=== PATIENT | male | born 1955 | race Caucasian/White ===

== ENCOUNTER 2017-05-20 18:04 | Inpatient (IN) | payer OTHER ==
[~2017-05-20] VITALS: Ht 167.6 cm; Wt 59.0 kg
[2017-05-20 18:15] VITALS: BP 144/89
[2017-05-20] MEDS ORDERED: VITAMIN D1000 UNI1 ORAL (18:20)
[2017-05-20] MEDS ORDERED: VENTOLIN HFA18 GM INH (18:20)
[2017-05-20] MEDS ORDERED: SYMBICORT 1601 PUFFS INH (18:20)
[2017-05-20] MEDS ORDERED: PLAVIX75 MG ORAL (18:20)
[2017-05-20] MEDS ORDERED: CARVEDILOL3.125 MG ORAL (18:20)
[2017-05-20] MEDS ORDERED: TAMSULOSIN HCL0.4 MG ORAL (18:20)
[2017-05-20] MEDS ORDERED: LISINOPRIL20 MG ORAL (18:20)
[2017-05-20] MEDS ORDERED: SPIRIVA18 MCG INH (18:20)
[2017-05-20] MEDS ORDERED: Albuterol ud Inhalation HHN ONE (18:30)
[2017-05-20] MEDS ORDERED: Ketorolac 30mg Inj IV ONE (18:30)
[2017-05-20] MEDS ORDERED: Morphine Sulfate 2mg/ml Inj IVP ONE (18:30)
[2017-05-20] MEDS ORDERED: Ipratropium 0.02% Inh Soln 2.5ml UD HHN ONE (18:30)
[2017-05-20 19:14] LABS: BASOPHILS % (AUTO) 1.5 % (0.0-2.0); EOSINOPHILS % (AUTO) 0.9 % (0.0-3.0); LYMPHOCYTES % (AUTO) 16.7 % (20.0-45.0); MEAN CORPUSCULAR HEMOGLOBIN 22.4 PG (27.0-31.0); MEAN CORPUSCULAR HGB CONC 28.5 G/DL (32.0-36.0); MEAN CORPUSCULAR VOLUME 79 FL (80-99); MEAN PLATELET VOLUME 6.9 FL (6.5-10.1); MONOCYTES % (AUTO) 5.4 % (1.0-10.0); NEUTROPHILS % (AUTO) 75.6 % (45.0-75.0); PLATELET COUNT 258 K/UL (150-450); RED BLOOD COUNT 3.91 M/UL (4.70-6.10); RED CELL DISTRIBUTION WIDTH 19.4 % (11.6-14.8)
[2017-05-20 19:16] LABS: APPEARANCE,URINE CLEAR; KETONES,URINE NEGATIVE (NEGATIVE); LEUKOCYTE ESTERASE ,URINE 1+ (NEGATIVE); NITRITE,URINE NEGATIVE (NEGATIVE); PH,URINE 6.5 (4.5-8.0); PROTEIN,URINE 2+ (NEGATIVE); UROBILINOGEN,URINE NORMAL MG/DL (0.0-1.0)
[2017-05-20 19:22] LABS: ANION GAP 7 mmol/L (5-15); CALCIUM 9.6 MG/DL (8.5-10.1); CARBON DIOXIDE 31 MMOL/L (21-32); CHLORIDE 107 MMOL/L (98-107); CREATININE 0.8 MG/DL (0.55-1.30); GLOMERULAR FILTRATION RATE > 60 mL/min (>60); POTASSIUM 3.7 MMOL/L (3.5-5.1); SODIUM 144 MMOL/L (136-145)
[2017-05-20 19:26] LABS: ALANINE AMINOTRANSFERASE 14 U/L (12-78); ALBUMIN/GLOBULIN RATIO 0.7 (1.0-2.7); ASPARTATE AMINO TRANSFERASE 13 U/L (15-37); LIPASE 211 U/L (73-393); TOTAL PROTEIN 6.9 G/DL (6.4-8.2)
[2017-05-20 19:29] LABS: BACTERIA,URINE OCCASIONAL /HPF; RBC,URINE TNTC /HPF (0 - 0); SQUAMOUS EPITHELIAL CELL,UR OCCASIONAL /LPF (NONE/OCC)
[2017-05-20 19:35] LABS: PROTHROMBIN TIME 10.9 SEC (9.30-11.50)
[2017-05-20 19:41] VITALS: BP 134/88
[2017-05-20] MEDS ORDERED: Tamsulosin 0.4mg cap ORAL ONE (21:28)
[2017-05-20] MEDS ORDERED: Morphine Sulfate 4mg/ml Inj IVP ONE (21:30)
[2017-05-20] MEDS ORDERED: Tamsulosin 0.4mg cap ORAL STA (21:31)
--- NOTE | 2017-05-20 22:15 | Emergency Room Report ---
History of Present Illness General Chief Complaint: Abdominal Pain Source: Patient, EMS Present Illness HPI Patient presents with 3 days of right flank pain which is severe 8/10, pressure and aching. He also has pain in his right shoulder. He's had kidney stones in the past. The pain is constant and worsening. He has no pain medicines at home at this time. The pain in his arm is from a prior fracture. This pain is aching and radiates towards his body from the shoulder. He denies numbness. No recent trauma. Unable to see pain management MD for shoulder pain. Dyspnea and use of inhalers with wheezing. Non-productive cough. No dysuria, hematuria, change in bowels, rashes. No fevers. He is depressed because of the lack of pain control, though not suicidal. Allergies: Coded Allergies: No Known Allergies (Unverified , 05/20/17) Patient History Past Medical History: see triage record Social History: Reports: smoking Social History Narrative lives by himself Reviewed Nursing Documentation: PMH: Agreed, PSxH: Agreed Nursing Documentation-PMH Past Medical History: No History, Except For Hx Hypertension: Yes Hx COPD: Yes Review of Systems All Other Systems: negative except mentioned in HPI Physical Exam Vital Signs Date Time Temp Pulse Resp B/P (MAP) Pulse Ox O2 Delivery O2 Flow Rate FiO2 05/20/17 18:03 98.2 80 14 162/57 93 Room Air 05/20/17 19:10 21 Sp02 EP Interpretation: reviewed, normal General Appearance: no apparent distress, GCS 15, Chronically Ill Head: normocephalic, atraumatic Eyes: bilateral eye normal inspection, bilateral eye PERRL ENT: moist mucus membranes Neck: supple Respiratory: chest non-tender, wheezing, expiration, other - barrel chest Cardiovascular #1: regular rate, rhythm Cardiovascular #2: 2+ radial (R) Gastrointestinal: normal inspection, normal bowel sounds, non tender, no mass, non-distended Genitourinary: CVA tenderness (R) Musculoskeletal: back normal, gait/station normal, normal range of motion, tender - R upper arm/shoulder without crepetance Neurologic: alert, oriented x3, grossly normal Psychiatric: depressed affect Skin: normal inspection, warm/dry Medical Decision Making Diagnostic Impression: Primary Impression: Renal stone Additional Impressions: Hydronephrosis Qualified Codes: N13.2 - Hydronephrosis with renal and ureteral calculous obstruction Shoulder pain Qualified Codes: M25.511 - Pain in right shoulder; G89.29 - Other chronic pain COPD (chronic obstructive pulmonary disease) Qualified Codes: J43.1 - Panlobular emphysema ER Course Patient presents with R flank pain and shoulder pain with h/o renal stones. Ddx ; nephrolithiasis, renal colic, pyelonephritis, UTI, muscle strain amongst others. The shoulder pain sounds chronic although concern about hepatic referral. Evaluation with EKG, CXR, R shoulder film, renal ultrasound, labs. Treatment with analgesia, hydration, breathing treatments. Improved with breathing treatments. Labs unremarkable. U/S with hydronephrosis. CXR COPD. R shoulder with prior fx appears well healed. Flomax given. Repeat analgesia. Pain still severe. Based on obstructing stone and pain, admit med Dr. Mcgovern. Laboratory Tests Test 05/20/17 17:06 05/20/17 18:56 White Blood Count 8.0 K/UL (4.8-10.8) Red Blood Count 3.91 M/UL (4.70-6.10) L Hemoglobin 8.8 G/DL (14.2-18.0) L Hematocrit 30.8 % (42.0-52.0) L Mean Corpuscular Volume 79 FL (80-99) L Mean Corpuscular Hemoglobin 22.4 PG (27.0-31.0) L Mean Corpuscular Hemoglobin Concent 28.5 G/DL (32.0-36.0) L Red Cell Distribution Width 19.4 % (11.6-14.8) H Platelet Count 258 K/UL (150-450) Mean Platelet Volume 6.9 FL (6.5-10.1) Neutrophils (%) (Auto) 75.6 % (45.0-75.0) H Lymphocytes (%) (Auto) 16.7 % (20.0-45.0) L Monocytes (%) (Auto) 5.4 % (1.0-10.0) Eosinophils (%) (Auto) 0.9 % (0.0-3.0) Basophils (%) (Auto) 1.5 % (0.0-2.0) Prothrombin Time 10.9 SEC (9.30-11.50) Prothrombin Time INR 1.0 (0.9-1.1) PTT 25 SEC (23-33) Sodium Level 144 MMOL/L (136-145) Potassium Level 3.7 MMOL/L (3.5-5.1) Chloride Level 107 MMOL/L (98-107) Carbon Dioxide Level 31 MMOL/L (21-32) Anion Gap 7 mmol/L (5-15) Blood Urea Nitrogen 19 mg/dL (7-18) H Creatinine 0.8 MG/DL (0.55-1.30) Estimate Glomerular Filtration Rate > 60 mL/min (>60) Glucose Level 93 MG/DL (74-106) Calcium Level 9.6 MG/DL (8.5-10.1) Total Bilirubin 0.2 MG/DL (0.2-1.0) Aspartate Amino Transferase (AST) 13 U/L (15-37) L Alanine Aminotransferase (ALT) 14 U/L (12-78) Alkaline Phosphatase 88 U/L (46-116) Total Creatine Kinase 81 U/L (26-308) Troponin I 0.004 ng/mL (0.000-0.056) Total Protein 6.9 G/DL (6.4-8.2) Albumin 2.9 G/DL (3.4-5.0) L Globulin 4.0 g/dL Albumin/Globulin Ratio 0.7 (1.0-2.7) L Lipase 211 U/L (73-393) Urine Color Pale yellow Urine Appearance Clear Urine pH 6.5 (4.5-8.0) Urine Specific [place] 1.015 (1.005-1.035) Urine Protein 2+ (NEGATIVE) H Urine Glucose (UA) Negative (NEGATIVE) Urine Ketones Negative (NEGATIVE) Urine Occult Blood 4+ (NEGATIVE) H Urine Nitrite Negative (NEGATIVE) Urine Bilirubin Negative (NEGATIVE) Urine Urobilinogen Normal MG/DL (0.0-1.0) Urine Leukocyte Esterase 1+ (NEGATIVE) H Urine RBC Tntc /HPF (0 - 0) H Urine WBC 2-4 /HPF (0 - 0) Urine Squamous Epithelial Cells Occasional /LPF Urine Bacteria Occasional /HPF (NONE) EKG Diagnostic Results Rate: normal Rhythm: NSR ST Segments: no acute changes Rhythm Strip Diag. Results EP Interpretation: yes Rhythm: NSR, no PVC's, no ectopy Chest X-Ray Diagnostic Results Chest X-Ray Diagnostic Results : Chest X-Ray Ordered: Yes # of Views/Limited/Complete: 1 View Indication: Other EP Interpretation: Yes Interpretation: no effusion, no pneumothorax, other - COPD Impression: Other Electronically Signed by: Electronically signed by Girma Dobbins MD Other X-Ray Diagnostic Results Other X-Ray Diagnostic Results : X-Ray ordered: r shoulder # of Views/Limited Vs Complete: 3 View EP Interpretation: Yes Interpretation: no dislocation, no soft tissue swelling, other - Old fracture Impression: Other Electronically Signed by: Electronically signed by Girma Dobbins MD CT/MRI/US Diagnostic Results CT/MRI/US Diagnostic Results : Imaging Test Ordered: renal us Impression Mild to moderate right hydronephrosis. Echogenic and shadowing foci in the right kidney suggestive stones. Also appears to be dislodged in the elbow ureteral junctional. The suspected cause of the hydronephrosis. He does not be visualized. Bilateral renal cysts. Debris noted in the daughter suggested cystitis. Last Vital Signs Date Time Temp Pulse Resp B/P (MAP) Pulse Ox O2 Delivery O2 Flow Rate FiO2 05/20/17 23:23 98.7 68 23 102/67 99 Room Air 21 Status: improved Disposition: ADMITTED INPATIENT Condition: Serious Referrals: [employer] [facility],KEN[facility] (PCP) Girma Dobbins M.D. May 20, 2017 22:15
[2017-05-20 23:13] VITALS: BP 102/67
[2017-05-21 04:25] VITALS: BP 116/75
[2017-05-21] MEDS ORDERED: Morphine Sulfate 2mg/ml Inj IVP PRN ×2 (06:00→06:15)
[2017-05-21] MEDS ORDERED: Nitroglycerin Subl 0.4mg tab SL PRN (06:00)
[2017-05-21] MEDS ORDERED: Mylanta II UD 30ml ORAL PRN (06:00)
[2017-05-21] MEDS ORDERED: Miralax 17gm pkt ORAL PRN (06:00)
[2017-05-21] MEDS: D5 1/2NS 1,000 ML IV SCH ×2 (06:17→20:12)
[2017-05-21] MEDS: cefTRIAXone 1 GM in D5W 55 ML IVPB SCH (06:18)
[2017-05-21] MEDS: Morphine Sulfate 4mg/ml Inj IV PRN ×5 (06:20→20:52)
[2017-05-21 07:12] LABS: APPEARANCE,URINE CLEAR; KETONES,URINE NEGATIVE (NEGATIVE); LEUKOCYTE ESTERASE ,URINE 1+ (NEGATIVE); NITRITE,URINE NEGATIVE (NEGATIVE); PH,URINE 6 (4.5-8.0); PROTEIN,URINE 2+ (NEGATIVE); UROBILINOGEN,URINE NORMAL MG/DL (0.0-1.0)
[2017-05-21 07:42] LABS: BACTERIA,URINE FEW /HPF; RBC,URINE 20-30 /HPF (0 - 0); SQUAMOUS EPITHELIAL CELL,UR FEW /LPF (NONE/OCC)
[2017-05-21 08:00] VITALS: BP 121/77
[2017-05-21] MEDS: Heparin 5000 units/ml inj SUBQ SCH ×2 (08:46→20:56)
[2017-05-21] MEDS: Lisinopril 20mg tab ORAL SCH (08:47)
[2017-05-21] MEDS: Tamsulosin 0.4mg cap ORAL SCH ×2 (08:47→17:24)
--- NOTE | 2017-05-21 09:14 | Diagnostic Imaging Report ---
Indication: Chest pain Technique: One view of the chest Comparison: 04/09/2005 Findings: There is again demonstrated elevation of left hemidiaphragm. Interim development of a 13 mm spiculated nodule in the right midlung. There is some atelectasis at the left lung base. Lungs and pleural spaces are otherwise clear. Mild hyperinflation suggests COPD. Heart size is normal. There is thoracic scoliotic deformity again demonstrated Impression: Right midlung spiculated nodule, new since 2004, worrisome for neoplasm. Recommend chest CT for further evaluation. This was discussed with Dr. Mcgovern at the time of interpretation Stable elevation left hemidiaphragm No acute abnormality Other findings as noted, including scoliosis This agrees with the preliminary interpretation provided by the emergency room physician
--- NOTE | 2017-05-21 09:15 | Diagnostic Imaging Report ---
Indication: PAIN Technique: 3 views of the right shoulder Comparison: none Findings: There is an old healed fracture deformity of the right shoulder. No acute fractures. No dislocations. Joint spaces are preserved Impression:Positive for old healed right shoulder fracture. No acute bony trauma
--- NOTE | 2017-05-21 09:20 | Diagnostic Imaging Report ---
Indication: Right flank pain x3 days, history renal stones, occasional hematuria Technique: Grayscale and duplex images of the kidneys, retroperitoneum, and bladder were obtained. Comparison:None Findings: Right kidney measures 13.7 cm in length. Left kidney measures 13.1 cm in length. Both kidneys demonstrate slightly increased echogenicity.. There is moderate right hydronephrosis. Intrarenal calculi are demonstrated within the collecting system, largest in the lower pole measuring 12 mm diameter. There is what appears to be a calculus at the right ureteropelvic junction measuring at least 11 mm diameter. No left hydronephrosis. Multiple cysts are seen in both kidneys.. Normal inferior vena cava. Bladder contains urine with debris in it. Ureteral jets were not demonstrated. Impression: Moderate right hydronephrosis, possibly due to a large calculus at the right ureteropelvic junction. Multiple right intrarenal calculi Debris within the urinary bladder, possibly blood given history of hematuria Equivocal mildly increased echogenicity of the kidneys, could indicate medical renal disease. Bilateral renal cysts.
[2017-05-21 11:36] VITALS: BP 114/76
[2017-05-21 12:00] VITALS: BP 114/72
[2017-05-21] MEDS ORDERED: Ketorolac 30mg Inj IV PRN (14:00)
--- NOTE | 2017-05-21 14:58 | History and Physical ---
History of Present Illness General Date patient seen: May 21, 2017 Reason for Hospitalization: Abdominal Pain Present Illness HPI 61 year old male with hx of COPD presented with CC of left flank pain. He was diagnosed to have left kidney stone at Ureteropelvic junction. He is admitted for intractable pain. Allergies: Coded Allergies: No Known Allergies (Unverified , 05/20/17) Medication History Scheduled Albuterol Sulfate (Ventolin Hfa), 2 PUFFS INH EVERY 4 HOURS, (Reported) Budesonide/Formoterol Fumarate (Symbicort 160-4.5 Mcg Inhaler), Unknown Dose INH TWICE A DAY, (Reported) Carvedilol* (Carvedilol*), Unknown Dose ORAL DAILY, (Reported) Cholecalciferol (Vitamin D3)* (Vitamin D*), Unknown Dose ORAL DAILY, (Reported) Clopidogrel Bisulfate* (Plavix*), 75 MG ORAL DAILY, (Reported) Lisinopril (Lisinopril*), Unknown Dose ORAL DAILY, (Reported) Tamsulosin Hcl (Tamsulosin Hcl*), 0.4 MG ORAL BID, (Reported) Tiotropium [place]* (Spiriva*), 1 PUFF INH DAILY, (Reported) Patient History Healthcare decision maker Resuscitation status Full Code Advanced Directive on File Past Medical/Surgical History Past Medical/Surgical History: (1) COPD (chronic obstructive pulmonary disease) Review of Systems Genitourinary: Reports: other - flank pain All Other Systems: negative except mentioned in HPI Physical Exam General Appearance: WD/WN Lines, tubes and drains: peripheral HEENT: normocephalic, atraumatic Neck: non-tender, normal alignment, supple Respiratory/Chest: chest wall non-tender, lungs clear Cardiovascular/Chest: normal peripheral pulses, normal rate Abdomen: normal bowel sounds, non tender Extremities: normal range of motion, normal inspection Skin Exam: normal pigmentation Neurologic: operator prefinish II-XII grossly normal Lymphatic: anterior cervical Last 24 Hour Vital Signs Date Time Temp Pulse Resp B/P (MAP) Pulse Ox O2 Delivery O2 Flow Rate FiO2 05/21/17 12:00 96.6 86 19 114/72 97 05/21/17 12:00 96.6 05/21/17 11:36 97.2 57 114/76 95 Room Air 05/21/17 08:48 60 05/21/17 08:47 121/72 05/21/17 08:00 97.6 56 56 121/77 95 05/21/17 06:42 97 Room Air 05/21/17 04:25 97.5 60 18 116/75 97 05/21/17 04:00 Room Air 05/20/17 23:23 98.7 68 23 102/67 99 Room Air 21 05/20/17 23:13 98.7 68 23 102/67 99 Room Air 21 05/20/17 19:41 98.7 87 20 134/88 96 Room Air 21 05/20/17 19:20 72 20 96 Room Air 21 05/20/17 19:10 64 16 93 Room Air 21 05/20/17 19:10 64 16 Room Air 21 05/20/17 18:15 98.7 75 23 144/89 96 Room Air 05/20/17 18:03 98.2 80 14 162/57 93 Room Air Intake and Output 05/21/17 05/22/17 19:00 07:00 Intake Total 525 ml Balance 525 ml IV Total 525 ml Laboratory Tests Test 05/20/17 17:06 05/20/17 18:56 05/21/17 06:45 White Blood Count 8.0 K/UL (4.8-10.8) Red Blood Count 3.91 M/UL (4.70-6.10) L Hemoglobin 8.8 G/DL (14.2-18.0) L Hematocrit 30.8 % (42.0-52.0) L Mean Corpuscular Volume 79 FL (80-99) L Mean Corpuscular Hemoglobin 22.4 PG (27.0-31.0) L Mean Corpuscular Hemoglobin Concent 28.5 G/DL (32.0-36.0) L Red Cell Distribution Width 19.4 % (11.6-14.8) H Platelet Count 258 K/UL (150-450) Mean Platelet Volume 6.9 FL (6.5-10.1) Neutrophils (%) (Auto) 75.6 % (45.0-75.0) H Lymphocytes (%) (Auto) 16.7 % (20.0-45.0) L Monocytes (%) (Auto) 5.4 % (1.0-10.0) Eosinophils (%) (Auto) 0.9 % (0.0-3.0) Basophils (%) (Auto) 1.5 % (0.0-2.0) Prothrombin Time 10.9 SEC (9.30-11.50) Prothromb Time International Ratio 1.0 (0.9-1.1) Activated Partial Thromboplast Time 25 SEC (23-33) Sodium Level 144 MMOL/L (136-145) Potassium Level 3.7 MMOL/L (3.5-5.1) Chloride Level 107 MMOL/L (98-107) Carbon Dioxide Level 31 MMOL/L (21-32) Anion Gap 7 mmol/L (5-15) Blood Urea Nitrogen 19 mg/dL (7-18) H Creatinine 0.8 MG/DL (0.55-1.30) Estimat Glomerular Filtration Rate > 60 mL/min (>60) Glucose Level 93 MG/DL (74-106) Calcium Level 9.6 MG/DL (8.5-10.1) Total Bilirubin 0.2 MG/DL (0.2-1.0) Aspartate Amino Transf (AST/SGOT) 13 U/L (15-37) L Alanine Aminotransferase (ALT/SGPT) 14 U/L (12-78) Alkaline Phosphatase 88 U/L (46-116) Total Creatine Kinase 81 U/L (26-308) Troponin I 0.004 ng/mL (0.000-0.056) Total Protein 6.9 G/DL (6.4-8.2) Albumin 2.9 G/DL (3.4-5.0) L Globulin 4.0 g/dL Albumin/Globulin Ratio 0.7 (1.0-2.7) L Lipase 211 U/L (73-393) Urine Color Pale yellow Pale yellow Urine Appearance Clear Clear Urine pH 6.5 (4.5-8.0) 6 (4.5-8.0) Urine Specific [place] 1.015 (1.005-1.035) 1.015 (1.005-1.035) Urine Protein 2+ (NEGATIVE) H 2+ (NEGATIVE) H Urine Glucose (UA) Negative (NEGATIVE) Negative (NEGATIVE) Urine Ketones Negative (NEGATIVE) Negative (NEGATIVE) Urine Occult Blood 4+ (NEGATIVE) H 4+ (NEGATIVE) H Urine Nitrite Negative (NEGATIVE) Negative (NEGATIVE) Urine Bilirubin Negative (NEGATIVE) Negative (NEGATIVE) Urine Urobilinogen Normal MG/DL (0.0-1.0) Normal MG/DL (0.0-1.0) Urine Leukocyte Esterase 1+ (NEGATIVE) H 1+ (NEGATIVE) H Urine RBC Tntc /HPF (0 - 0) H 20-30 /HPF (0 - 0) H Urine WBC 2-4 /HPF (0 - 0) 5-10 /HPF (0 - 0) H Urine Squamous Epithelial Cells Occasional /LPF Few /LPF (NONE/OCC) Urine Bacteria Occasional /HPF (NONE) Few /HPF (NONE) Height (Feet): 5 Height (Inches): 9.00 Weight (Pounds): 130 Medications Current Medications Medications (Trade) Dose Ordered Sig/Katya Route PRN Reason Start Time Stop Time Status Last Admin Dose Admin Acetaminophen (Tylenol) 650 mg Q4H PRN ORAL fever 05/21/17 06:00 06/20/17 05:59 Al Hydroxide/Mg Hydroxide (Mylanta II) 30 ml Q6H PRN ORAL dyspepsia 05/21/17 06:00 06/20/17 05:59 Carvedilol (Coreg) 3.125 mg DAILY ORAL 05/21/17 09:00 06/20/17 08:59 05/21/17 08:48 Ceftriaxone Sodium 1 gm/ Dextrose 55 ml @ 110 mls/hr Q24H IVPB 05/21/17 06:00 05/28/17 05:59 05/21/17 06:18 Dextrose (Dextrose 50%) STAT PRN IV Hypoglycemia 05/21/17 06:00 06/20/17 05:59 Dextrose/Sodium Chloride 1,000 ml @ 75 mls/hr [id number] IV 05/21/17 05:46 06/20/17 05:45 05/21/17 06:17 Diphenhydramine HCl (Benadryl) 25 mg Q6H PRN ORAL Itching/Pruritis 05/21/17 06:00 06/20/17 05:59 Heparin Sodium (Porcine) (Heparin 5000 units/ml) 5,000 units EVERY 12 HOURS SUBQ 05/21/17 09:00 06/20/17 08:59 05/21/17 08:46 Ketorolac Tromethamine (Toradol 30mg) 15 mg Q6H PRN IV breakthrough pain 7-10 05/21/17 14:00 05/26/17 13:59 Lisinopril (Prinivil) 20 mg DAILY ORAL 05/21/17 09:00 06/20/17 08:59 05/21/17 08:47 Morphine Sulfate (Morphine Sulfate) 4 mg Q2H PRN IV For Pain (7-10) 05/21/17 06:00 05/28/17 05:59 05/21/17 11:31 Nitroglycerin (Ntg) 0.4 mg Q5M X 3 DOSES PRN SL Prn Chest Pain 05/21/17 06:00 06/20/17 05:59 Ondansetron HCl (Zofran) 4 mg Q6H PRN IVP Nausea & Vomiting 05/21/17 06:00 06/20/17 05:59 Polyethylene Glycol (Miralax) 17 gm HSPRN PRN ORAL Constipation 05/21/17 06:00 06/20/17 05:59 Tamsulosin HCl (Flomax) 0.4 mg BID ORAL 05/21/17 09:00 06/20/17 08:59 05/21/17 08:47 Temazepam (Restoril) 15 mg HSPRN PRN ORAL Insomnia 05/21/17 06:00 05/28/17 05:59 Assessment/Plan Problem List: (1) Renal stone ICD Codes: N20.0 - Calculus of kidney SNOMED: 73014026 (2) COPD (chronic obstructive pulmonary disease) ICD Codes: J44.9 - Chronic obstructive pulmonary disease, unspecified SNOMED: 20221680 Qualifiers: Qualified Codes: J43.1 - Panlobular emphysema (3) Hydronephrosis ICD Codes: N13.30 - Unspecified hydronephrosis SNOMED: 32741813 Qualifiers: Qualified Codes: N13.2 - Hydronephrosis with renal and ureteral calculous obstruction Assessment/Plan npo IV fluids pain management Urology evaluation. MAXIMILIANO COOLEY May 21, 2017 14:58
[2017-05-21 16:00] VITALS: BP 129/72
[2017-05-21] MEDS ORDERED: Tubing IV Secondary IV ONE (16:12)
[2017-05-21] MEDS ORDERED: D5 1/2NS 1000ml IV ONE (16:12)
[2017-05-21 20:00] VITALS: BP 128/78
[2017-05-21] MEDS: Ketorolac 30mg Inj IV SCH (20:52)
[2017-05-21] MEDS ORDERED: Tamsulosin 0.4mg cap ORAL SCH (21:00)
[2017-05-22] VITALS (13 sets, daily range): BP systolic 101–148; BP diastolic 70–88
[2017-05-22] MEDS: Morphine Sulfate 4mg/ml Inj IV PRN ×7 (00:18→20:47)
--- NOTE | 2017-05-22 00:30 | Consultation ---
DATE OF CONSULTATION: 05/21/2017 UROLOGY CONSULTATION ATTENDING/CONSULTING PHYSICIAN: Raheem Mcgovern M.D. CHIEF COMPLAINT/HISTORY OF PRESENT ILLNESS: I was asked by Dr. Mcgovern to evaluate this 62-year-old [place] Citizen gentleman regarding history of a right UPJ stone with hydronephrosis secondary to same. Briefly, the patient has a previous history of nephrolithiasis. He was seen at [facility] approximately a year ago regarding the same. He eventually followed up with Dr. Gutierrez to plan for surgery, but in the interim lost his insurance. He had since regained insurance, but has not been back to see the urologist yet. He presented to the hospital with right-sided flank and abdominal pain in addition to COPD exacerbation. Given the above, I was asked to evaluate the patient. PAST MEDICAL HISTORY: 1. Chronic obstructive pulmonary disease. 2. Nephrolithiasis. MEDICATIONS: Please see the chart for current medications and administration details. Briefly, the patient's medications include Toradol for pain. ALLERGIES: No known drug allergies. SOCIAL HISTORY: Unremarkable for tobacco, alcohol, or drug use. FAMILY HISTORY: Noncontributory. REVIEW OF SYSTEMS: A 12-system review of systems is essentially unremarkable outside of what is described above. PHYSICAL EXAMINATION: GENERAL: The patient is an older [place] Citizen gentleman, awake, alert, and oriented x4, very pleasant, no obvious distress. HEENT: NC/AT. EOMI. NECK: Supple. Full range of motion. Oropharynx clear. CHEST: Within normal limits. ABDOMEN: Soft, nontender, and nondistended. Somewhat cachectic. EXTREMITIES: Warm and well perfused. No cyanosis, clubbing, or edema. BACK: No true CVA tenderness to percussion. GENITOURINARY: Reveals normal male external genitalia. LABORATORY DATA: White blood cell count 8, hematocrit 30.8, and platelets 258,000. Sodium 144, potassium 3.7, chloride 107, bicarbonate 31, BUN 19, creatinine 0.8, glucose 93, and calcium 9.6. LFTs within normal limits. Troponin negative. Urinalysis, specific gravity 1.015 and pH 6. Dip test notable for 2+ protein, 4+ occult blood, 1+ leukocyte esterase, and few bacteria seen. DIAGNOSTIC IMAGING: Renal ultrasound with moderate right hydronephrosis, possibly secondary to large calculus at the right ureteropelvic junction measuring 11 mm in size. There is no left hydronephrosis, multiple cysts are seen in both kidneys. There are multiple right intrarenal calculi. There is debris in the bladder, possibly blood given history of hematuria. ASSESSMENT AND PLAN: In summary, the patient is a 62-year-old gentleman with a longstanding history of kidney stones. He was previously seen at an outside facility regarding the same. He had planned intervention, but lost his insurance, which he has now regained. He presents to the hospital with right-sided abdominal flank pain. Workup with an ultrasound revealed a possible 11 mm right UPJ stone with hydronephrosis secondary to same. Physical exam is unremarkable for any significant right CVA tenderness at this time. Laboratory data reveals evidence of microhematuria. Diagnostic imaging revealed the findings described above. Today at the bedside, I discussed these findings with the patient. We will keep him on Toradol and fluids and antibiotics if he appears to be starting to feel better. If he continues to improve, we will discharge him home and he can follow up as an outpatient with a planned contracted urologist to treat his stones. If he fails to improve, I will take him to the operating room for cystoscopy and placement of a right double-J stent to temporarily relieve his discomfort. The patient understands that even if the stent is placed, he will eventually need outpatient followup with a planned contracted urologist to treat his stones and remove the stent. Thank you for allowing me to participate in the care of this nice gentleman. Please do not hesitate to contact me with any questions that you may further have regarding his care. I will see him with you as needed. Daniel Fischer M.D. DR: PAPO JOB#: [id number] CC:
[2017-05-22] MEDS: Ketorolac 30mg Inj IV SCH ×4 (01:53→17:55)
[2017-05-22] MEDS: cefTRIAXone 1 GM in D5W 55 ML IVPB SCH (06:30)
[2017-05-22 07:27] LABS: BASOPHILS % (AUTO) 2.1 % (0.0-2.0); LYMPHOCYTES % (AUTO) 20.6 % (20.0-45.0); MEAN CORPUSCULAR HEMOGLOBIN 22.6 PG (27.0-31.0); MEAN CORPUSCULAR HGB CONC 28.7 G/DL (32.0-36.0); MEAN CORPUSCULAR VOLUME 79 FL (80-99); MEAN PLATELET VOLUME 7.1 FL (6.5-10.1); MONOCYTES % (AUTO) 7.2 % (1.0-10.0); NEUTROPHILS % (AUTO) 69.1 % (45.0-75.0); PLATELET COUNT 222 K/UL (150-450); RED BLOOD COUNT 3.74 M/UL (4.70-6.10); RED CELL DISTRIBUTION WIDTH 19.6 % (11.6-14.8); WHITE BLOOD COUNT 5.1 K/UL (4.8-10.8)
[2017-05-22 07:32] LABS: INR 1.1 (0.9-1.1); PROTHROMBIN TIME 11.5 SEC (9.30-11.50)
[2017-05-22 07:50] LABS: LACTATE DEHYDROGENASE 133 U/L (81-234)
[2017-05-22 07:57] LABS: ALANINE AMINOTRANSFERASE 21 U/L (12-78); ALBUMIN/GLOBULIN RATIO 0.7 (1.0-2.7); AMYLASE 51 U/L (25-115); ANION GAP 4 mmol/L (5-15); ASPARTATE AMINO TRANSFERASE 17 U/L (15-37); CALCIUM 9.5 MG/DL (8.5-10.1); CARBON DIOXIDE 29 MMOL/L (21-32); CHLORIDE 107 MMOL/L (98-107); CREATININE 0.5 MG/DL (0.55-1.30); GLOMERULAR FILTRATION RATE > 60 mL/min (>60); LIPASE 81 U/L (73-393); POTASSIUM 3.2 MMOL/L (3.5-5.1); SODIUM 140 MMOL/L (136-145); TOTAL PROTEIN 5.8 G/DL (6.4-8.2)
[2017-05-22 08:07] LABS: IRON 27 ug/dL (50-175); TOTAL IRON BINDING CAPACITY 273 ug/dL (250-450)
[2017-05-22] MEDS: D5 1/2NS 1,000 ML IV SCH ×2 (08:26→22:06)
[2017-05-22] MEDS: Heparin 5000 units/ml inj SUBQ SCH ×2 (08:33→22:04)
[2017-05-22] MEDS ORDERED: Potassium Chloride 10 MEQ in NS 110 ML IVPB SCH (09:00)
[2017-05-22 09:01] LABS: ERYTHROCYTE SEDIMENTATION RATE 4 MM/HR (0-20); PATH BLOOD SMEAR/OMC SENT TO PATHOLOGIST; RETICULOCYTE COUNT 2.7 % (0.0-2.0)
--- NOTE | 2017-05-22 10:34 | Diagnostic Imaging Report ---
Indication: Mass Technique: CT CHEST WITH CONTRAST. CT of the chest was obtained utilizing automated exposure control after the contrast. Axial, coronal and sagittal reformats were created. CT dose: Total DLP 746 mGycm; CTDI vol 0.2, 8.1, 129.8, 15 mGy Comparison: Correlation made to concurrent chest radiograph. Comparison made to CT of the chest 04/09/2005. Findings: Emphysematous changes are noted bilaterally, most severe in the apices. These have progressed compared to the prior CT. Within the superior segment of the right lower lobe there are rounded nodules with somewhat spiculated appearance. The larger more inferior nodule measures up to 1.2 cm in diameter and the more posterior and superior in nodule measures up to 1.1 cm in diameter. These nodes appear to be connected by a thin bridge of tissue. They are just underneath the right major fissure (series 9 image 58; series 8 image #32; series 7 image #35). No additional nodule is identified. There is unchanged elevation of the left hemidiaphragm with likely chronic scarring/atelectasis in the left lower lobe. There is trace right pleural effusion and dependent atelectasis in the right lower lobe. There is no abnormal pleural enhancement. A focus of calcification is noted within the posterior pleural on the right (series 5 image #26). Thoracic aorta is normal in caliber and slightly tortuous. Atherosclerotic vascular calcifications are noted, mild in the thoracic aorta and moderate to severe in the abdominal aorta. There is no evidence of aortic dissection. No large main or central pulmonary embolism identified. The pulmonary arteries are enlarged. There is no hilar or mediastinal adenopathy. Thyroid unremarkable in appearance. No suspicious bony lesion is identified. There is scoliosis with multilevel degenerative change of the thoracic spine. There is a simple renal cyst in the left kidney. There is mild to moderate hydronephrosis on the right related to a 1.5 cm stone in the right proximal ureter. Impression: Two adjacent spiculated nodules in the superior segment of the right lower lobe as above concerning for primary lung malignancy. Progressive emphysema. Enlargement of the pulmonary arteries suggesting pulmonary arterial hypertension. 1.5 cm stone in the proximal right ureter with right-sided hydroureter nephrosis. Additional findings as above. The CT scanner at [facility] is accredited by the [employer] and the scans are performed using protocols designed to limit radiation exposure to as low as reasonably achievable to attain images of sufficient resolution adequate for diagnostic evaluation.
[2017-05-22 10:38] LABS: ANISOCYTOSIS 2+; BAND NEUTROPHILS % (MANUAL) 0 % (0-8); BASOPHILS % (MANUAL) 1 % (0-2); EOSINOPHILS % (MANUAL) 1 % (0-3); HYPOCHROMASIA 2+; LYMPHOCYTES % (MANUAL) 19 % (20-45); MICROCYTES 1+; NEUTROPHILS % (MANUAL) 71 % (45-75); PLATELET ESTIMATE ADEQUATE; PLATELET MORPHOLOGY NORMAL; TOTAL CELLS COUNTED 100
--- NOTE | 2017-05-22 11:31 | Cardiology Report ---
APPROVED REPORT EKG Measurement Heart [id number] Normal sinus rhythm Normal ECG
[2017-05-22] MEDS: Tamsulosin 0.4mg cap ORAL SCH ×2 (11:42→17:55)
[2017-05-22] MEDS: Lisinopril 20mg tab ORAL SCH (11:43)
--- NOTE | 2017-05-22 12:40 | Anethesia Preoperative Eval ---
Anesthesia Pre-op PMH/ROS General Date of Evaluation: May 22, 2017 Anesthesiologist: Jeet ASA Score: ASA 2 Mallampati Score Class I : Soft palate, uvula, fauces, pillars visible Class II: Soft palate, uvula, fauces visible Class III: Soft palate, base of uvula visible Class IV: Only hard plate visible Mallampati Classification: Class II Surgeon: Lynda Diagnosis: Right ureter stone Surgical Procedure: Cystoscopy, right j-stent placement, retrograde pyelogram Anesthesia History: none Family History: no anesthesia problems Allergies: Coded Allergies: No Known Allergies (Unverified , 05/20/17) Past Medical History Cardiovascular: Reports: HTN, CAD - s/p 2 stents 2 year ago; stable as per patient, Denies: NH, valve dz, arrhythmia, other Pulmonary: Reports: COPD, Denies: asthma, PUSHPA, other Gastrointestinal/Genitourinary: Denies: GERD, CRI, ESRD, other Neurologic/Psychiatric: Denies: dementia, CVA, depression/anxiety, TIA, other Endocrine: Denies: DM, hypothyroidism, steroids, other HEENT: Denies: cataract (L), cataract (R), glaucoma, [place] (L), [place] (R), other Hematology/Immune: Denies: anemia, DVT, bleeding disorder, other Musculoskeletal/Integumentary: Denies: OA, RA, DJD, DDD, edema, other PSxH Narrative: Left THR Anesthesia Pre-op Phys. Exam Physician Exam Last Vital Signs Date Time Temp Pulse Resp B/P (MAP) Pulse Ox O2 Delivery O2 Flow Rate FiO2 05/22/17 11:43 131/84 05/22/17 11:07 97.4 05/22/17 08:27 68 05/22/17 08:00 18 93 Room Air 05/20/17 23:23 21 Constitutional: NAD Cardiovascular: RRR Respiratory: CTA Airway Exam Mallampati Score: Class II MO: full ROM: full Anesthesia Pre-op A/P Labs Hematology Test 05/22/17 04:35 White Blood Count 5.1 K/UL (4.8-10.8) Red Blood Count 3.74 M/UL (4.70-6.10) L Hemoglobin 8.4 G/DL (14.2-18.0) L Hematocrit 29.4 % (42.0-52.0) L Mean Corpuscular Volume 79 FL (80-99) L Mean Corpuscular Hemoglobin 22.6 PG (27.0-31.0) L Mean Corpuscular Hemoglobin Concent 28.7 G/DL (32.0-36.0) L Red Cell Distribution Width 19.6 % (11.6-14.8) H Platelet Count 222 K/UL (150-450) Mean Platelet Volume 7.1 FL (6.5-10.1) Neutrophils (%) (Auto) 69.1 % (45.0-75.0) Lymphocytes (%) (Auto) 20.6 % (20.0-45.0) Monocytes (%) (Auto) 7.2 % (1.0-10.0) Eosinophils (%) (Auto) 1.0 % (0.0-3.0) Basophils (%) (Auto) 2.1 % (0.0-2.0) H Differential Total Cells Counted 100 Neutrophils % (Manual) 71 % (45-75) Lymphocytes % (Manual) 19 % (20-45) L Monocytes % (Manual) 8 % (1-10) Eosinophils % (Manual) 1 % (0-3) Basophils % (Manual) 1 % (0-2) Band Neutrophils 0 % (0-8) Platelet Estimate Adequate Platelet Morphology Normal Hypochromasia 2+ Anisocytosis 2+ Microcytosis 1+ Erythrocyte Sedimentation Rate 4 MM/HR (0-20) Reticulocyte Count 2.7 % (0.0-2.0) H Coagulation Test 05/22/17 04:35 Prothrombin Time 11.5 SEC (9.30-11.50) Prothromb Time International Ratio 1.1 (0.9-1.1) Activated Partial Thromboplast Time 30 SEC (23-33) Chemistry Test 05/22/17 04:35 Sodium Level 140 MMOL/L (136-145) Potassium Level 3.2 MMOL/L (3.5-5.1) L Chloride Level 107 MMOL/L (98-107) Carbon Dioxide Level 29 MMOL/L (21-32) Anion Gap 4 mmol/L (5-15) L Blood Urea Nitrogen 13 mg/dL (7-18) Creatinine 0.5 MG/DL (0.55-1.30) L Estimat Glomerular Filtration Rate > 60 mL/min (>60) Glucose Level 79 MG/DL (74-106) Calcium Level 9.5 MG/DL (8.5-10.1) Iron Level 27 ug/dL (50-175) L Total Iron Binding Capacity 273 ug/dL (250-450) Percent Iron Saturation 10 % (15-50) L Unsaturated Iron Binding 246 ug/dL (112-346) Total Bilirubin 0.4 MG/DL (0.2-1.0) Aspartate Amino Transf (AST/SGOT) 17 U/L (15-37) Alanine Aminotransferase (ALT/SGPT) 21 U/L (12-78) Alkaline Phosphatase 80 U/L (46-116) Lactate Dehydrogenase 133 U/L (81-234) Total Protein 5.8 G/DL (6.4-8.2) L Albumin 2.3 G/DL (3.4-5.0) L Globulin 3.5 g/dL Albumin/Globulin Ratio 0.7 (1.0-2.7) L Amylase Level 51 U/L (25-115) Lipase 81 U/L (73-393) Vitamin B12 Level 290 PG/ML (193-986) Folate 19.0 NG/ML (8.6-58.9) Studies Pre-op Studies: EKG - sr Risk Assessment & Plan Assessment: ASA II Plan: GA Status Change Before Surgery: No Pre-Antibiotics Drug: Ancef 1g Given Within 1 Hr of Incision: Yes Time Given: 15:30 ONEYDA SMITH M.D. May 22, 2017 12:40
[2017-05-22] MEDS ORDERED: D5 1/2NS 1000ml IV ONE (15:44)
--- NOTE | 2017-05-22 16:14 | Pre-Procedure Note/Attestation ---
Pre-Procedure Note/Attestation Complete Prior to Procedure Planned Procedure: right Procedure Narrative: cystoscopy, JJ stent placement and fluoroscopy Indications for Procedure Pre-Operative Diagnosis: R ureteral stone/ hydro/ colic Attestation I attest that I discussed the nature of the procedure; its benefits; risks and complications; and alternatives (and the risks and benefits of such alternatives ), prior to the procedure, with the patient (or the patient's legal sales representative advertising). I attest that, if there was a reasonable possibility of needing a blood transfusion, the patient (or the patient's legal sales representative advertising) was given the [facility] standardized written summary, pursuant to the William Derek Blood Safety Act ([place] Health and Safety Code # 1645, as amended). I attest that I re-evaluated the patient just prior to the surgery and that there has been no change in the patient's H&P, except as documented below: Daniel Fischer M.D. May 22, 2017 16:14
--- NOTE | 2017-05-22 16:24 | Pulmonology Progress Note ---
Assessment/Plan Problems: (1) Renal stone (2) COPD (chronic obstructive pulmonary disease) (3) Hydronephrosis Assessment/Plan for stent today pain management symptomatic treatment Subjective ROS Limited/Unobtainable: No Constitutional: Reports: no symptoms HEENT: Repors: no symptoms Allergies: Coded Allergies: No Known Allergies (Unverified , 05/20/17) Objective Last 24 Hour Vital Signs Date Time Temp Pulse Resp B/P (MAP) Pulse Ox O2 Delivery O2 Flow Rate FiO2 05/22/17 15:12 97.4 05/22/17 12:59 97.4 05/22/17 12:00 97.7 60 18 148/88 95 Room Air 05/22/17 11:43 131/84 05/22/17 08:27 68 131/84 05/22/17 08:00 97.4 68 18 131/84 93 Room Air 05/22/17 04:00 98.0 58 18 144/80 93 Room Air 05/22/17 00:00 97.8 54 18 147/81 95 Room Air 05/21/17 20:00 97.3 51 18 128/78 95 Room Air Intake and Output 05/22/17 05/23/17 18:59 06:59 Intake Total 840 ml Output Total 800 ml Balance 40 ml Intake Oral 240 ml IV Total 600 ml Output Urine Total 800 ml General Appearance: WD/WN HEENT: normocephalic Respiratory/Chest: chest wall non-tender, lungs clear Cardiovascular: normal peripheral pulses, normal rate Abdomen: normal bowel sounds, soft, non tender Genitourinary: normal external genitalia Extremities: no cyanosis Skin: no rash, no lesions Microbiology Date/Time Source Procedure Growth Status 05/21/17 06:45 Straight Cath Urine Culture - Preliminary NO GROWTH AFTER 24 HOURS Resulted Laboratory Tests 05/22/17 04:35: White Blood Count 5.1, Red Blood Count 3.74L, Hemoglobin 8.4L, Hematocrit 29.4L , Mean Corpuscular Volume 79L, Mean Corpuscular Hemoglobin 22.6L, Mean Corpuscular Hemoglobin Concent 28.7L, Red Cell Distribution Width 19.6H, Platelet Count 222, Mean Platelet Volume 7.1, Neutrophils (%) (Auto) 69.1, Lymphocytes (%) (Auto) 20.6, Monocytes (%) (Auto) 7.2, Eosinophils (%) (Auto) 1.0, Basophils (%) (Auto) 2.1H, Differential Total Cells Counted 100, Neutrophils % (Manual) 71, Lymphocytes % (Manual) 19L, Monocytes % (Manual) 8, Eosinophils % (Manual) 1, Basophils % (Manual) 1, Band Neutrophils 0, Platelet Estimate Adequate, Platelet Morphology Normal, Hypochromasia 2+, Anisocytosis 2+ , Microcytosis 1+, Erythrocyte Sedimentation Rate 4, Reticulocyte Count 2.7H, Prothrombin Time 11.5, Prothromb Time International Ratio 1.1, Activated Partial Thromboplast Time 30, Sodium Level 140, Potassium Level 3.2L, Chloride Level 107, Carbon Dioxide Level 29, Anion Gap 4L, Blood Urea Nitrogen 13, Creatinine 0.5L, Estimat Glomerular Filtration Rate > 60, Glucose Level 79, Calcium Level 9.5, Iron Level 27L, Total Iron Binding Capacity 273, Percent Iron Saturation 10L, Unsaturated Iron Binding 246, Total Bilirubin 0.4, Aspartate Amino Transf (AST/SGOT) 17, Alanine Aminotransferase (ALT/SGPT) 21, Alkaline Phosphatase 80, Lactate Dehydrogenase 133, Total Protein 5.8L, Albumin 2.3L, Globulin 3.5, Albumin/Globulin Ratio 0.7L, Amylase Level 51, Lipase 81, Vitamin B12 Level 290, Folate 19.0 Current Medications Medications (Trade) Dose Ordered Sig/Katya Route PRN Reason Start Time Stop Time Status Last Admin Dose Admin Acetaminophen (Tylenol) 650 mg Q4H PRN ORAL fever 05/21/17 06:00 06/20/17 05:59 Al Hydroxide/Mg Hydroxide (Mylanta II) 30 ml Q6H PRN ORAL dyspepsia 05/21/17 06:00 06/20/17 05:59 Carvedilol (Coreg) 3.125 mg DAILY ORAL 05/21/17 09:00 06/20/17 08:59 05/22/17 08:27 Ceftriaxone Sodium 1 gm/ Dextrose 55 ml @ 110 mls/hr Q24H IVPB 05/21/17 06:00 05/28/17 05:59 05/22/17 06:30 Dextrose (Dextrose 50%) STAT PRN IV Hypoglycemia 05/21/17 06:00 06/20/17 05:59 Dextrose/Sodium Chloride 1,000 ml @ 75 mls/hr [id number] IV 12/7/17 05:46 06/20/17 05:45 05/21/17 20:12 Diphenhydramine HCl (Benadryl) 25 mg Q6H PRN ORAL Itching/Pruritis 05/21/17 06:00 06/20/17 05:59 Heparin Sodium (Porcine) (Heparin 5000 units/ml) 5,000 units EVERY 12 HOURS SUBQ 05/21/17 09:00 06/20/17 08:59 05/21/17 20:56 Ketorolac Tromethamine (Toradol 30mg) 15 mg Q6HR IV 05/21/17 20:30 05/26/17 20:29 05/22/17 12:29 Lisinopril (Prinivil) 20 mg DAILY ORAL 05/21/17 09:00 06/20/17 08:59 05/22/17 11:43 Morphine Sulfate (Morphine Sulfate) 4 mg Q2H PRN IV For Pain (7-10) 05/21/17 06:00 05/28/17 05:59 05/22/17 14:42 Nitroglycerin (Ntg) 0.4 mg Q5M X 3 DOSES PRN SL Prn Chest Pain 05/21/17 06:00 06/20/17 05:59 Ondansetron HCl (Zofran) 4 mg Q6H PRN IVP Nausea & Vomiting 05/21/17 06:00 06/20/17 05:59 Polyethylene Glycol (Miralax) 17 gm HSPRN PRN ORAL Constipation 05/21/17 06:00 06/20/17 05:59 Tamsulosin HCl (Flomax) 0.4 mg BID ORAL 05/21/17 09:00 06/20/17 08:59 05/22/17 11:42 Temazepam (Restoril) 15 mg HSPRN PRN ORAL Insomnia 05/21/17 06:00 05/28/17 05:59 MAXIMILIANO COOLEY May 22, 2017 16:24
[2017-05-22] MEDS ORDERED: Propofol 200mg/20ml IV ONE (16:34)
[2017-05-22] MEDS ORDERED: Iothalamate Meglumine 60% 30ML INJ ONE (16:35)
[2017-05-22] MEDS ORDERED: fentaNYL 100 mcg/2 mL IV ONE (17:00)
[2017-05-22] MEDS ORDERED: Sterile Water Irrig 1000ml IRRIG ONE (17:00)
[2017-05-22] MEDS ORDERED: LR 1000ml ONE (17:00)
[2017-05-22] MEDS ORDERED: NS Irrig 1000ml ONE (17:00)
[2017-05-22] MEDS ORDERED: Lidocaine 1% MPF 10mg/ml 5ml ONE (17:00)
[2017-05-22] MEDS ORDERED: Midazolam 2mg/2ml Inj ONE (17:00)
[2017-05-22] MEDS ORDERED: NS Irrig 4000ml IRRIG ONE (17:27)
--- NOTE | 2017-05-22 17:54 | Immediate Post-Op Evaluation ---
Immediate Post-Op Evalulation Immediate Post-Op Evalulation Procedure: Cystoscopy, right j-stent placement, retrograde pyelogram Date of Evaluation: May 22, 2017 Time of Evaluation: 17:57 IV Fluids: 500 Blood Products: 0 Estimated Blood Loss: min Urinary Output: 0 Blood Pressure Systolic: 101 Blood Pressure Diastolic: 71 Pulse Rate: 51 Respiratory Rate: 16 O2 Sat by Pulse Oximetry: 100 Temperature (Fahrenheit): 99.2 Pain Score (1-10): 0 Nausea: No Vomiting: No Complications 0 Patient Status: awake, reacts, patent, none Hydration Status: adequate Drug: Ancef 1g Given Within 1 Hr of Incision: Yes Time Given: 17:15 ONEYDA SMITH M.D. May 22, 2017 17:54
[2017-05-22] MEDS ORDERED: DiphenhydrAMINE 50mg/ml Inj IVP PRN (18:00)
[2017-05-22] MEDS ORDERED: fentaNYL 100 mcg/2 mL IV PRN (18:00)
[2017-05-22] MEDS ORDERED: Hydromorphone 0.5mg/0.5ml inj IVP PRN (18:00)
[2017-05-22] MEDS ORDERED: LR 1000ml 1,000 ML IVLG SCH (18:15)
[2017-05-23] VITALS (7 sets, daily range): BP systolic 110–150; BP diastolic 60–89
[2017-05-23] MEDS: Ketorolac 30mg Inj IV SCH ×4 (00:30→18:05)
[2017-05-23] MEDS: Morphine Sulfate 4mg/ml Inj IV PRN ×5 (00:30→17:02)
--- NOTE | 2017-05-23 02:00 | Operative Note - Dictated ---
DATE OF OPERATION: 05/22/2017 PREOPERATIVE DIAGNOSIS: Right ureteral stone with hydronephrosis secondary to the same. POSTOPERATIVE DIAGNOSIS: Right ureteral stone with hydronephrosis secondary to the same. PROCEDURE PERFORMED: Cystoscopy with right double-J stent placement and fluoroscopy. SURGEON: Daniel Fischer M.D. ANESTHESIA: General/LMA. ANESTHESIOLOGIST: Dr. Marcano, attending. ESTIMATED BLOOD LOSS: None. IV FLUIDS: IV crystalloid only. DRAINS: Tubes and catheters 6-[place]ayan x 26 cm double-J stent left indwelling. SPECIMENS: None. COMPLICATIONS: None. OPERATIVE INDICATION: The patient is a 62-year-old gentleman with a history of long-standing kidney stones. He presented to the hospital with right renal colic. Workup with ultrasound and CT scan revealed a right UPJ stone with hydronephrosis and colic secondary to the same. The stone was 1.5 cm in size. The patient was counseled. He elected to undergo the procedure described above. It was made very clear to the patient that the stent is a temporary measure to relieve his pain and that he would eventually need outpatient follow up with a planned contracted urologist to both treat his stones and remove the stent. He understood and verbalized acceptance of this plan and agreed to follow up as an outpatient with a planned contracted urologist for removal of the stent within six months and treatment of his stone. He was scheduled for the procedure at [facility] on 05/22/2017. OPERATIVE NOTE IN DETAIL: The patient was brought to the operating room and placed on table in supine position. General anesthesia was induced. Once the patient had his LMA placed, he was repositioned in dorsal lithotomy and draped and prepped in the usual sterile fashion. Using the 23-Uruguayan cystoscope, the patient's urethral meatus was calibrated. The scope was passed along the length of the urethra. The urethra and prostate were within normal limits. The bladder was then entered and inspected. There was no evidence of masses, tumors, or stones and both ureteral orifices were identified. Attention was turned to the right ureteral orifice into which a 0.035 Glidewire was cannulated. The wire curled nicely in the kidney and was used to pass a 6-[place] x 26 cm double-J stent into the right renal collecting system with a good curl noted fluoroscopically within the kidney and cystoscopically within the bladder. Once the stent was in place, the bladder was evacuated through the scope and the scope was removed. The patient was taken out of the dorsal lithotomy and placed back in supine position. He was cleaned, dried, and dressed. He was awakened and extubated in the operating room without difficulty and transported to recovery in stable condition. I was present and scrubbed for the entire duration of this case. All needle, sponge, and instrument counts were reported correct. Daniel Fischer M.D. DR: [place] JOB#: [id number] CC:
[2017-05-23] MEDS: cefTRIAXone 1 GM in D5W 55 ML IVPB SCH (06:22)
[2017-05-23] MEDS: Lisinopril 20mg tab ORAL SCH (09:00)
[2017-05-23] MEDS: Tamsulosin 0.4mg cap ORAL SCH ×2 (09:14→18:05)
[2017-05-23] MEDS: Heparin 5000 units/ml inj SUBQ SCH ×2 (09:24→22:01)
[2017-05-23] MEDS: D5 1/2NS 1,000 ML IV SCH ×2 (11:06→18:06)
[2017-05-23] MEDS ORDERED: Tubing IV Secondary IV ONE (14:52)
--- NOTE | 2017-05-23 16:58 | Pulmonology Progress Note ---
Assessment/Plan Problems: (1) Renal stone (2) COPD (chronic obstructive pulmonary disease) (3) Hydronephrosis (4) Lung mass Assessment/Plan doing better ct guided lung biopsy pain management symptomatic treatment Subjective ROS Limited/Unobtainable: No - tolera Interval Events: tolerated surgery very well Allergies: Coded Allergies: No Known Allergies (Unverified , 05/20/17) Objective Last 24 Hour Vital Signs Date Time Temp Pulse Resp B/P (MAP) Pulse Ox O2 Delivery O2 Flow Rate FiO2 05/23/17 12:00 97.6 54 18 114/70 96 Nasal Cannula 2.0 05/23/17 09:06 97.7 58 18 111/60 98 Nasal Cannula 2.0 05/23/17 09:00 111/60 05/23/17 09:00 58 111/60 05/23/17 08:46 Nasal Cannula 2.0 28 05/23/17 08:46 95 Nasal Cannula 2.0 28 05/23/17 08:00 97.7 61 18 110/60 98 Nasal Cannula 2.0 05/23/17 06:52 97.6 05/23/17 06:52 97.6 05/23/17 04:00 97.6 65 18 150/89 94 Nasal Cannula 2.0 05/23/17 00:00 97.7 67 20 127/82 95 Room Air 05/22/17 20:09 Nasal Cannula 2.0 28 05/22/17 20:09 94 Nasal Cannula 2.0 28 05/22/17 20:00 98.0 56 20 124/79 95 Nasal Cannula 2.0 05/22/17 18:58 97.2 59 20 132/81 93 Nasal Cannula 2.0 05/22/17 18:52 98.7 05/22/17 18:35 98.7 49 15 136/87 100 Nasal Cannula 3.0 05/22/17 18:25 48 13 146/83 100 Nasal Cannula 3.0 05/22/17 18:15 46 16 125/75 100 Nasal Cannula 3.0 05/22/17 18:10 47 15 122/83 100 Nasal Cannula 3.0 05/22/17 18:00 51 14 109/73 100 Nasal Cannula 3.0 05/22/17 17:55 56 17 109/70 100 Simple Mask 6.0 05/22/17 17:54 51 16 100 05/22/17 17:52 99.4 53 16 101/71 100 Simple Mask 6.0 General Appearance: WD/WN HEENT: normocephalic, atraumatic, PERRL Respiratory/Chest: lungs clear Cardiovascular: normal peripheral pulses, normal rate, regular rhythm Abdomen: soft, non tender Genitourinary: normal external genitalia Extremities: no cyanosis Neurologic/Psychiatric: no motor/sensory deficits Microbiology Date/Time Source Procedure Growth Status 05/21/17 06:45 Straight Cath Urine Culture - Final NO GROWTH AFTER 48 HOURS Complete Current Medications Medications (Trade) Dose Ordered Sig/Katya Route PRN Reason Start Time Stop Time Status Last Admin Dose Admin Acetaminophen (Tylenol) 650 mg Q4H PRN ORAL fever 05/21/17 06:00 06/20/17 05:59 Al Hydroxide/Mg Hydroxide (Mylanta II) 30 ml Q6H PRN ORAL dyspepsia 05/21/17 06:00 06/20/17 05:59 Carvedilol (Coreg) 3.125 mg DAILY ORAL 05/21/17 09:00 06/20/17 08:59 05/22/17 08:27 Ceftriaxone Sodium 1 gm/ Dextrose 55 ml @ 110 mls/hr Q24H IVPB 05/21/17 06:00 05/28/17 05:59 05/23/17 06:22 Dextrose (Dextrose 50%) STAT PRN IV Hypoglycemia 05/21/17 06:00 06/20/17 05:59 Dextrose/Sodium Chloride 1,000 ml @ 75 mls/hr [id number] IV 05/21/17 05:46 06/20/17 05:45 05/22/17 22:06 Diphenhydramine HCl (Benadryl) 25 mg Q6H PRN ORAL Itching/Pruritis 05/21/17 06:00 06/20/17 05:59 Heparin Sodium (Porcine) (Heparin 5000 units/ml) 5,000 units EVERY 12 HOURS SUBQ 05/21/17 09:00 06/20/17 08:59 05/23/17 09:24 Ketorolac Tromethamine (Toradol 30mg) 15 mg Q6HR IV 05/21/17 20:30 05/26/17 20:29 05/23/17 12:19 Lisinopril (Prinivil) 20 mg DAILY ORAL 05/21/17 09:00 06/20/17 08:59 05/22/17 11:43 Morphine Sulfate (Morphine Sulfate) 4 mg Q2H PRN IV For Pain (7-10) 05/21/17 06:00 05/28/17 05:59 05/23/17 12:19 Nitroglycerin (Ntg) 0.4 mg Q5M X 3 DOSES PRN SL Prn Chest Pain 05/21/17 06:00 06/20/17 05:59 Ondansetron HCl (Zofran) 4 mg Q6H PRN IVP Nausea & Vomiting 05/21/17 06:00 06/20/17 05:59 Polyethylene Glycol (Miralax) 17 gm HSPRN PRN ORAL Constipation 05/21/17 06:00 06/20/17 05:59 Tamsulosin HCl (Flomax) 0.4 mg BID ORAL 05/21/17 09:00 06/20/17 08:59 05/23/17 09:14 Temazepam (Restoril) 15 mg HSPRN PRN ORAL Insomnia 05/21/17 06:00 05/28/17 05:59 MAXIMILIANO COOLEY May 23, 2017 16:58
[2017-05-24] MEDS: Ketorolac 30mg Inj IV SCH ×4 (00:09→17:52)
[2017-05-24 00:32] VITALS: BP 140/84
[2017-05-24] MEDS: Morphine Sulfate 4mg/ml Inj IV PRN ×5 (04:03→20:09)
[2017-05-24 04:40] VITALS: BP 137/82
[2017-05-24] MEDS: cefTRIAXone 1 GM in D5W 55 ML IVPB SCH (06:24)
[2017-05-24] MEDS: D5 1/2NS 1,000 ML IV SCH ×2 (06:57→13:43)
[2017-05-24 08:13] VITALS: BP 125/79
[2017-05-24] MEDS: Tamsulosin 0.4mg cap ORAL SCH ×2 (08:36→17:52)
[2017-05-24] MEDS: Lisinopril 20mg tab ORAL SCH (08:36)
[2017-05-24] MEDS: Heparin 5000 units/ml inj SUBQ SCH ×2 (08:37→20:09)
[2017-05-24] MEDS ORDERED: D5 1/2NS 1000ml IV ONE (10:03)
[2017-05-24 11:13] LABS: EOSINOPHILS % (AUTO) 1.4 % (0.0-3.0); LYMPHOCYTES % (AUTO) 13.2 % (20.0-45.0); MEAN CORPUSCULAR HEMOGLOBIN 22.6 PG (27.0-31.0); MEAN CORPUSCULAR HGB CONC 28.6 G/DL (32.0-36.0); MEAN CORPUSCULAR VOLUME 79 FL (80-99); MEAN PLATELET VOLUME 7.3 FL (6.5-10.1); MONOCYTES % (AUTO) 6.1 % (1.0-10.0); NEUTROPHILS % (AUTO) 78.4 % (45.0-75.0); PLATELET COUNT 227 K/UL (150-450); RED BLOOD COUNT 3.68 M/UL (4.70-6.10); WHITE BLOOD COUNT 7.3 K/UL (4.8-10.8)
[2017-05-24 11:56] VITALS: BP 127/78
[2017-05-24 15:43] VITALS: BP 128/82
--- NOTE | 2017-05-24 17:32 | Pulmonology Progress Note ---
Assessment/Plan Problems: (1) Renal stone (2) COPD (chronic obstructive pulmonary disease) (3) Hydronephrosis (4) Lung mass Assessment/Plan doing better ct guided lung biopsy in am pain management symptomatic treatment Subjective ROS Limited/Unobtainable: No Constitutional: Reports: no symptoms HEENT: Repors: no symptoms Allergies: Coded Allergies: No Known Allergies (Unverified , 05/20/17) Objective Last 24 Hour Vital Signs Date Time Temp Pulse Resp B/P (MAP) Pulse Ox O2 Delivery O2 Flow Rate FiO2 05/24/17 15:43 98.9 74 20 128/82 93 05/24/17 11:56 98.3 65 19 127/78 96 05/24/17 08:36 125/79 05/24/17 08:36 72 125/79 05/24/17 08:13 98.3 72 20 125/79 93 05/24/17 07:41 Nasal Cannula 2.0 28 05/24/17 07:40 96 Nasal Cannula 2.0 28 05/24/17 04:41 Room Air 05/24/17 04:40 98.2 62 18 137/82 91 05/24/17 00:33 Nasal Cannula 2.0 05/24/17 00:32 98.1 60 19 140/84 96 05/23/17 20:32 Nasal Cannula 2.0 05/23/17 20:31 99.2 59 18 124/66 96 05/23/17 20:07 Nasal Cannula 2.0 28 05/23/17 20:07 95 Nasal Cannula 2.0 28 Intake and Output 05/24/17 05/25/17 19:00 07:00 Intake Total 970 ml Balance 970 ml Intake Oral 670 ml IV Total 300 ml Objective General Appearance: WD/WN Lines, tubes and drains: peripheral, HEENT: normocephalic, atraumatic Neck: non-tender, normal alignment Respiratory/Chest: chest wall non-tender, lungs clear, normal breath sounds Breasts: no masses Cardiovascular/Chest: normal rate Abdomen: normal bowel sounds Extremities: normal range of motion Laboratory Tests 05/24/17 10:10: White Blood Count 7.3, Red Blood Count 3.68L, Hemoglobin 8.3L, Hematocrit 29.1L , Mean Corpuscular Volume 79L, Mean Corpuscular Hemoglobin 22.6L, Mean Corpuscular Hemoglobin Concent 28.6L, Red Cell Distribution Width 20.0H, Platelet Count 227, Mean Platelet Volume 7.3, Neutrophils (%) (Auto) 78.4H, Lymphocytes (%) (Auto) 13.2L, Monocytes (%) (Auto) 6.1, Eosinophils (%) (Auto) 1.4, Basophils (%) (Auto) 1.0 Current Medications Medications (Trade) Dose Ordered Sig/Katya Route PRN Reason Start Time Stop Time Status Last Admin Dose Admin Acetaminophen (Tylenol) 650 mg Q4H PRN ORAL fever 05/21/17 06:00 06/20/17 05:59 Al Hydroxide/Mg Hydroxide (Mylanta II) 30 ml Q6H PRN ORAL dyspepsia 05/21/17 06:00 06/20/17 05:59 Carvedilol (Coreg) 3.125 mg DAILY ORAL 05/21/17 09:00 06/20/17 08:59 05/24/17 08:36 Ceftriaxone Sodium 1 gm/ Dextrose 55 ml @ 110 mls/hr Q24H IVPB 05/21/17 06:00 05/28/17 05:59 05/24/17 06:24 Dextrose (Dextrose 50%) STAT PRN IV Hypoglycemia 05/21/17 06:00 06/20/17 05:59 Dextrose/Sodium Chloride 1,000 ml @ 75 mls/hr [id number] IV 05/21/17 05:46 06/20/17 05:45 05/24/17 13:43 Diphenhydramine HCl (Benadryl) 25 mg Q6H PRN ORAL Itching/Pruritis 05/21/17 06:00 06/20/17 05:59 Heparin Sodium (Porcine) (Heparin 5000 units/ml) 5,000 units EVERY 12 HOURS SUBQ 05/21/17 09:00 06/20/17 08:59 05/24/17 08:37 Ketorolac Tromethamine (Toradol 30mg) 15 mg Q6HR IV 05/21/17 20:30 05/26/17 20:29 05/24/17 12:04 Lisinopril (Prinivil) 20 mg DAILY ORAL 05/21/17 09:00 06/20/17 08:59 05/24/17 08:36 Morphine Sulfate (Morphine Sulfate) 4 mg Q2H PRN IV For Pain (7-10) 05/21/17 06:00 05/28/17 05:59 05/24/17 15:52 Nitroglycerin (Ntg) 0.4 mg Q5M X 3 DOSES PRN SL Prn Chest Pain 05/21/17 06:00 06/20/17 05:59 Ondansetron HCl (Zofran) 4 mg Q6H PRN IVP Nausea & Vomiting 05/21/17 06:00 06/20/17 05:59 Polyethylene Glycol (Miralax) 17 gm HSPRN PRN ORAL Constipation 05/21/17 06:00 06/20/17 05:59 Tamsulosin HCl (Flomax) 0.4 mg BID ORAL 05/21/17 09:00 06/20/17 08:59 05/24/17 08:36 Temazepam (Restoril) 15 mg HSPRN PRN ORAL Insomnia 05/21/17 06:00 05/28/17 05:59 MAXIMILIANO COOLEY May 24, 2017 17:32
[2017-05-24 20:00] VITALS: BP 156/90
[2017-05-24] MEDS: Norco 10mg/325mg tab ORAL PRN (21:45)
[2017-05-25] VITALS (9 sets, daily range): BP systolic 113–175; BP diastolic 73–116
[2017-05-25] MEDS: Morphine Sulfate 4mg/ml Inj IV PRN ×3 (00:13→09:17)
[2017-05-25] MEDS: Ketorolac 30mg Inj IV SCH ×4 (00:13→17:37)
[2017-05-25] MEDS: Norco 10mg/325mg tab ORAL PRN (04:52)
[2017-05-25] MEDS: D5 1/2NS 1,000 ML IV SCH ×3 (05:00→18:39)
[2017-05-25] MEDS: cefTRIAXone 1 GM in D5W 55 ML IVPB SCH (05:58)
[2017-05-25 06:35] LABS: INR 1.1 (0.9-1.1); PROTHROMBIN TIME 11.1 SEC (9.30-11.50)
[2017-05-25 06:47] LABS: MEAN CORPUSCULAR HEMOGLOBIN 23.3 PG (27.0-31.0); MEAN CORPUSCULAR HGB CONC 29.3 G/DL (32.0-36.0); MEAN CORPUSCULAR VOLUME 80 FL (80-99); MEAN PLATELET VOLUME 6.8 FL (6.5-10.1); PLATELET COUNT 169 K/UL (150-450); RED CELL DISTRIBUTION WIDTH 20.5 % (11.6-14.8); WHITE BLOOD COUNT 5.2 K/UL (4.8-10.8)
[2017-05-25 06:52] LABS: ALANINE AMINOTRANSFERASE 16 U/L (12-78); ALBUMIN/GLOBULIN RATIO 0.7 (1.0-2.7); ANION GAP 2 mmol/L (5-15); ASPARTATE AMINO TRANSFERASE 11 U/L (15-37); CALCIUM 9.5 MG/DL (8.5-10.1); CARBON DIOXIDE 32 MMOL/L (21-32); CHLORIDE 106 MMOL/L (98-107); CREATININE 0.5 MG/DL (0.55-1.30); GLOMERULAR FILTRATION RATE > 60 mL/min (>60); MAGNESIUM 1.8 MG/DL (1.8-2.4); PHOSPHORUS 2.6 MG/DL (2.5-4.9); POTASSIUM 4.3 MMOL/L (3.5-5.1); SODIUM 140 MMOL/L (136-145); TOTAL PROTEIN 5.7 G/DL (6.4-8.2)
--- NOTE | 2017-05-25 08:22 | Consultation ---
History of Present Illness General Date patient seen: May 25, 2017 Chief Complaint: Abdominal Pain Present Illness Allergies: Coded Allergies: No Known Allergies (Unverified , 05/20/17) Medication History Scheduled Albuterol Sulfate (Ventolin Hfa), 2 PUFFS INH EVERY 4 HOURS, (Reported) Budesonide/Formoterol Fumarate (Symbicort 160-4.5 Mcg Inhaler), Unknown Dose INH TWICE A DAY, (Reported) Carvedilol* (Carvedilol*), Unknown Dose ORAL DAILY, (Reported) Cholecalciferol (Vitamin D3)* (Vitamin D*), Unknown Dose ORAL DAILY, (Reported) Clopidogrel Bisulfate* (Plavix*), 75 MG ORAL DAILY, (Reported) Lisinopril (Lisinopril*), Unknown Dose ORAL DAILY, (Reported) Tamsulosin Hcl (Tamsulosin Hcl*), 0.4 MG ORAL BID, (Reported) Tiotropium [place]* (Spiriva*), 1 PUFF INH DAILY, (Reported) Patient History Healthcare decision maker Resuscitation status Full Code Advanced Directive on File Physical Exam Last 24 Hour Vital Signs Date Time Temp Pulse Resp B/P (MAP) Pulse Ox O2 Delivery O2 Flow Rate FiO2 05/25/17 04:01 Nasal Cannula 2.0 05/25/17 04:00 98.1 61 18 140/83 97 05/25/17 00:01 Nasal Cannula 2.0 05/25/17 00:00 97.9 61 17 113/73 98 05/24/17 20:01 Nasal Cannula 2.0 05/24/17 20:00 97.3 73 19 156/90 96 05/24/17 19:51 97 Nasal Cannula 2.0 28 05/24/17 19:51 Nasal Cannula 2.0 28 05/24/17 15:43 98.9 74 20 128/82 93 05/24/17 11:56 98.3 65 19 127/78 96 05/24/17 08:36 125/79 05/24/17 08:36 72 125/79 Laboratory Tests Test 05/24/17 10:10 05/25/17 04:40 White Blood Count 7.3 K/UL (4.8-10.8) 5.2 K/UL (4.8-10.8) Red Blood Count 3.68 M/UL (4.70-6.10) L 3.40 M/UL (4.70-6.10) L Hemoglobin 8.3 G/DL (14.2-18.0) L 7.9 G/DL (14.2-18.0) L Hematocrit 29.1 % (42.0-52.0) L 27.0 % (42.0-52.0) L Mean Corpuscular Volume 79 FL (80-99) L 80 FL (80-99) Mean Corpuscular Hemoglobin 22.6 PG (27.0-31.0) L 23.3 PG (27.0-31.0) L Mean Corpuscular Hemoglobin Concent 28.6 G/DL (32.0-36.0) L 29.3 G/DL (32.0-36.0) L Red Cell Distribution Width 20.0 % (11.6-14.8) H 20.5 % (11.6-14.8) H Platelet Count 227 K/UL (150-450) 169 K/UL (150-450) Mean Platelet Volume 7.3 FL (6.5-10.1) 6.8 FL (6.5-10.1) Neutrophils (%) (Auto) 78.4 % (45.0-75.0) H % (45.0-75.0) Lymphocytes (%) (Auto) 13.2 % (20.0-45.0) L % (20.0-45.0) Monocytes (%) (Auto) 6.1 % (1.0-10.0) % (1.0-10.0) Eosinophils (%) (Auto) 1.4 % (0.0-3.0) % (0.0-3.0) Basophils (%) (Auto) 1.0 % (0.0-2.0) % (0.0-2.0) Neutrophils % (Manual) Pending Lymphocytes % (Manual) Pending Platelet Estimate Pending Platelet Morphology Pending Prothrombin Time 11.1 SEC (9.30-11.50) Prothromb Time International Ratio 1.1 (0.9-1.1) Activated Partial Thromboplast Time 31 SEC (23-33) Sodium Level 140 MMOL/L (136-145) Potassium Level 4.3 MMOL/L (3.5-5.1) Chloride Level 106 MMOL/L (98-107) Carbon Dioxide Level 32 MMOL/L (21-32) Anion Gap 2 mmol/L (5-15) L Blood Urea Nitrogen 11 mg/dL (7-18) Creatinine 0.5 MG/DL (0.55-1.30) L Estimat Glomerular Filtration Rate > 60 mL/min (>60) Glucose Level 90 MG/DL (74-106) Calcium Level 9.5 MG/DL (8.5-10.1) Phosphorus Level 2.6 MG/DL (2.5-4.9) Magnesium Level 1.8 MG/DL (1.8-2.4) Total Bilirubin 0.2 MG/DL (0.2-1.0) Aspartate Amino Transf (AST/SGOT) 11 U/L (15-37) L Alanine Aminotransferase (ALT/SGPT) 16 U/L (12-78) Alkaline Phosphatase 82 U/L (46-116) Total Protein 5.7 G/DL (6.4-8.2) L Albumin 2.3 G/DL (3.4-5.0) L Globulin 3.4 g/dL Albumin/Globulin Ratio 0.7 (1.0-2.7) L Height (Feet): 5 Height (Inches): 9.00 Weight (Pounds): 130 Medications Current Medications Medications (Trade) Dose Ordered Sig/Katya Route PRN Reason Start Time Stop Time Status Last Admin Dose Admin Acetaminophen (Tylenol) 650 mg Q4H PRN ORAL fever 05/21/17 06:00 06/20/17 05:59 Acetaminophen/ Hydrocodone Bitart ([place] 10/325) 1 ea Q6H PRN ORAL Pain Scale (6-10) 05/24/17 21:30 05/31/17 21:29 05/25/17 04:52 Al Hydroxide/Mg Hydroxide (Mylanta II) 30 ml Q6H PRN ORAL dyspepsia 05/21/17 06:00 06/20/17 05:59 Carvedilol (Coreg) 3.125 mg DAILY ORAL 05/21/17 09:00 06/20/17 08:59 05/24/17 08:36 Ceftriaxone Sodium 1 gm/ Dextrose 55 ml @ 110 mls/hr Q24H IVPB 05/21/17 06:00 05/28/17 05:59 05/25/17 05:58 Dextrose (Dextrose 50%) STAT PRN IV Hypoglycemia 05/21/17 06:00 06/20/17 05:59 Dextrose/Sodium Chloride 1,000 ml @ 75 mls/hr [id number] IV 05/21/17 05:46 06/20/17 05:45 05/25/17 05:00 Diphenhydramine HCl (Benadryl) 25 mg Q6H PRN ORAL Itching/Pruritis 05/21/17 06:00 06/20/17 05:59 Heparin Sodium (Porcine) (Heparin 5000 units/ml) 5,000 units EVERY 12 HOURS SUBQ 05/21/17 09:00 06/20/17 08:59 05/24/17 20:09 Ketorolac Tromethamine (Toradol 30mg) 15 mg Q6HR IV 05/21/17 20:30 05/26/17 20:29 05/25/17 06:52 Lisinopril (Prinivil) 20 mg DAILY ORAL 05/21/17 09:00 06/20/17 08:59 05/24/17 08:36 Morphine Sulfate (Morphine Sulfate) 4 mg Q2H PRN IV Severe Breakthru Pain (>7) 05/24/17 22:00 05/31/17 21:59 05/25/17 05:58 Nitroglycerin (Ntg) 0.4 mg Q5M X 3 DOSES PRN SL Prn Chest Pain 05/21/17 06:00 06/20/17 05:59 Ondansetron HCl (Zofran) 4 mg Q6H PRN IVP Nausea & Vomiting 05/21/17 06:00 06/20/17 05:59 Polyethylene Glycol (Miralax) 17 gm HSPRN PRN ORAL Constipation 05/21/17 06:00 06/20/17 05:59 Tamsulosin HCl (Flomax) 0.4 mg BID ORAL 05/21/17 09:00 06/20/17 08:59 05/24/17 17:52 Temazepam (Restoril) 15 mg HSPRN PRN ORAL Insomnia 05/21/17 06:00 05/28/17 05:59 Assessment/Plan Assessment/Plan (1) Intractable pain (2) Lung mass (3) Multiple joint pain (4) Multiple joint OA seen dictated BLANCA ROSS May 25, 2017 08:22
[2017-05-25 08:36] LABS: ANISOCYTOSIS 2+; BAND NEUTROPHILS % (MANUAL) 0 % (0-8); BASOPHILS % (MANUAL) 0 % (0-2); EOSINOPHILS % (MANUAL) 0 % (0-3); HYPOCHROMASIA 1+; LYMPHOCYTES % (MANUAL) 24 % (20-45); MICROCYTES 1+; NEUTROPHILS % (MANUAL) 68 % (45-75); PLATELET ESTIMATE ADEQUATE; PLATELET MORPHOLOGY NORMAL; TOTAL CELLS COUNTED 100
[2017-05-25] MEDS: Heparin 5000 units/ml inj SUBQ SCH ×2 (09:00→21:00)
[2017-05-25] MEDS: Tamsulosin 0.4mg cap ORAL SCH ×2 (09:17→17:36)
[2017-05-25] MEDS: Lisinopril 20mg tab ORAL SCH (09:17)
--- NOTE | 2017-05-25 11:46 | Pre-Procedure Note/Attestation ---
Pre-Procedure Note/Attestation Complete Prior to Procedure Planned Procedure: right Procedure Narrative: CT guided lung biopsy Indications for Procedure Pre-Operative Diagnosis: R lung mass Attestation I attest that I discussed the nature of the procedure; its benefits; risks and complications; and alternatives (and the risks and benefits of such alternatives ), prior to the procedure, with the patient (or the patient's legal hobbies and crafts sales representative). I attest that, if there was a reasonable possibility of needing a blood transfusion, the patient (or the patient's legal hobbies and crafts sales representative) was given the [facility] standardized written summary, pursuant to the William Derek Blood Safety Act ([place] Health and Safety Code # 1645, as amended). I attest that I re-evaluated the patient just prior to the surgery and that there has been no change in the patient's H&P, except as documented below: THAI COLEMAN M.D. May 25, 2017 11:46
[2017-05-25] MEDS ORDERED: Lidocaine 1% Plain 30 ml INJ SCH (12:15)
--- NOTE | 2017-05-25 12:56 | Pre-Procedure Note/Attestation ---
Pre-Procedure Note/Attestation Complete Prior to Procedure Planned Procedure: right Procedure Narrative: Chest vent placement for pneumothorax Indications for Procedure Pre-Operative Diagnosis: R lung mass Attestation I attest that I discussed the nature of the procedure; its benefits; risks and complications; and alternatives (and the risks and benefits of such alternatives ), prior to the procedure, with the patient (or the patient's legal product support sales representative). I attest that, if there was a reasonable possibility of needing a blood transfusion, the patient (or the patient's legal product support sales representative) was given the [facility] standardized written summary, pursuant to the William Derek Blood Safety Act ([place] Health and Safety Code # 1645, as amended). I attest that I re-evaluated the patient just prior to the surgery and that there has been no change in the patient's H&P, except as documented below: THAI COLEMAN M.D. May 25, 2017 12:56
--- NOTE | 2017-05-25 15:20 | Pulmonology Progress Note ---
Assessment/Plan Problems: (1) Renal stone (2) COPD (chronic obstructive pulmonary disease) (3) Hydronephrosis (4) Lung mass Assessment/Plan doing better ct in place Dr. Ceron informed about pain management symptomatic treatment Subjective ROS Limited/Unobtainable: No Interval Events: radiology attempted ct guided lung biopsy, but pt developed pneumothorax. Constitutional: Reports: no symptoms HEENT: Repors: no symptoms Allergies: Coded Allergies: No Known Allergies (Unverified , 05/20/17) Objective Last 24 Hour Vital Signs Date Time Temp Pulse Resp B/P (MAP) Pulse Ox O2 Delivery O2 Flow Rate FiO2 05/25/17 13:15 75 32 123/88 98 Simple Mask 6.0 05/25/17 13:10 75 32 137/92 96 Simple Mask 8.0 05/25/17 13:05 95 32 8.0 05/25/17 13:05 95 32 167/116 94 Simple Mask 8.0 05/25/17 12:00 97.7 62 17 125/79 98 05/25/17 09:45 98.1 05/25/17 09:17 140/83 05/25/17 09:16 61 140/83 05/25/17 08:00 97.0 65 16 126/76 96 05/25/17 07:30 Nasal Cannula 2.0 28 05/25/17 07:30 95 Nasal Cannula 2.0 28 05/25/17 07:20 98.1 05/25/17 04:01 Nasal Cannula 2.0 05/25/17 04:00 98.1 61 18 140/83 97 05/25/17 00:01 Nasal Cannula 2.0 05/25/17 00:00 97.9 61 17 113/73 98 05/24/17 20:01 Nasal Cannula 2.0 05/24/17 20:00 97.3 73 19 156/90 96 05/24/17 19:51 97 Nasal Cannula 2.0 28 05/24/17 19:51 Nasal Cannula 2.0 28 05/24/17 15:43 98.9 74 20 128/82 93 Intake and Output 05/25/17 05/26/17 19:00 07:00 Intake Total 500 ml Output Total 700 ml Balance -200 ml Intake Oral 500 ml Output Urine Total 700 ml # Voids 1 Objective General Appearance: WD/WN Lines, tubes and drains: peripheral, HEENT: normocephalic, atraumatic Neck: non-tender, normal alignment Respiratory/Chest: chest wall non-tender, lungs clear, normal breath sounds Breasts: no masses Cardiovascular/Chest: normal rate Abdomen: normal bowel sounds Extremities: normal range of motion Laboratory Tests 05/25/17 04:40: White Blood Count 5.2, Red Blood Count 3.40L, Hemoglobin 7.9L, Hematocrit 27.0L , Mean Corpuscular Volume 80, Mean Corpuscular Hemoglobin 23.3L, Mean Corpuscular Hemoglobin Concent 29.3L, Red Cell Distribution Width 20.5H, Platelet Count 169, Mean Platelet Volume 6.8, Neutrophils (%) (Auto) , Lymphocytes (%) (Auto) , Monocytes (%) (Auto) , Eosinophils (%) (Auto) , Basophils (%) (Auto) , Differential Total Cells Counted 100, Neutrophils % ( Manual) 68, Lymphocytes % (Manual) 24, Monocytes % (Manual) 8, Eosinophils % ( Manual) 0, Basophils % (Manual) 0, Band Neutrophils 0, Platelet Estimate Adequate, Platelet Morphology Normal, Hypochromasia 1+, Anisocytosis 2+, Microcytosis 1+, Prothrombin Time 11.1, Prothromb Time International Ratio 1.1, Activated Partial Thromboplast Time 31, Sodium Level 140, Potassium Level 4.3, Chloride Level 106, Carbon Dioxide Level 32, Anion Gap 2L, Blood Urea Nitrogen 11, Creatinine 0.5L, Estimat Glomerular Filtration Rate > 60, Glucose Level 90, Calcium Level 9.5, Phosphorus Level 2.6, Magnesium Level 1.8, Total Bilirubin 0.2, Aspartate Amino Transf (AST/SGOT) 11L, Alanine Aminotransferase (ALT/SGPT) 16, Alkaline Phosphatase 82, Total Protein 5.7L, Albumin 2.3L, Globulin 3.4, Albumin/Globulin Ratio 0.7L Current Medications Medications (Trade) Dose Ordered Sig/Katya Route PRN Reason Start Time Stop Time Status Last Admin Dose Admin Acetaminophen (Tylenol) 650 mg Q4H PRN ORAL fever 05/21/17 06:00 06/20/17 05:59 Acetaminophen/ Hydrocodone Bitart ([place] 10/325) 1 ea Q6H PRN ORAL Pain Scale (6-10) 05/24/17 21:30 05/31/17 21:29 05/25/17 04:52 Al Hydroxide/Mg Hydroxide (Mylanta II) 30 ml Q6H PRN ORAL dyspepsia 05/21/17 06:00 06/20/17 05:59 Carvedilol (Coreg) 3.125 mg DAILY ORAL 05/21/17 09:00 06/20/17 08:59 05/25/17 09:16 Ceftriaxone Sodium 1 gm/ Dextrose 55 ml @ 110 mls/hr Q24H IVPB 05/21/17 06:00 05/28/17 05:59 05/25/17 05:58 Dextrose (Dextrose 50%) STAT PRN IV Hypoglycemia 05/21/17 06:00 06/20/17 05:59 Dextrose/Sodium Chloride 1,000 ml @ 75 mls/hr [id number] IV 05/21/17 05:46 06/20/17 05:45 05/25/17 05:00 Diphenhydramine HCl (Benadryl) 25 mg Q6H PRN ORAL Itching/Pruritis 05/21/17 06:00 06/20/17 05:59 Gabapentin (Neurontin) 300 mg THREE TIMES A DAY ORAL 05/25/17 09:00 06/24/17 08:59 05/25/17 13:43 Heparin Sodium (Porcine) (Heparin 5000 units/ml) 5,000 units EVERY 12 HOURS SUBQ 05/21/17 09:00 06/20/17 08:59 05/24/17 20:09 Ketorolac Tromethamine (Toradol 30mg) 15 mg Q6HR IV 05/21/17 20:30 05/26/17 20:29 05/25/17 13:43 Lisinopril (Prinivil) 20 mg DAILY ORAL 05/21/17 09:00 06/20/17 08:59 05/25/17 09:17 Morphine Sulfate (Morphine Sulfate) 6 mg Q2H PRN IV Severe Breakthru Pain (>7) 05/25/17 16:00 06/01/17 15:59 Nitroglycerin (Ntg) 0.4 mg Q5M X 3 DOSES PRN SL Prn Chest Pain 05/21/17 06:00 06/20/17 05:59 Ondansetron HCl (Zofran) 4 mg Q6H PRN IVP Nausea & Vomiting 05/21/17 06:00 06/20/17 05:59 Polyethylene Glycol (Miralax) 17 gm HSPRN PRN ORAL Constipation 05/21/17 06:00 06/20/17 05:59 Tamsulosin HCl (Flomax) 0.4 mg BID ORAL 05/21/17 09:00 06/20/17 08:59 05/25/17 09:17 Temazepam (Restoril) 15 mg HSPRN PRN ORAL Insomnia 05/21/17 06:00 05/28/17 05:59 MAXIMILIANO COOLEY May 25, 2017 15:20
[2017-05-25] MEDS ORDERED: Morphine Sulfate 4mg/ml Inj IV PRN ×2 (16:00→17:30)
--- NOTE | 2017-05-25 16:13 | Diagnostic Imaging Report ---
Indication: Pneumothorax after lung biopsy Technique: Case discussed with Dr. Mcgovern and verbal order for chest replacement obtained. Informed consent obtained prior to commencement of the procedure. Procedure timeout performed. Localizing acquisitions obtained through the chest. Intended puncture site sterilely prepped and draped. Local anesthesia with posterior lidocaine. A chest Vimal-vent catheter was then directed using trocar technique into the pleural space at the level of the fifth intercostal space in the midclavicular line. The pneumothorax was then forcibly aspirated. Followup CT scanning confirms evacuation of most of the pneumothorax. The patient tolerated the procedure well, without immediate complication. Vent was placed to Pleur-evac low intermittent suction Total dose length product 955 mGycm. CTDIvol(s) 13, 9, 12 mGy. Radiation dose was minimized using automated exposure control Comparison: None Findings: As above Impression: Successful CT-guided placement of right chest vent catheter for evacuation of postbiopsy pneumothorax The CT scanner at [facility] is accredited by the [employer] and the scans are performed using protocols designed to limit radiation exposure to as low as reasonably achievable to attain images of sufficient resolution adequate for diagnostic evaluation.
--- NOTE | 2017-05-25 16:15 | Diagnostic Imaging Report ---
Indication: Right lung mass Technique: Imaging studies reviewed. Informed consent obtained prior to commencement of the procedure. Procedure timeout performed. Localizing slices obtained. Sterile prepping and. The intended puncture site. Local anesthesia with posterior lidocaine. Under CT guidance, the right lower lobe nodule was accessed using a 20-gauge Accu cut needle. CT acquisition demonstrated needle tip position within the target lesion, but immediate development of a pneumothorax. The specimen was obtained, and provided to pathology. The procedure was then terminated due to the presence of the pneumothorax. Total dose length product 652 mGycm. CTDIvol(s) 14, 11, 11, 11 mGy. Dose reduction achieved using automated exposure control Comparison: Reference made to chest CT 05/21/2017 Findings: As above Impression: Right lung fine-needle aspiration of right lower lobe mass, complicated by immediate development of a pneumothorax. Final pathology pending
[2017-05-25] MEDS ORDERED: D5 1/2NS 1000ml IV ONE (16:36)
[2017-05-25] MEDS ORDERED: Nitroglycerin Subl 0.4mg tab SL PRN (16:45)
--- NOTE | 2017-05-25 16:51 | Diagnostic Imaging Report ---
Indication: SOB, status post lung biopsy Technique: One view of the chest Comparison: 05/20/2017 Findings: Interim development of large, greater than 50%, right pneumothorax. Atelectatic changes are seen in the right lung base. Right midlung nodule is demonstrated, displaced medially. Persists elevation left hemidiaphragm. The heart is upper limits normal in size. Aorta is tortuous ectatic and calcified Impression: Interim development of large postbiopsy right pneumothorax, as described. Critical value findings provided to Dr. Mcgovern at the time of interpretation, and a chest vent catheter was immediately placed
[2017-05-25] MEDS ORDERED: Norco 10mg/325mg tab ORAL PRN (17:00)
[2017-05-25] MEDS ORDERED: Mylanta II UD 30ml ORAL PRN (17:00)
--- NOTE | 2017-05-25 17:02 | Diagnostic Imaging Report ---
Indication: Status post chest vent placement for pneumothorax Technique: One view of the chest Comparison: One hour earlier Findings: Interim placement of a right chest vent catheter. Interim resolution of previously demonstrated large right pneumothorax. There is some atelectasis at the right lung base. There is elevation left hemidiaphragm. The heart remains enlarged. Impression: Resolved large right pneumothorax, post placement of chest vent catheter
[2017-05-25] MEDS ORDERED: Morphine Sulfate 10mg/ml Inj IV PRN (18:00)
--- NOTE | 2017-05-25 20:20 | Cardiology Progress Note ---
Assessment/Plan Assessment/Plan ptx iatrogenic lung masses tobacco use do cad s/p bms in lad adn cx 12/2015 anemia hx of mild systolic dysfunction copd dvt hx [id number] intermediate risk of perioperative cardiac complication not prohibitive forma cardiac view point no sig or sx of acs at this time s/p pci 2015 ekg neg ck echo and bnp and torp in am , repat ekg Objective Last 24 Hour Vital Signs Date Time Temp Pulse Resp B/P (MAP) Pulse Ox O2 Delivery O2 Flow Rate FiO2 05/25/17 16:46 63 05/25/17 16:00 97.5 62 20 114/74 99 Simple Mask 6.0 05/25/17 14:10 97.7 05/25/17 14:10 97.7 05/25/17 13:15 75 32 123/88 98 Simple Mask 6.0 05/25/17 13:10 75 32 137/92 96 Simple Mask 8.0 05/25/17 13:05 95 32 8.0 05/25/17 13:05 95 32 167/116 94 Simple Mask 8.0 05/25/17 12:00 97.7 62 17 125/79 98 05/25/17 09:45 98.1 05/25/17 09:17 140/83 05/25/17 09:16 61 140/83 05/25/17 08:00 97.0 65 16 126/76 96 05/25/17 07:30 Nasal Cannula 2.0 28 05/25/17 07:30 95 Nasal Cannula 2.0 28 05/25/17 04:01 Nasal Cannula 2.0 05/25/17 04:00 98.1 61 18 140/83 97 05/25/17 00:01 Nasal Cannula 2.0 05/25/17 00:00 97.9 61 17 113/73 98 Intake and Output 05/25/17 05/26/17 19:00 07:00 Intake Total 870 ml Output Total 1150 ml Balance -280 ml Intake Oral 620 ml Blood Product 250 ml Output Urine Total 1150 ml Chest Tube Drainage Total 0 ml # Voids 1 Laboratory Tests Test 05/25/17 04:40 White Blood Count 5.2 K/UL (4.8-10.8) Red Blood Count 3.40 M/UL (4.70-6.10) L Hemoglobin 7.9 G/DL (14.2-18.0) L Hematocrit 27.0 % (42.0-52.0) L Mean Corpuscular Volume 80 FL (80-99) Mean Corpuscular Hemoglobin 23.3 PG (27.0-31.0) L Mean Corpuscular Hemoglobin Concent 29.3 G/DL (32.0-36.0) L Red Cell Distribution Width 20.5 % (11.6-14.8) H Platelet Count 169 K/UL (150-450) Mean Platelet Volume 6.8 FL (6.5-10.1) Neutrophils (%) (Auto) % (45.0-75.0) Lymphocytes (%) (Auto) % (20.0-45.0) Monocytes (%) (Auto) % (1.0-10.0) Eosinophils (%) (Auto) % (0.0-3.0) Basophils (%) (Auto) % (0.0-2.0) Differential Total Cells Counted 100 Neutrophils % (Manual) 68 % (45-75) Lymphocytes % (Manual) 24 % (20-45) Monocytes % (Manual) 8 % (1-10) Eosinophils % (Manual) 0 % (0-3) Basophils % (Manual) 0 % (0-2) Band Neutrophils 0 % (0-8) Platelet Estimate Adequate Platelet Morphology Normal Hypochromasia 1+ Anisocytosis 2+ Microcytosis 1+ Prothrombin Time 11.1 SEC (9.30-11.50) Prothromb Time International Ratio 1.1 (0.9-1.1) Activated Partial Thromboplast Time 31 SEC (23-33) Sodium Level 140 MMOL/L (136-145) Potassium Level 4.3 MMOL/L (3.5-5.1) Chloride Level 106 MMOL/L (98-107) Carbon Dioxide Level 32 MMOL/L (21-32) Anion Gap 2 mmol/L (5-15) L Blood Urea Nitrogen 11 mg/dL (7-18) Creatinine 0.5 MG/DL (0.55-1.30) L Estimat Glomerular Filtration Rate > 60 mL/min (>60) Glucose Level 90 MG/DL (74-106) Calcium Level 9.5 MG/DL (8.5-10.1) Phosphorus Level 2.6 MG/DL (2.5-4.9) Magnesium Level 1.8 MG/DL (1.8-2.4) Total Bilirubin 0.2 MG/DL (0.2-1.0) Aspartate Amino Transf (AST/SGOT) 11 U/L (15-37) L Alanine Aminotransferase (ALT/SGPT) 16 U/L (12-78) Alkaline Phosphatase 82 U/L (46-116) Total Protein 5.7 G/DL (6.4-8.2) L Albumin 2.3 G/DL (3.4-5.0) L Globulin 3.4 g/dL Albumin/Globulin Ratio 0.7 (1.0-2.7) L HALINA WEIR May 25, 2017 20:20
[2017-05-25] MEDS: HYDROmorphone 1mg/ml Carpuject IVP PRN (20:38)
[2017-05-25] MEDS ORDERED: Iron Sucrose 100 MG in NS 55 ML IV SCH (21:00)
[2017-05-25] MEDS ORDERED: Miralax 17gm pkt ORAL PRN (21:00)
--- NOTE | 2017-05-25 21:00 | Consultation ---
DATE OF CONSULTATION: 05/20/2017 SURGEON: Chaparro Cerno M.D. SPECIALITY: Thoracic Surgeon. REFERRING PHYSICIAN: Raheem Mcgovern M.D. HISTORY OF PRESENT ILLNESS: The patient is a 62-year-old male who was admitted to [facility] for renal colic. He was also found to have a right lower lobe lung nodule for which he underwent a CT-guided biopsy. Postprocedure, the patient was found to have a pneumothorax and a pigtail catheter was then placed. Thoracic surgery was then consulted for further evaluation. PAST MEDICAL HISTORY: Notable for 1. Coronary artery disease. 2. Renal colic. 3. COPD. 4. Hypertension. PAST SURGICAL HISTORY: Notable for 1. Coronary stent placement. 2. Renal stent placement. 3. Left hip surgery. MEDICATIONS: Reviewed. ALLERGIES: The patient has no known drug allergies. FAMILY AND SOCIAL HISTORY: The patient lives alone here in [place]. He does have a son and daughter. The patient is , but has a son and daughter in the local area. The patient has smoked 40-pack years of cigarettes and has had a 45-pack years of smoking history. Currently, he smokes about 5 to 10 cigarettes per day. He denies any alcohol or illicit drug use. PHYSICAL EXAMINATION: VITAL SIGNS: He is noted to be afebrile. His vitals are within normal limits. CARDIAC: Regular rate and rhythm. No gallops, murmur or rub. RESPIRATORY: Clear to auscultation on the left and with some decreased breath on the right. ABDOMEN: Soft and nondistended. There is epigastric firmness palpated. EXTREMITIES: No evidence of cyanosis, clubbing, or edema. LABORATORY AND DIAGNOSTIC DATA: Laboratory study performed on 05/25/2017 show a WBC of 5.2, hemoglobin 7.9, hematocrit 27, and a platelet count is 169. His sodium is 140, potassium 4.3, chloride 106, bicarbonate 32, BUN is 11, creatinine 0.5 and glucose is 90. A chest CT scan was performed on 05/25/2017, which demonstrated a right lower lobe nodule. In addition, the patient also was noted to have some mediastinal adenopathy. 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 ASSESSMENT AND PLAN: This is a 62-year-old male, who was admitted to [facility] and underwent a CT-guided biopsy of the right lung nodule with resulting pneumothorax. The patient was evaluated at bedside. After reviewing his clinical database, I recommend that he undergoes a pulmonary function tests. I will also wait for the results of the biopsy. The patient will likely benefit from a right video-assisted thoracoscopic surgery with a possible right lower lobe wedge versus lobectomy. The paraesophageal herniation can be surgically repaired electively. Furthermore, the patient should be seen by Cardiology for preop cardiology clearance. I want to thank you for referring this patient to my attention. If there are any questions in regards to this patient's clinical care, please do not hesitate to contact me. Wright M.D. DR: GIANA JOB#: [id number] CC: [email or web address]
[2017-05-25] MEDS: Iron Sucrose 100 MG in NS 55 ML IV SCH (21:09)
[2017-05-26] VITALS: BP 125/76
[2017-05-26] MEDS: Ketorolac 30mg Inj IV SCH ×2 (00:21→06:01)
[2017-05-26] MEDS: HYDROmorphone 1mg/ml Carpuject IVP PRN ×5 (01:37→21:16)
[2017-05-26 04:00] VITALS: BP 112/73
--- NOTE | 2017-05-26 04:00 | Consultation ---
DATE OF CONSULTATION: 05/25/2017 PAIN MANAGEMENT CONSULTATION REFERRING PHYSICIAN: Raheem Mcgovern M.D. CONSULTING PHYSICIAN: Jah Pineda M.D. PHYSICIAN JAVA PORTAL DEVELOPER: Cherie Jordan CHIEF COMPLAINT: Generalized body pain. HISTORY OF PRESENT ILLNESS: The patient is a 62-year-old male who is being seen on the Med/Surg floor of [facility] for initial comprehensive pain management consultation. The patient has been admitted under the care of Dr. Mcgovern with complaints of left flank pain, found to have left kidney stone at the UP junction with intractable pain. The patient has a history of COPD. At this time, he has been seen by Dr. Fischer, status post cystoscopy with double-J stent placement and fluoroscopy, now complaining of generalized body pain, more so on the right side of body, also found to have a lung mass on CT scan, going for a lung biopsy later today, on morphine 4 mg IV every two hours as needed for severe breakthrough pain and [place] 10/325 mg every six hours as needed for severe pain with reduction in his pain. We were consulted so that the patient would have adequate pain control while here in the hospital. Discussed the patient about adding Neurontin to his regimen. The patient understands and agrees. PAST MEDICAL HISTORY: COPD and nephrolithiasis. MEDICATIONS: Ventolin, Symbicort, carvedilol, vitamin D, Plavix, lisinopril, and Spiriva. ALLERGIES: No known drug allergies. REVIEW OF SYSTEMS: Denies rash, fever, chills, sweating, dizziness, drowsiness, blurred vision, sore throat, or change in his weight. Denies nausea, vomiting, diarrhea, or blood in the stool or urine. No bowel or bladder incontinence. No shortness of breath. Generalized body pain. PHYSICAL EXAMINATION: GENERAL: Alert, awake, and oriented. VITAL SIGNS: Blood pressure is 140/87, heart rate is 61, oxygen saturation 97%, respiratory rate 18, and temperature is 98.1 degrees Fahrenheit. HEENT: PERRLA. NECK: Range of motion is full in all directions. No tenderness to paracervical muscles. No adenopathy. LUNGS: Clear to auscultation bilaterally. HEART: Regular. ABDOMEN: Benign. BACK: Range of motion is decreased in flexion and extension with tenderness to paraspinal muscles. No tenderness to trapezius and rhomboid muscles. EXTREMITIES: Upper extremity range of motion is decreased due to the patient's condition. No cyanosis. No clubbing. No edema. Sensory is intact. Reflexes are unobtainable. Lower extremity range of motion is decreased due to the patient's condition. No cyanosis. No clubbing. No edema. Sensory is intact. Reflexes are unobtainable. No adenopathy. ASSESSMENT AND PLAN: This is a 62-year-old male with pain, lung mass, and intractable pain. The patient will be continued on morphine and [place], and we will add Neurontin 200 mg twice a day. The patient was discussed with Dr. Pineda and Dr. Pineda concurred. We will follow the patient. Thank you very much for the courtesy of this consultation. Jah Pineda M.D. DARREN Jordan DR: Reinaldo JOB#: [id number] CC:
[2017-05-26] MEDS: Norco 10mg/325mg tab ORAL PRN ×3 (04:27→18:19)
--- NOTE | 2017-05-26 04:30 | Consultation ---
DATE OF CONSULTATION: 05/25/2017 CARDIOLOGY CONSULTATION CONSULTING PHYSICIAN: Santino Crane M.D. REFERRING PHYSICIAN: Raheem Mcgovern M.D. REASON FOR REFERRAL: Preoperative risk assessment. HISTORY OF PRESENT ILLNESS: This is a 62-year-old gentleman with history of COPD with significant functional limitations as well as significant smoking history, who came into the hospital because of abdominal pain and found to have a stone. Attempts were made to retrieve the stone and were unsuccessful. The patient underwent a stent placement evaluation, however, it showed there was some lung mass and attempted biopsy of the lung mass led to pneumothorax. He now requires VATS therapy for his treatment of pneumothorax and removal of the lung segment depending on the findings. He really did not have any chest pain. He does have significant shortness of breath with limited activities. There is no PND or orthopnea, although he does have in almost semi-upright position because of orthopedic issues, not because of shortness of breath. No heart pounding or palpitation except on rare occasion. No dizziness or lightheadedness. PAST MEDICAL HISTORY: His past medical history is extensive and as delineated in [facility] records, which I had a chance to review. He has past medical history of benign prostatic hypertrophy, deep venous thrombosis, right wrist fracture for which he was hospitalized in 12/2015, noted to have [id number] myocardial infarction, underwent cardiac catheterization and PCI to mid LAD with P[place]ar REBEL bare metal stent and mid circumflex Medtronic Integrity bare metal stent that was placed in the circumflex artery back again in 12/2015. He has apparently done well. He has also history of hip fracture, history of COPD, superficial thrombosis of the left lower extremity, community-acquired pneumonia, acute on chronic systolic heart failure, benign nodular prostatic hyperplasia without urinary tract symptoms, low back pain, osteoarthritis, metal plate placement in 2011, anemia, and depression. SOCIAL HISTORY: Two packs per day smoking for approximately 30 years and five cigarettes per day. Alcohol, denied. Drugs, he denies. He used to work in construction. REVIEW OF SYSTEMS: GASTROINTESTINAL: Negative. GENITOURINARY: Negative. PULMONARY: He has occasional coughing. No wheezing. CONSTITUTIONAL: Negative. NEUROLOGICAL: Negative. PULMONARY: He has occasional pain after his tube was placed in the right side of the chest. PHYSICAL EXAMINATION: GENERAL: Shows to be a middle-aged gentleman, in no respiratory distress, sharp pains in the right side of the chest at the site of the PleurX catheter. NECK: Supple. No jugular venous distention. LUNGS: Decreased breath sounds noted bilaterally. Crackles noted at the right base. CARDIAC: Regular rate and rhythm. No heaves, thrills, or gallops noted. ABDOMEN: Soft and nontender. Positive bowel sounds. EXTREMITIES: Pneumatic compression stockings in place. No clubbing or cyanosis nor is there any edema. NEUROLOGIC: He is awake, alert, responsive, and in no apparent respiratory distress. LABORATORY AND DIAGNOSTIC DATA: White count 5.3, hemoglobin 7.9, and platelet count of 169,000. His sodium 140, potassium 4.3, chloride 106, bicarbonate 32, BUN of 11, creatinine of 0.5, and glucose of 90. Liver function tests are otherwise unremarkable with ALT and AST of 11 and 16. Cardiac enzymes on 05/20/2017 was normal and B12 was 290. INR 1.1 and PTT of 33. Urinalysis shows 20-30 RBCs and 5-10 WBCs. Electrocardiogram showed normal sinus rhythm, normal QRS axis, normal EKG which is really unchanged since his last EKG of 03/12/2017. ASSESSMENT AND PLAN: 1. Pneumothorax, iatrogenic. 2. Lung mass. 3. Coronary artery disease, status post bare metal stent placement in the left anterior descending artery and circumflex artery in 12/2015. 4. History of deep venous thrombosis, on Xarelto. 5. Chronic obstructive pulmonary disease. 6. History of systolic dysfunction of mild degree with apical hypokinesis. 7. History of deep venous thrombosis. 8. Tobacco use disorder. Dr. Mcgovern, this patient was seen in cardiac consultation. The patient does not have any signs or symptoms of acute coronary syndrome. There are no electrocardiographic abnormalities suggestive of acute coronary syndrome or symptoms to suggest coronary syndrome. He does have chronic obstructive pulmonary disease and that puts him at a little bit higher risk of these for secondary cardiac complications of at least moderate degree. He does have significant pain from his pneumothorax that had been initially treated with pain medications. An echocardiogram will be ordered for evaluation of left ventricular systolic function. Cardiac enzymes and BNP will be ordered for tomorrow morning as well. Santino Crane M.D. DR: Joanne JOB#: [id number] CC:
[2017-05-26] MEDS: D5 1/2NS 1,000 ML IV SCH ×2 (06:05→18:18)
[2017-05-26] MEDS: cefTRIAXone 1 GM in D5W 55 ML IVPB SCH (06:05)
[2017-05-26 08:00] VITALS: BP 125/84
[2017-05-26 08:25] LABS: OTHERS PATHOLOGIST COMMENT
--- NOTE | 2017-05-26 08:41 | General Progress Note ---
Assessment/Plan Assessment/Plan (1) Intractable pain (2) Lung mass (3) Chest wall pain (4) Pneumothorax s/p chest tube placement (5) Multiple joint OA (6) Multiple joint pain Pt will be continued on [place] and Dilaudid D/w Dr. Pineda and he concurred. Subjective Date patient seen: May 26, 2017 Time patient seen: 07:30 - am Allergies: Coded Allergies: No Known Allergies (Unverified , 05/20/17) Subjective REVIEW OF SYSTEMS: Denies rash, fever, chills, sweating, dizziness, drowsiness, blurred vision, sore throat, or change in his weight. Denies nausea, vomiting, diarrhea, or blood in the stool or urine. No bowel or bladder incontinence. Complaining of shortness of breath and Generalized body pain. SUBJECTIVE: Patient is s/p biopsy of lung mass however it was not able to be done and a pneumothorax occurred now a chest tube was placed. Due to this his pain has been severe. He was started on Dilaudid 1mg IV Q4H PRN severe pain, which has been helped for his pain. Objective Last 24 Hour Vital Signs Date Time Temp Pulse Resp B/P (MAP) Pulse Ox O2 Delivery O2 Flow Rate FiO2 05/26/17 08:00 97.2 65 21 125/84 95 Nasal Cannula 3.0 05/26/17 04:00 61 05/26/17 04:00 97.7 16 112/73 94 Nasal Cannula 3.0 05/26/17 00:00 67 05/26/17 00:00 97.5 61 20 125/76 99 Nasal Cannula 3.0 05/25/17 20:00 96.4 62 18 129/88 Nasal Cannula 3.0 05/25/17 20:00 71 05/25/17 19:00 Nasal Cannula 2.0 28 05/25/17 19:00 96 Nasal Cannula 2.0 28 05/25/17 16:46 63 05/25/17 16:00 97.5 62 20 114/74 99 Simple Mask 6.0 05/25/17 14:10 97.7 05/25/17 14:10 97.7 05/25/17 13:15 75 32 123/88 98 Simple Mask 6.0 05/25/17 13:10 75 32 137/92 96 Simple Mask 8.0 05/25/17 13:05 95 32 8.0 05/25/17 13:05 95 32 167/116 94 Simple Mask 8.0 05/25/17 12:00 97.7 62 17 125/79 98 05/25/17 09:45 98.1 05/25/17 09:17 140/83 05/25/17 09:16 61 140/83 Laboratory Tests 05/26/17 03:15: Troponin I 0.529H, Pro-B-Type Natriuretic Peptide 1782H Height (Feet): 5 Height (Inches): 9.00 Weight (Pounds): 130 Objective GENERAL: Alert, awake, and oriented. HEENT: PERRLA. NECK: Range of motion is full in all directions. No tenderness to paracervical muscles. No adenopathy. LUNGS: decreased breath sounds b/l with chest tube noted at right chest wall. HEART: Regular. ABDOMEN: Benign. BACK: Range of motion is decreased in flexion and extension with tenderness to paraspinal muscles. No tenderness to trapezius and rhomboid muscles. EXTREMITIES: No cyanosis. No clubbing. No edema. NEURO: No changes. BLANCA ROSS May 26, 2017 08:41
[2017-05-26] MEDS: Heparin 5000 units/ml inj SUBQ SCH ×2 (09:00→21:00)
[2017-05-26] MEDS: Tamsulosin 0.4mg cap ORAL SCH ×2 (09:02→17:08)
[2017-05-26] MEDS ORDERED: DEXTROSE IV ONE (09:07)
[2017-05-26] MEDS: Lisinopril 20mg tab ORAL SCH (09:50)
[2017-05-26 12:00] VITALS: BP 119/80
--- NOTE | 2017-05-26 12:15 | Pulmonology Progress Note ---
Assessment/Plan Problems: (1) Renal stone (2) COPD (chronic obstructive pulmonary disease) (3) Hydronephrosis (4) Lung mass Assessment/Plan cardio note appreciated doing better ct in place Dr. Ceron informed about pain management symptomatic treatment Subjective ROS Limited/Unobtainable: No Constitutional: Reports: no symptoms HEENT: Repors: no symptoms Respiratory: Reports: no symptoms Allergies: Coded Allergies: No Known Allergies (Unverified , 05/20/17) Objective Last 24 Hour Vital Signs Date Time Temp Pulse Resp B/P (MAP) Pulse Ox O2 Delivery O2 Flow Rate FiO2 05/26/17 12:00 98.2 60 21 119/80 96 Nasal Cannula 3.0 05/26/17 11:50 66 05/26/17 09:50 125/84 05/26/17 09:50 62 125/84 05/26/17 08:00 97.2 65 21 125/84 95 Nasal Cannula 3.0 05/26/17 08:00 62 05/26/17 04:00 61 05/26/17 04:00 97.7 16 112/73 94 Nasal Cannula 3.0 05/26/17 00:00 67 05/26/17 00:00 97.5 61 20 125/76 99 Nasal Cannula 3.0 05/25/17 20:00 96.4 62 18 129/88 Nasal Cannula 3.0 05/25/17 20:00 71 05/25/17 19:00 Nasal Cannula 2.0 28 05/25/17 19:00 96 Nasal Cannula 2.0 28 05/25/17 16:46 63 05/25/17 16:00 97.5 62 20 114/74 99 Simple Mask 6.0 05/25/17 14:10 97.7 05/25/17 14:10 97.7 05/25/17 13:15 75 32 123/88 98 Simple Mask 6.0 05/25/17 13:10 75 32 137/92 96 Simple Mask 8.0 05/25/17 13:05 95 32 8.0 05/25/17 13:05 95 32 167/116 94 Simple Mask 8.0 Intake and Output 05/26/17 05/27/17 19:00 07:00 Intake Total 640 ml Balance 640 ml Intake Oral 340 ml IV Total 300 ml Objective General Appearance: WD/WN Lines, tubes and drains: peripheral, HEENT: normocephalic, atraumatic Neck: non-tender, normal alignment Respiratory/Chest: chest wall non-tender, lungs clear, normal breath sounds Breasts: no masses Cardiovascular/Chest: normal rate Abdomen: normal bowel sounds Extremities: normal range of motion Laboratory Tests 05/26/17 03:15: Troponin I 0.529H, Pro-B-Type Natriuretic Peptide 1782H Current Medications Medications (Trade) Dose Ordered Sig/[place] Route PRN Reason Start Time Stop Time Status Last Admin Dose Admin Acetaminophen (Tylenol) 650 mg Q4H PRN ORAL T>100.5 05/25/17 17:00 06/20/17 16:59 Acetaminophen/ Hydrocodone Bitart ([place] 10/325) 1 ea Q6H PRN ORAL Moderate Pain (Pain Scale 4-6) 05/25/17 17:30 06/01/17 17:29 05/26/17 11:40 Al Hydroxide/Mg Hydroxide (Mylanta II) 30 ml Q6H PRN ORAL dyspepsia 05/25/17 17:00 06/20/17 16:59 Carvedilol (Coreg) 3.125 mg DAILY ORAL 05/26/17 09:00 06/20/17 08:59 05/26/17 09:50 Ceftriaxone Sodium 1 gm/ Dextrose 55 ml @ 110 mls/hr Q24H IVPB 05/26/17 06:00 05/28/17 05:59 05/26/17 06:05 Dextrose (Dextrose 50%) STAT PRN IV Hypoglycemia 05/25/17 17:00 06/24/17 16:59 Dextrose/Sodium Chloride 1,000 ml @ 75 mls/hr [id number] IV 05/25/17 17:00 06/20/17 16:59 05/26/17 06:05 Diphenhydramine HCl (Benadryl) 25 mg Q6H PRN ORAL Itching/Pruritis 05/25/17 17:00 06/20/17 16:59 Gabapentin (Neurontin) 300 mg THREE TIMES A DAY ORAL 05/25/17 18:00 06/24/17 08:59 05/26/17 09:02 Heparin Sodium (Porcine) (Heparin 5000 units/ml) 5,000 units EVERY 12 HOURS SUBQ 05/25/17 21:00 06/20/17 08:59 Hydromorphone HCl (Dilaudid) 1 mg Q4H PRN IVP Severe Pain (Pain Scale 7-10) 05/25/17 17:15 06/01/17 17:14 05/26/17 09:02 Iron Sucrose 100 mg/Sodium Chloride 60 ml @ 240 mls/hr BEDTIME IV 05/25/17 21:00 05/29/17 21:01 05/25/17 21:09 Lisinopril (Prinivil) 20 mg DAILY ORAL 05/26/17 09:00 06/20/17 08:59 05/26/17 09:50 Nitroglycerin (Ntg) 0.4 mg Q5M X 3 DOSES PRN SL Prn Chest Pain 05/25/17 16:45 06/20/17 05:59 Ondansetron HCl (Zofran) 4 mg Q6H PRN IVP Nausea & Vomiting 05/25/17 18:00 06/20/17 05:59 Polyethylene Glycol (Miralax) 17 gm HSPRN PRN ORAL Constipation 05/25/17 21:00 06/24/17 20:59 Tamsulosin HCl (Flomax) 0.4 mg BID ORAL 05/25/17 18:00 06/20/17 08:59 05/26/17 09:02 Temazepam (Restoril) 15 mg HSPRN PRN ORAL Insomnia 05/25/17 21:00 06/01/17 20:59 05/26/17 00:25 MAXIMILIANO COOLEY May 26, 2017 12:15
[2017-05-26 12:30] LABS: ANION GAP 4 mmol/L (5-15); CALCIUM 9.8 MG/DL (8.5-10.1); CARBON DIOXIDE 30 MMOL/L (21-32); CHLORIDE 105 MMOL/L (98-107); CREATININE 0.6 MG/DL (0.55-1.30); GLOMERULAR FILTRATION RATE > 60 mL/min (>60); POTASSIUM 4.3 MMOL/L (3.5-5.1); SODIUM 139 MMOL/L (136-145)
[2017-05-26 12:39] LABS: BASOPHILS % (AUTO) 0.9 % (0.0-2.0); EOSINOPHILS % (AUTO) 1.6 % (0.0-3.0); LYMPHOCYTES % (AUTO) 19.9 % (20.0-45.0); MEAN CORPUSCULAR HEMOGLOBIN 24.2 PG (27.0-31.0); MEAN CORPUSCULAR HGB CONC 30.1 G/DL (32.0-36.0); MEAN CORPUSCULAR VOLUME 80 FL (80-99); MEAN PLATELET VOLUME 6.4 FL (6.5-10.1); MONOCYTES % (AUTO) 8.5 % (1.0-10.0); NEUTROPHILS % (AUTO) 69.2 % (45.0-75.0); PLATELET COUNT 165 K/UL (150-450); RED BLOOD COUNT 3.57 M/UL (4.70-6.10); RED CELL DISTRIBUTION WIDTH 19.1 % (11.6-14.8); WHITE BLOOD COUNT 5.6 K/UL (4.8-10.8)
--- NOTE | 2017-05-26 15:45 | Diagnostic Imaging Report ---
Indication: Reason For Exam: PNEUMOTX, shortness of breath Technique: One view of the chest Comparison: 05/25/2017 Findings: Again demonstrated is a right chest vent catheter. Pneumothorax is demonstrated. Right midlung nodule is again noted. Elevation of the left hemidiaphragm again noted. Normal heart size. Tortuous calcified aorta Impression: Unchanged, over one day, findings as above.
[2017-05-26 16:00] VITALS: BP 126/88
[2017-05-26] MEDS ORDERED: D5 1/2NS 1000ml IV ONE (16:23)
--- NOTE | 2017-05-26 16:31 | Cardiology Progress Note ---
Assessment/Plan Assessment/Plan 1. Pneumothorax, iatrogenic. 2. Lung mass. 3. Coronary artery disease, status post bare metal stent placement in the left anterior descending artery and circumflex artery in 12/2015. 4. History of deep venous thrombosis, on Xarelto. 5. Chronic obstructive pulmonary disease. 6. History of systolic dysfunction of mild degree with apical hypokinesis now with normal wall motion 7. History of deep venous thrombosis. 8. Tobacco use disord no sig or sx of acs at this time ekg no st changes echo now normal wall motion s/p pci 2016 trop below threshold but did increase a bit will reorder now and in am will order dobutamine Cardiolite stress test Subjective Cardiovascular: Reports: chest pain - righ sidie at the site or chest tube radiating to th right shoulder with inspiration no left sided cp at all , Denies : lightheadedness, palpitations Respiratory: Reports: shortness of breath, SOB at rest Objective Last 24 Hour Vital Signs Date Time Temp Pulse Resp B/P (MAP) Pulse Ox O2 Delivery O2 Flow Rate FiO2 05/26/17 12:00 98.2 60 21 119/80 96 Nasal Cannula 3.0 05/26/17 11:50 66 05/26/17 09:50 125/84 05/26/17 09:50 62 125/84 05/26/17 08:00 97.2 65 21 125/84 95 Nasal Cannula 3.0 05/26/17 08:00 62 05/26/17 04:00 61 05/26/17 04:00 97.7 16 112/73 94 Nasal Cannula 3.0 05/26/17 00:00 67 05/26/17 00:00 97.5 61 20 125/76 99 Nasal Cannula 3.0 05/25/17 20:00 96.4 62 18 129/88 Nasal Cannula 3.0 05/25/17 20:00 71 05/25/17 19:00 Nasal Cannula 2.0 28 05/25/17 19:00 96 Nasal Cannula 2.0 28 05/25/17 16:46 63 Intake and Output 05/26/17 05/27/17 19:00 07:00 Intake Total 1015 ml Output Total 2300 ml Balance -1285 ml Intake Oral 340 ml IV Total 675 ml Output Urine Total 2300 ml Laboratory Tests Test 05/26/17 03:10 05/26/17 03:15 White Blood Count 5.6 K/UL (4.8-10.8) Red Blood Count 3.57 M/UL (4.70-6.10) L Hemoglobin 8.7 G/DL (14.2-18.0) L Hematocrit 28.7 % (42.0-52.0) L Mean Corpuscular Volume 80 FL (80-99) Mean Corpuscular Hemoglobin 24.2 PG (27.0-31.0) L Mean Corpuscular Hemoglobin Concent 30.1 G/DL (32.0-36.0) L Red Cell Distribution Width 19.1 % (11.6-14.8) H Platelet Count 165 K/UL (150-450) Mean Platelet Volume 6.4 FL (6.5-10.1) L Neutrophils (%) (Auto) 69.2 % (45.0-75.0) Lymphocytes (%) (Auto) 19.9 % (20.0-45.0) L Monocytes (%) (Auto) 8.5 % (1.0-10.0) Eosinophils (%) (Auto) 1.6 % (0.0-3.0) Basophils (%) (Auto) 0.9 % (0.0-2.0) Sodium Level 139 MMOL/L (136-145) Potassium Level 4.3 MMOL/L (3.5-5.1) Chloride Level 105 MMOL/L (98-107) Carbon Dioxide Level 30 MMOL/L (21-32) Anion Gap 4 mmol/L (5-15) L Blood Urea Nitrogen 15 mg/dL (7-18) Creatinine 0.6 MG/DL (0.55-1.30) Estimat Glomerular Filtration Rate > 60 mL/min (>60) Glucose Level 84 MG/DL (74-106) Calcium Level 9.8 MG/DL (8.5-10.1) Troponin I 0.529 ng/mL (0.000-0.056) Pro-B-Type Natriuretic Peptide 1782 pg/mL (0-125) H HALINA WEIR May 26, 2017 16:31
[2017-05-26] MEDS ORDERED: Lexiscan 0.4mg/5ml syringe IV PRN (16:45)
[2017-05-26 20:00] VITALS: BP 99/67
[2017-05-26] MEDS: Iron Sucrose 100 MG in NS 55 ML IV SCH (21:13)
[2017-05-27] VITALS: BP 111/69
[2017-05-27] MEDS: HYDROmorphone 1mg/ml Carpuject IVP PRN ×6 (01:15→21:56)
[2017-05-27] MEDS: Norco 10mg/325mg tab ORAL PRN ×3 (03:17→16:08)
[2017-05-27 04:00] VITALS: BP 134/85
[2017-05-27] MEDS: cefTRIAXone 1 GM in D5W 55 ML IVPB SCH (06:19)
[2017-05-27 08:00] VITALS: BP 132/81
--- NOTE | 2017-05-27 08:15 | General Progress Note ---
Assessment/Plan Assessment/Plan (1) Intractable pain (2) Lung mass (3) Chest wall pain (4) Pneumothorax s/p chest tube placement (5) Multiple joint OA (6) Multiple joint pain Pt will be continued on [place] and Dilaudid D/w Dr. Pineda and he concurred. Subjective Date patient seen: May 27, 2017 Time patient seen: 07:45 - am Allergies: Coded Allergies: No Known Allergies (Unverified , 05/20/17) Subjective REVIEW OF SYSTEMS: Denies rash, fever, chills, sweating, dizziness, drowsiness, blurred vision, sore throat, or change in his weight. Denies nausea, vomiting, diarrhea, or blood in the stool or urine. No bowel or bladder incontinence. Complaining of shortness of breath and Generalized body pain. SUBJECTIVE: Patient reports that his pain continues to be a sharp stabbing pain due to chest tube. The pain has been severe and reduced on the Dilaudid with [place] as needed. Objective Last 24 Hour Vital Signs Date Time Temp Pulse Resp B/P (MAP) Pulse Ox O2 Delivery O2 Flow Rate FiO2 05/27/17 04:00 98.0 77 20 134/85 94 Nasal Cannula 2.0 05/27/17 04:00 77 05/27/17 00:10 73 05/27/17 00:00 98.4 77 20 111/69 94 Nasal Cannula 2.0 05/26/17 20:00 98.0 77 20 99/67 94 Nasal Cannula 2.0 05/26/17 19:58 72 05/26/17 16:00 72 05/26/17 16:00 98.6 77 21 126/88 94 Nasal Cannula 3.0 05/26/17 12:00 98.2 60 21 119/80 96 Nasal Cannula 3.0 05/26/17 11:50 66 05/26/17 09:50 125/84 05/26/17 09:50 62 125/84 Laboratory Tests 05/26/17 17:00: Troponin I 0.182H 05/27/17 04:00: Troponin I 0.075H Height (Feet): 5 Height (Inches): 9.00 Weight (Pounds): 130 Objective GENERAL: Alert, awake, and oriented. HEENT: PERRLA. NECK: Range of motion is full in all directions. No tenderness to paracervical muscles. No adenopathy. LUNGS: decreased breath sounds b/l with chest tube noted at right chest wall. HEART: Regular. ABDOMEN: Benign. BACK: Range of motion is decreased in flexion and extension with tenderness to paraspinal muscles. No tenderness to trapezius and rhomboid muscles. EXTREMITIES: No cyanosis. No clubbing. No edema. NEURO: No changes. BLANCA ROSS. May 27, 2017 08:15
[2017-05-27] MEDS: D5 1/2NS 1,000 ML IV SCH ×2 (08:57→22:01)
[2017-05-27] MEDS: Heparin 5000 units/ml inj SUBQ SCH ×2 (09:00→20:26)
[2017-05-27] MEDS: Tamsulosin 0.4mg cap ORAL SCH ×2 (09:00→18:43)
--- NOTE | 2017-05-27 11:47 | Pulmonology Progress Note ---
Assessment/Plan Problems: (1) Renal stone (2) COPD (chronic obstructive pulmonary disease) (3) Hydronephrosis (4) Lung mass Assessment/Plan cardio note appreciated doing better ct in place Dr. Ceron informed about pain management awaiting stress test, thoracoscopy is planned for tomorrow. Subjective ROS Limited/Unobtainable: No Constitutional: Reports: no symptoms HEENT: Repors: no symptoms Respiratory: Reports: no symptoms Allergies: Coded Allergies: No Known Allergies (Unverified , 05/20/17) Objective Last 24 Hour Vital Signs Date Time Temp Pulse Resp B/P (MAP) Pulse Ox O2 Delivery O2 Flow Rate FiO2 05/27/17 09:00 65 132/81 05/27/17 08:57 65 05/27/17 08:00 97.5 65 20 132/81 95 Nasal Cannula 2.0 05/27/17 04:00 98.0 77 20 134/85 94 Nasal Cannula 2.0 05/27/17 04:00 77 05/27/17 00:10 73 05/27/17 00:00 98.4 77 20 111/69 94 Nasal Cannula 2.0 05/26/17 20:00 98.0 77 20 99/67 94 Nasal Cannula 2.0 05/26/17 19:58 72 05/26/17 16:00 72 05/26/17 16:00 98.6 77 21 126/88 94 Nasal Cannula 3.0 05/26/17 12:00 98.2 60 21 119/80 96 Nasal Cannula 3.0 05/26/17 11:50 66 Objective General Appearance: WD/WN Lines, tubes and drains: peripheral, HEENT: normocephalic, atraumatic Neck: non-tender, normal alignment Respiratory/Chest: chest wall non-tender, lungs clear, normal breath sounds Breasts: no masses Cardiovascular/Chest: normal rate Abdomen: normal bowel sounds Extremities: normal range of motion Laboratory Tests 05/26/17 17:00: Troponin I 0.182H 05/27/17 04:00: Troponin I 0.075H Current Medications Medications (Trade) Dose Ordered Sig/[place] Route PRN Reason Start Time Stop Time Status Last Admin Dose Admin Acetaminophen (Tylenol) 650 mg Q4H PRN ORAL T>100.5 05/25/17 17:00 06/20/17 16:59 Acetaminophen/ Hydrocodone Bitart ([place] 10/325) 1 ea Q6H PRN ORAL Moderate Pain (Pain Scale 4-6) 05/25/17 17:30 06/01/17 17:29 05/27/17 08:52 Al Hydroxide/Mg Hydroxide (Mylanta II) 30 ml Q6H PRN ORAL dyspepsia 05/25/17 17:00 06/20/17 16:59 Carvedilol (Coreg) 3.125 mg DAILY ORAL 05/26/17 09:00 06/20/17 08:59 05/26/17 09:50 Ceftriaxone Sodium 1 gm/ Dextrose 55 ml @ 110 mls/hr Q24H IVPB 05/26/17 06:00 05/28/17 05:59 05/27/17 06:19 Dextrose (Dextrose 50%) STAT PRN IV Hypoglycemia 05/25/17 17:00 06/24/17 16:59 Dextrose/Sodium Chloride 1,000 ml @ 75 mls/hr [id number] IV 05/25/17 17:00 06/20/17 16:59 05/27/17 08:57 Diphenhydramine HCl (Benadryl) 25 mg Q6H PRN ORAL Itching/Pruritis 05/25/17 17:00 06/20/17 16:59 Gabapentin (Neurontin) 300 mg THREE TIMES A DAY ORAL 05/25/17 18:00 06/24/17 08:59 05/27/17 08:50 Heparin Sodium (Porcine) (Heparin 5000 units/ml) 5,000 units EVERY 12 HOURS SUBQ 05/25/17 21:00 06/20/17 08:59 Hydromorphone HCl (Dilaudid) 1 mg Q4H PRN IVP Severe Pain (Pain Scale 7-10) 05/25/17 17:15 06/01/17 17:14 05/27/17 10:38 Iron Sucrose 100 mg/Sodium Chloride 60 ml @ 240 mls/hr BEDTIME IV 05/25/17 21:00 05/29/17 21:01 05/26/17 21:13 Lisinopril (Prinivil) 20 mg DAILY ORAL 05/26/17 09:00 06/20/17 08:59 05/26/17 09:50 Nitroglycerin (Ntg) 0.4 mg Q5M X 3 DOSES PRN SL Prn Chest Pain 05/25/17 16:45 06/20/17 05:59 Ondansetron HCl (Zofran) 4 mg Q6H PRN IVP Nausea & Vomiting 05/25/17 18:00 06/20/17 05:59 Polyethylene Glycol (Miralax) 17 gm HSPRN PRN ORAL Constipation 05/25/17 21:00 06/24/17 20:59 Regadenoson (Lexiscan) 0.4 mg ONCE PRN IV STRESS 05/26/17 16:45 05/27/17 23:59 Tamsulosin HCl (Flomax) 0.4 mg BID ORAL 05/25/17 18:00 06/20/17 08:59 05/26/17 17:08 Temazepam (Restoril) 15 mg HSPRN PRN ORAL Insomnia 05/25/17 21:00 06/01/17 20:59 05/26/17 00:25 MAXIMILIANO COOLEY May 27, 2017 11:47
[2017-05-27 12:00] VITALS: BP 125/79
--- NOTE | 2017-05-27 13:37 | Wound Care Consultation ---
Wound Assessment Wound Assessment #1: Wound Number: 1 Wound Present on Admission: No New Wound: Yes Status Change of Wound: No Wound Location Body Site Modif: mid Wound Location Body Site: sacral Wound Type: pressure ulcer Dominik Test: Does not Dominik Pressure Ulcer Stage: Deep Tissue Injury Wound Thickness: Full Thickness Wound Length: 2.0 Wound Width: 2.5 Wound Depth: utd Percent of Wound Purple/Maroon: 100 Wound Drainage Amount: None Wound Drainage Odor: None/Absent Tissue Surrounding Wound: Intact Wound General Appearance: Reddened - purple Wound Assessment #2: Wound Number: 2 Wound Present on Admission: No New Wound: Yes Status Change of Wound: No Wound Location Body Site Modif: left Wound Location Body Site: sacral Wound Type: pressure ulcer Dominik Test: Does not Dominik Pressure Ulcer Stage: I Wound Length: 2.5 Wound Width: 2.5 Percent of Wound [place]/Red: 100 Wound Drainage Amount: None Wound Drainage Odor: None/Absent Tissue Surrounding Wound: Intact Wound General Appearance: Reddened Wound Assessment #3: Wound Number: 3 Wound Present on Admission: No New Wound: Yes Status Change of Wound: No Wound Location Body Site Modif: right Wound Location Body Site: sacral Wound Type: pressure ulcer Dominik Test: Does not Dominik Pressure Ulcer Stage: Deep Tissue Injury Wound Thickness: Full Thickness Wound Length: 3.0 Wound Width: 3.0 Wound Depth: utd Percent of Wound Purple/Maroon: 100 Wound Drainage Amount: None Wound Drainage Odor: None/Absent Tissue Surrounding Wound: Intact Wound General Appearance: Reddened - purple Wound Comment #1 Mid sacral area DTI pressure ulcer #2 Left sacral area stage I pressure ulcer #3 Right sacral area DTI pressure ulcer Recommendation -Local wound care per protocol -Keep clean and dry -Turn and reposition -Optimize nutrition -Offload both heels -Heel protector on both heels -Low air loss mattress -Assess and f/u accordingly for any changes THADDEUS CROOK RN May 27, 2017 13:37
[2017-05-27 16:00] VITALS: BP 115/67
[2017-05-27] MEDS: Lisinopril 20mg tab ORAL SCH (16:09)
--- NOTE | 2017-05-27 16:44 | Diagnostic Imaging Report ---
Indications: Chest pain Technique: Single day single isotope protocol utilized. Initially, resting images obtained using IV administration 10.1 millicuries 99M technetium Myoview. Subsequently, patient underwent lexiscan stress testing. See cardiology report for details. During Lexiscan infusion, IV administration 31.3 mCi 99 M technetium Myoview. SPECT and planar images obtained. SPECT images gated to 8 phases of the cardiac cycle were also obtained, and reformatted into cine images for evaluation of ejection fraction. Comparison: None Findings: Per cardiology report, patient experienced no symptoms. Per cardiology report, resting EKG demonstrates normal sinus rhythm, cannot rule out anterior [place]. With infusion, no significant ST-T wave changes noted. Imaging demonstrates considerable artifact due to bowel uptake which results in considerable image degradation. This severely limits interpretation. There is a questionable perfusion defect of the anteroseptal wall extending into the apex which may reverse on the resting images, but this is difficult to state for certain. Presence of bowel activity essentially makes assessment of the inferior wall nondiagnostic.. Calculated post stress ejection fraction 62%. No focal wall motion abnormality Impression: Nonischemic clinical response to pharmacologic stress, per cardiology report Nonischemic electrocardiographic response to pharmacologic stress, per cardiology report Limited and borderline nondiagnostic for evaluation of ischemia. Questionable reversible perfusion defect of the anteroseptal wall near the apex may indicate a small focus of ischemia. The inferior wall cannot be evaluated due to excessive bowel uptake Calculated post stress ejection fraction 62%
[2017-05-27 20:00] VITALS: BP 100/62
--- NOTE | 2017-05-27 20:44 | Cardiology Progress Note ---
Assessment/Plan Assessment/Plan 1. Pneumothorax, iatrogenic. 2. Lung mass. 3. Coronary artery disease, status post bare metal stent placement in the left anterior descending artery and circumflex artery in 12/2015. 4. History of deep venous thrombosis, on Xarelto. 5. Chronic obstructive pulmonary disease. 6. History of systolic dysfunction of mild degree with apical hypokinesis now with normal wall motion 7. History of deep venous thrombosis. 8. Tobacco use disord no sig or sx of acs at this time ekg no st changes echo now normal wall motion s/p pci 2016 trop below threshold but did increase a bit perfusion only small area of questionable sig proceed as palnne with lung surgery Subjective Cardiovascular: Denies: chest pain Respiratory: Denies: shortness of breath Gastrointestinal/Abdominal: Denies: abdominal pain Genitourinary: Denies: burning Objective Last 24 Hour Vital Signs Date Time Temp Pulse Resp B/P (MAP) Pulse Ox O2 Delivery O2 Flow Rate FiO2 05/27/17 20:15 95 Nasal Cannula 2.0 28 05/27/17 20:15 Nasal Cannula 2.0 28 05/27/17 16:09 115/65 05/27/17 16:00 75 05/27/17 16:00 97.7 88 20 115/67 92 Nasal Cannula 2.0 05/27/17 12:00 97.9 66 20 125/79 95 Nasal Cannula 2.0 05/27/17 12:00 66 05/27/17 09:00 65 132/81 05/27/17 08:57 65 05/27/17 08:00 97.5 65 20 132/81 95 Nasal Cannula 2.0 05/27/17 04:00 98.0 77 20 134/85 94 Nasal Cannula 2.0 05/27/17 04:00 77 05/27/17 00:10 73 05/27/17 00:00 98.4 77 20 111/69 94 Nasal Cannula 2.0 General Appearance: alert Neck: supple Cardiovascular: normal rate, regular rhythm Respiratory/Chest: lungs clear, normal breath sounds Abdomen: normal bowel sounds, non tender, soft Extremities: no swelling Intake and Output 05/27/17 05/28/17 19:00 07:00 Intake Total 960 ml Output Total 1375 ml Balance -415 ml Intake Oral 360 ml IV Total 600 ml Output Urine Total 1375 ml # Voids 5 Laboratory Tests Test 05/27/17 04:00 Troponin I 0.075 ng/mL (0.000-0.056) HALINA WEIR May 27, 2017 20:44
[2017-05-27] MEDS: Iron Sucrose 100 MG in NS 55 ML IV SCH (20:45)
[2017-05-28] VITALS: BP 102/64
[2017-05-28] MEDS: HYDROmorphone 1mg/ml Carpuject IVP PRN ×3 (01:00→07:56)
[2017-05-28 04:00] VITALS: BP 132/80
[2017-05-28 08:00] VITALS: BP 128/86
--- NOTE | 2017-05-28 08:55 | General Progress Note ---
Assessment/Plan Assessment/Plan (1) Intractable pain (2) Lung mass (3) Chest wall pain (4) Pneumothorax s/p chest tube placement (5) Multiple joint OA (6) Multiple joint pain Pt will be continued on [place] and Dilaudid D/w Dr. Pineda and he concurred. Subjective Date patient seen: May 28, 2017 Time patient seen: 07:30 - am Allergies: Coded Allergies: No Known Allergies (Unverified , 05/20/17) Subjective REVIEW OF SYSTEMS: Denies rash, fever, chills, sweating, dizziness, drowsiness, blurred vision, sore throat, or change in his weight. Denies nausea, vomiting, diarrhea, or blood in the stool or urine. No bowel or bladder incontinence. Complaining of shortness of breath and Generalized body pain. SUBJECTIVE: Patient is in bed and continues to c/o severe pain. The pain is reduced on the Dilaudid and [place] as needed. He has no new complaints. Objective Last 24 Hour Vital Signs Date Time Temp Pulse Resp B/P (MAP) Pulse Ox O2 Delivery O2 Flow Rate FiO2 05/28/17 08:00 98.2 70 18 128/86 96 Nasal Cannula 2.0 05/28/17 07:55 96 Nasal Cannula 2.0 28 05/28/17 07:55 Nasal Cannula 2.0 28 05/28/17 04:34 97.7 05/28/17 04:00 97.7 68 20 132/80 97 Nasal Cannula 2.0 05/28/17 04:00 68 05/28/17 00:00 97.7 75 20 102/64 97 Nasal Cannula 2.0 05/28/17 00:00 89 05/27/17 20:15 95 Nasal Cannula 2.0 28 05/27/17 20:15 Nasal Cannula 2.0 28 05/27/17 20:00 98.1 80 20 100/62 98 Nasal Cannula 2.0 05/27/17 20:00 79 05/27/17 16:09 115/65 05/27/17 16:00 75 05/27/17 16:00 97.7 88 20 115/67 92 Nasal Cannula 2.0 05/27/17 12:00 97.9 66 20 125/79 95 Nasal Cannula 2.0 05/27/17 12:00 66 12/13/17 09:00 65 132/81 12/13/17 08:57 65 Height (Feet): 5 Height (Inches): 9.00 Weight (Pounds): 130 Objective GENERAL: Alert, awake, and oriented. HEENT: PERRLA. NECK: Range of motion is full in all directions. No tenderness to paracervical muscles. No adenopathy. LUNGS: decreased breath sounds b/l with chest tube noted at right chest wall. HEART: Regular. ABDOMEN: Benign. BACK: Range of motion is decreased in flexion and extension with tenderness to paraspinal muscles. No tenderness to trapezius and rhomboid muscles. EXTREMITIES: No cyanosis. No clubbing. No edema. NEURO: No changes. BLANCA ROSS May 28, 2017 08:55
[2017-05-28] MEDS: Tamsulosin 0.4mg cap ORAL SCH ×2 (09:40→18:08)
[2017-05-28] MEDS: Lisinopril 20mg tab ORAL SCH (09:41)
[2017-05-28] MEDS: Heparin 5000 units/ml inj SUBQ SCH ×2 (09:42→20:34)
[2017-05-28] MEDS: Norco 10mg/325mg tab ORAL PRN ×2 (09:44→18:10)
--- NOTE | 2017-05-28 10:54 | Pulmonology Progress Note ---
Assessment/Plan Problems: (1) Lung mass (2) Renal stone (3) COPD (chronic obstructive pulmonary disease) (4) Hydronephrosis (5) Pneumothorax Assessment/Plan stress study negative doing better ct in place Dr. Ceron informed about pain management thoracoscopy is planned for tomorrow. ( rescheduled) Subjective ROS Limited/Unobtainable: No Constitutional: Reports: no symptoms HEENT: Repors: no symptoms Respiratory: Reports: no symptoms Allergies: Coded Allergies: No Known Allergies (Unverified , 05/20/17) Objective Last 24 Hour Vital Signs Date Time Temp Pulse Resp B/P (MAP) Pulse Ox O2 Delivery O2 Flow Rate FiO2 05/28/17 09:41 128/86 05/28/17 09:40 70 128/86 05/28/17 08:00 98.2 70 18 128/86 96 Nasal Cannula 2.0 05/28/17 07:55 96 Nasal Cannula 2.0 28 05/28/17 07:55 Nasal Cannula 2.0 28 05/28/17 07:34 82 05/28/17 04:34 97.7 05/28/17 04:00 97.7 68 20 132/80 97 Nasal Cannula 2.0 05/28/17 04:00 68 05/28/17 00:00 97.7 75 20 102/64 97 Nasal Cannula 2.0 05/28/17 00:00 89 05/27/17 20:15 95 Nasal Cannula 2.0 28 05/27/17 20:15 Nasal Cannula 2.0 28 05/27/17 20:00 98.1 80 20 100/62 98 Nasal Cannula 2.0 05/27/17 20:00 79 05/27/17 16:09 115/65 05/27/17 16:00 75 05/27/17 16:00 97.7 88 20 115/67 92 Nasal Cannula 2.0 05/27/17 12:00 97.9 66 20 125/79 95 Nasal Cannula 2.0 05/27/17 12:00 66 Intake and Output 05/28/17 05/29/17 19:00 07:00 Output Total 451 ml Balance -451 ml Output Urine Total 450 ml Stool Total 1 ml # Voids 2 Objective General Appearance: WD/WN Lines, tubes and drains: peripheral, HEENT: normocephalic, atraumatic Neck: non-tender, normal alignment Respiratory/Chest: chest wall non-tender, lungs clear, normal breath sounds Breasts: no masses Cardiovascular/Chest: normal rate Abdomen: normal bowel sounds Extremities: normal range of motion Current Medications Medications (Trade) Dose Ordered Sig/Katya Route PRN Reason Start Time Stop Time Status Last Admin Dose Admin Acetaminophen (Tylenol) 650 mg Q4H PRN ORAL T>100.5 05/25/17 17:00 06/20/17 16:59 Acetaminophen/ Hydrocodone Bitart ([place] 10/325) 1 ea Q6H PRN ORAL Moderate Breakthru Pain (5-7) 05/28/17 11:30 06/04/17 11:29 05/28/17 09:44 Al Hydroxide/Mg Hydroxide (Mylanta II) 30 ml Q6H PRN ORAL dyspepsia 05/25/17 17:00 06/20/17 16:59 Carvedilol (Coreg) 3.125 mg DAILY ORAL 05/26/17 09:00 06/20/17 08:59 05/28/17 09:40 Dextrose (Dextrose 50%) STAT PRN IV Hypoglycemia 05/25/17 17:00 06/24/17 16:59 Dextrose/Sodium Chloride 1,000 ml @ 75 mls/hr [id number] IV 05/25/17 17:00 06/20/17 16:59 05/27/17 22:01 Diphenhydramine HCl (Benadryl) 25 mg Q6H PRN ORAL Itching/Pruritis 05/25/17 17:00 06/20/17 16:59 Gabapentin (Neurontin) 300 mg THREE TIMES A DAY ORAL 05/25/17 18:00 06/24/17 08:59 05/28/17 09:40 Heparin Sodium (Porcine) (Heparin 5000 units/ml) 5,000 units EVERY 12 HOURS SUBQ 05/25/17 21:00 06/20/17 08:59 05/28/17 09:42 Hydromorphone HCl (Dilaudid) 1 mg Q4H PRN IVP Severe Pain (Pain Scale 7-10) 05/28/17 12:00 06/03/17 11:59 Iron Sucrose 100 mg/Sodium Chloride 60 ml @ 240 mls/hr BEDTIME IV 05/25/17 21:00 05/29/17 21:01 05/27/17 20:45 Lisinopril (Prinivil) 20 mg DAILY ORAL 05/26/17 09:00 06/20/17 08:59 05/28/17 09:41 Nitroglycerin (Ntg) 0.4 mg Q5M X 3 DOSES PRN SL Prn Chest Pain 05/25/17 16:45 06/20/17 05:59 Ondansetron HCl (Zofran) 4 mg Q6H PRN IVP Nausea & Vomiting 05/25/17 18:00 06/20/17 05:59 Polyethylene Glycol (Miralax) 17 gm HSPRN PRN ORAL Constipation 05/25/17 21:00 06/24/17 20:59 Tamsulosin HCl (Flomax) 0.4 mg BID ORAL 05/25/17 18:00 06/20/17 08:59 05/28/17 09:40 Temazepam (Restoril) 15 mg HSPRN PRN ORAL Insomnia 05/25/17 21:00 06/01/17 20:59 05/26/17 00:25 MAXIMILIANO COOLEY May 28, 2017 10:54
--- NOTE | 2017-05-28 11:01 | Cardiology Report ---
APPROVED REPORT EKG Measurement Heart [id number] Normal sinus rhythm Nonspecific ST abnormality Abnormal ECG
--- NOTE | 2017-05-28 11:02 | Cardiology Report ---
APPROVED REPORT EXAM: Two-dimensional and M-mode echocardiogram with Doppler and color Doppler. INDICATION CAD Technically difficult study due to poor acoustical windows. M-mode measurements not obtainable due to cardiac structure. Normal left ventricular chamber size, systolic function and wall motion. Left ventricular ejection fraction estimated to be 55-60%. No evidence of left ventricular hypertrophy. No evidence of pericardial or pleural effusion. Mild bi-atrial enlargement by 2D. Focal aortic valve sclerosis with adequate cusp excursion. Thickened mitral valve leaflets with normal excursion. Mild mitral annulus and aortic root calcification. Pulmonic valve not well visualized. Normal tricuspid valve structure. IVC is not obtainable. A color flow and spectral Doppler study was performed and revealed: No aortic regurgitation. No mitral regurgitation. Mitral diastolic velocities suggest reduced left ventricular relaxation c/w diastolic dysfunction grade 1. Trace tricuspid regurgitation. Tricuspid systolic velocities suggests peak right ventricular systolic pressure of 30 mmHg
--- NOTE | 2017-05-28 11:54 | 48 Hour Post Anesthesia Eval ---
Post Anesthesia Evaluation Procedure: Cystoscopy, right j-stent placement, retrograde pyelogram Date of Evaluation: May 28, 2017 Time of Evaluation: 11:53 Blood Pressure Systolic: 114 Pulse Rate: 85 Respiratory Rate: 15 Temperature (Fahrenheit): 98 O2 Sat by Pulse Oximetry: 99 Nausea: No Vomiting: No Hydration Status: adequate Mental Status/LOC: patient returned to baseline Post-Anesthesia Complications: none Follow-up care needed: patient intructions given Girma Yancey M.D. May 28, 2017 11:54
[2017-05-28 12:00] VITALS: BP 121/77
[2017-05-28] MEDS: D5 1/2NS 1,000 ML IV SCH (12:06)
[2017-05-28] MEDS: Hydromorphone 0.5mg/0.5ml inj IVP PRN ×3 (12:06→20:31)
--- NOTE | 2017-05-28 13:26 | Anethesia Preoperative Eval ---
Anesthesia Pre-op PMH/ROS General Date of Evaluation: May 28, 2017 Time of Evaluation: 10:55 Anesthesiologist: Mariela ASA Score: ASA 3 Mallampati Score Class I : Soft palate, uvula, fauces, pillars visible Class II: Soft palate, uvula, fauces visible Class III: Soft palate, base of uvula visible Class IV: Only hard plate visible Mallampati Classification: Class II Surgeon: Osmany Diagnosis: R pulmonary mass Surgical Procedure: Bronchoscopy VATS Anesthesia History: none Social History: current smoker - life long h/o heavy smoking Family History: no anesthesia problems Allergies: Coded Allergies: No Known Allergies (Unverified , 05/20/17) Medications: see eMAR Past Medical History Cardiovascular: Reports: HTN, CAD, [place] - non-ST 2016 2 stents in, Denies: valve dz, arrhythmia, other Pulmonary: Reports: COPD - severe h/o pneumonia, Denies: asthma, PUSHPA, other Gastrointestinal/Genitourinary: Reports: GERD, other - BPH, kidney stones, Denies: CRI, ESRD Neurologic/Psychiatric: Reports: depression/anxiety, Denies: dementia, CVA, TIA, other Endocrine: Denies: DM, hypothyroidism, steroids, other HEENT: Denies: cataract (L), cataract (R), glaucoma, [place] (L), [place] (R), other Hematology/Immune: Reports: anemia - severe anemia chronic d-s?, DVT - h/o Musculoskeletal/Integumentary: Reports: DJD, Denies: OA, RA, DDD, edema, other Other: other - malnourished PMH Narrative: as above, was admitted for acute pain related to passing kidney stone, ureteral stent was placed, R lung mass on chest X-ray and CT scan, percutaneous Bx attempt resulted in right pneumothorax. PSxH Narrative: Wrist Fx ORIF, coronary stents placement Anesthesia Pre-op Phys. Exam Physician Exam Last Vital Signs Date Time Temp Pulse Resp B/P (MAP) Pulse Ox O2 Delivery O2 Flow Rate FiO2 05/28/17 12:00 97.9 76 18 121/77 96 Nasal Cannula 2.0 05/28/17 07:55 28 Constitutional: other - mild dyspea at rest Neurologic: CN 2-12 intact Cardiovascular: RRR Respiratory: other - diminished breat sounds R>L difuse wheezig bilateraly Gastrointestinal: S/NT/ND Airway Exam Mallampati Score: Class II MO: limited Neck: stiff ROM: limited Teeth: missing Dentures: no upper, no lower Anesthesia Pre-op A/P Labs see chart Studies Pre-op Studies: EKG - see cardiology note, echo - EF >55% Risk Assessment & Plan Assessment: ASA 3 Severe COPD CAD with h/o [place] stable no recent symptoms. Pneumothorax. Severe anemia most likely secondary to chronic d-s, metastatic involvement of bone marrow can not be ruled out, hematology consult may be helpful. Hard to estimate functional capacity and compensatory reserve, without PFTS, which was requested by thoracic surgeon and was not done so far. Plan: If final decision will be to proceed with the case GA with lungs separation would be required, intraoperative blood transfusion as needed, ICU care postoperatively with possible respiratory support. MORENO STOLL M.D. May 28, 2017 13:26
[2017-05-28 16:00] VITALS: BP 129/80
[2017-05-28] MEDS ORDERED: D5 1/2NS 1000ml IV ONE ×2 (17:30→17:43)
--- NOTE | 2017-05-28 18:56 | Cardiology Progress Note ---
Assessment/Plan Assessment/Plan 1. Pneumothorax, iatrogenic. 2. Lung mass. 3. Coronary artery disease, status post bare metal stent placement in the left anterior descending artery and circumflex artery in 12/2015. 4. History of deep venous thrombosis, on Xarelto. 5. Chronic obstructive pulmonary disease. 6. History of systolic dysfunction of mild degree with apical hypokinesis now with normal wall motion 7. History of deep venous thrombosis. 8. Tobacco use disord no sig or sx of acs at this time ekg no st changes echo normal wall motion s/p pci 2016 trop below threshold perfusion only small area of questionable sig proceed as planned with lung surgery felt to be low intermediate risk not prohibitive asks for his pro air inhlaer Subjective Cardiovascular: Denies: chest pain, lightheadedness, palpitations Respiratory: Reports: shortness of breath Gastrointestinal/Abdominal: Denies: abdominal pain Genitourinary: Denies: burning Subjective nervous about the surgery tomorrow Objective Last 24 Hour Vital Signs Date Time Temp Pulse Resp B/P (MAP) Pulse Ox O2 Delivery O2 Flow Rate FiO2 05/28/17 16:00 92 05/28/17 16:00 97.8 90 18 129/80 96 Nasal Cannula 2.0 05/28/17 12:00 97.9 76 18 121/77 96 Nasal Cannula 2.0 05/28/17 11:54 85 15 99 05/28/17 11:39 76 05/28/17 09:41 128/86 05/28/17 09:40 70 128/86 05/28/17 08:00 98.2 70 18 128/86 96 Nasal Cannula 2.0 05/28/17 07:55 96 Nasal Cannula 2.0 05/28/17 07:55 Nasal Cannula 2.0 28 05/28/17 07:34 82 05/28/17 04:34 97.7 05/28/17 04:00 97.7 68 20 132/80 97 Nasal Cannula 2.0 05/28/17 04:00 68 05/28/17 00:00 97.7 75 20 102/64 97 Nasal Cannula 2.0 05/28/17 00:00 89 05/27/17 20:15 95 Nasal Cannula 2.0 28 05/27/17 20:15 Nasal Cannula 2.0 28 05/27/17 20:00 98.1 80 20 100/62 98 Nasal Cannula 2.0 05/27/17 20:00 79 General Appearance: alert Neck: no JVD Cardiovascular: regular rhythm Respiratory/Chest: decreased breath sounds Abdomen: normal bowel sounds, non tender, soft Extremities: no swelling Intake and Output 05/28/17 05/29/17 19:00 07:00 Intake Total 840 ml Output Total 1402 ml Balance -562 ml Intake Oral 840 ml Output Urine Total 1400 ml Stool Total 2 ml # Voids 2 # Bowel Movements 2 HALINA WEIR May 28, 2017 18:56
[2017-05-28] MEDS ORDERED: Albuterol 90mcg Inhaler 8gm INH PRN (19:00)
[2017-05-28 20:00] VITALS: BP 132/74
[2017-05-28] MEDS: Iron Sucrose 100 MG in NS 55 ML IV SCH (20:29)
[2017-05-29] VITALS (17 sets, daily range): BP systolic 107–154; BP diastolic 73–95
[2017-05-29] MEDS: D5 1/2NS 1,000 ML IV SCH ×2 (00:34→14:20)
[2017-05-29] MEDS: Hydromorphone 0.5mg/0.5ml inj IVP PRN ×4 (00:35→13:11)
[2017-05-29 06:14] LABS: BASOPHILS % (AUTO) 0.6 % (0.0-2.0); EOSINOPHILS % (AUTO) 4.7 % (0.0-3.0); LYMPHOCYTES % (AUTO) 19.4 % (20.0-45.0); MEAN CORPUSCULAR HEMOGLOBIN 23.8 PG (27.0-31.0); MEAN CORPUSCULAR HGB CONC 29.1 G/DL (32.0-36.0); MEAN CORPUSCULAR VOLUME 82 FL (80-99); MEAN PLATELET VOLUME 6.9 FL (6.5-10.1); MONOCYTES % (AUTO) 9.6 % (1.0-10.0); NEUTROPHILS % (AUTO) 65.8 % (45.0-75.0); PLATELET COUNT 177 K/UL (150-450); RED BLOOD COUNT 3.58 M/UL (4.70-6.10); RED CELL DISTRIBUTION WIDTH 20.4 % (11.6-14.8); WHITE BLOOD COUNT 6.8 K/UL (4.8-10.8)
[2017-05-29 06:20] LABS: PROTHROMBIN TIME 10.4 SEC (9.30-11.50)
[2017-05-29 06:41] LABS: ALANINE AMINOTRANSFERASE 56 U/L (12-78); ALBUMIN/GLOBULIN RATIO 0.6 (1.0-2.7); ANION GAP 1 mmol/L (5-15); ASPARTATE AMINO TRANSFERASE 17 U/L (15-37); CALCIUM 11.1 MG/DL (8.5-10.1); CARBON DIOXIDE 34 MMOL/L (21-32); CHLORIDE 104 MMOL/L (98-107); CREATININE 0.6 MG/DL (0.55-1.30); GLOMERULAR FILTRATION RATE > 60 mL/min (>60); MAGNESIUM 1.7 MG/DL (1.8-2.4); PHOSPHORUS 3.4 MG/DL (2.5-4.9); POTASSIUM 3.9 MMOL/L (3.5-5.1); SODIUM 139 MMOL/L (136-145); TOTAL PROTEIN 6.6 G/DL (6.4-8.2)
--- NOTE | 2017-05-29 06:49 | General Progress Note ---
Assessment/Plan Assessment/Plan (1) Intractable pain (2) Lung mass (3) Chest wall pain (4) Pneumothorax s/p chest tube placement (5) Multiple joint OA (6) Multiple joint pain Pt will be continued on [place] and Dilaudid D/w Dr. Pineda and he concurred. Subjective Date patient seen: May 29, 2017 Time patient seen: 06:00 - am Allergies: Coded Allergies: No Known Allergies (Unverified , 05/20/17) Subjective REVIEW OF SYSTEMS: Denies rash, fever, chills, sweating, dizziness, drowsiness, blurred vision, sore throat, or change in his weight. Denies nausea, vomiting, diarrhea, or blood in the stool or urine. No bowel or bladder incontinence. Complaining of shortness of breath and Generalized body pain. SUBJECTIVE: Patient reports that the pain has been stable and tolerated on the Dilaudid and [place]. He is scheduled for Thoracic surgery barring no complications. Objective Last 24 Hour Vital Signs Date Time Temp Pulse Resp B/P (MAP) Pulse Ox O2 Delivery O2 Flow Rate FiO2 05/29/17 04:27 86 20 95 Nasal Cannula 2.0 28 05/29/17 04:26 86 20 95 Nasal Cannula 2.0 28 05/29/17 04:00 92 05/29/17 04:00 98.1 89 20 118/74 98 Nasal Cannula 2.0 05/29/17 00:38 87 20 94 Nasal Cannula 2.0 28 05/29/17 00:37 87 20 94 Nasal Cannula 2.0 28 05/29/17 00:36 94 Nasal Cannula 2.0 05/29/17 00:03 Nasal Cannula 2.0 05/29/17 00:02 93 Nasal Cannula 2.0 05/29/17 00:00 90 05/29/17 00:00 98.6 87 20 139/87 98 Nasal Cannula 2.0 05/28/17 20:00 98.5 85 20 132/74 95 Nasal Cannula 2.0 05/28/17 20:00 85 05/28/17 16:00 92 05/28/17 16:00 97.8 90 18 129/80 96 Nasal Cannula 2.0 05/28/17 12:00 97.9 76 18 121/77 96 Nasal Cannula 2.0 05/28/17 11:54 85 15 99 05/28/17 11:39 76 05/28/17 09:41 128/86 05/28/17 09:40 70 128/86 05/28/17 08:00 98.2 70 18 128/86 96 Nasal Cannula 2.0 05/28/17 07:55 96 Nasal Cannula 2.0 28 05/28/17 07:55 Nasal Cannula 2.0 28 05/28/17 07:34 82 Laboratory Tests 05/29/17 04:00: White Blood Count 6.8, Red Blood Count 3.58L, Hemoglobin 8.5L, Hematocrit 29.3L , Mean Corpuscular Volume 82, Mean Corpuscular Hemoglobin 23.8L, Mean Corpuscular Hemoglobin Concent 29.1L, Red Cell Distribution Width 20.4H, Platelet Count 177, Mean Platelet Volume 6.9, Neutrophils (%) (Auto) 65.8, Lymphocytes (%) (Auto) 19.4L, Monocytes (%) (Auto) 9.6, Eosinophils (%) (Auto) 4.7H, Basophils (%) (Auto) 0.6, Prothrombin Time 10.4, Prothromb Time International Ratio 1.0, Activated Partial Thromboplast Time 36H, Sodium Level 139, Potassium Level 3.9, Chloride Level 104, Carbon Dioxide Level 34H, Anion Gap 1L, Blood Urea Nitrogen 16, Creatinine 0.6, Estimat Glomerular Filtration Rate > 60, Glucose Level 108H, Calcium Level 11.1H, Phosphorus Level 3.4, Magnesium Level 1.7L, Total Bilirubin 0.2, Aspartate Amino Transf (AST/SGOT) 17 , Alanine Aminotransferase (ALT/SGPT) 56, Alkaline Phosphatase 94, Total Protein 6.6, Albumin 2.6L, Globulin 4.0, Albumin/Globulin Ratio 0.6L Height (Feet): 5 Height (Inches): 8.00 Weight (Pounds): 130 Objective GENERAL: Alert, awake, and oriented. HEENT: PERRLA. NECK: Range of motion is full in all directions. No tenderness to paracervical muscles. No adenopathy. LUNGS: decreased breath sounds b/l with chest tube noted at right chest wall. HEART: Regular. ABDOMEN: Benign. BACK: Range of motion is decreased in flexion and extension with tenderness to paraspinal muscles. No tenderness to trapezius and rhomboid muscles. EXTREMITIES: No cyanosis. No clubbing. No edema. NEURO: No changes. BLANCA ROSS May 29, 2017 06:49
[2017-05-29] MEDS ORDERED: Neostigmine 1mg/ml 10ml Inj ONE (07:00)
[2017-05-29] MEDS ORDERED: fentaNYL 100 mcg/2 mL IV ONE (07:00)
[2017-05-29] MEDS ORDERED: Propofol 200mg/20ml IV ONE (07:00)
[2017-05-29] MEDS ORDERED: Zemuron 50mg/5ml Inj IV ONE (07:00)
[2017-05-29] MEDS ORDERED: Glycopyrrolate 0.2mg/ml 1ml Vial ONE (07:00)
[2017-05-29] MEDS ORDERED: Midazolam 2mg/2ml Inj ONE (07:00)
[2017-05-29] MEDS ORDERED: Succinylcholine 20mg/ml 10ml vial ONE (07:00)
[2017-05-29] MEDS: Lisinopril 20mg tab ORAL SCH (08:15)
[2017-05-29] MEDS: Tamsulosin 0.4mg cap ORAL SCH ×2 (08:15→21:01)
[2017-05-29] MEDS: Heparin 5000 units/ml inj SUBQ SCH (08:16)
--- NOTE | 2017-05-29 11:48 | Diagnostic Imaging Report ---
Indication: Dyspnea Technique: One view of the chest Comparison: none Findings: Right chest vent catheter is again demonstrated. No pneumothorax. Right lung nodule again demonstrated. Elevated left hemidiaphragm is unchanged. Impression: Unchanged, over 3 days, findings as above.
--- NOTE | 2017-05-29 12:28 | Pulmonology Progress Note ---
Assessment/Plan Assessment/Plan ASSESSMENT renal colic R hydronephrosis R nephrolithiasis s/p 05/22 cystoscopy woth R double J stent placement and fluoroscopy COPD/emphysema s/p biopsy of R lung nodule R lung mass R pneumothorax /iatrogenic tobacco abuse disorder elevated troponin CAD HTN multiple joint OA PLAN OF CARE LAM CT to suction ( PNT after lung biopsy) daily CXR O2 , titrate to keep sat above 92% pulmonary toilet cardiothoracic surgeon follows surgery today patient consented, NPO pain management , pain specialist follows, cardio follows clearance obtained prior to surgery per cardio ; no s/sx of ACS ECG no ST changes ECHO with normal wall motion s/p PCI 2016 troponin below threshold perfusion scan -only small area of questionable significance cardio recommended to proceed as planned with lung surgery , cardio felt to be low to intermediate risk, but not prohibitive ECHO with pEF 55-60% and RVSP of 30, hx of DVT, on Xarelto BP management with BB and OLGA LIDIA, stable monitor HH, transfuse to keep Hgb above 8 , s/p 1 u PRBC s/p Venofer Bowel regimen PT/OT case discussed and evaluated by supervising physician Subjective Allergies: Coded Allergies: No Known Allergies (Unverified , 05/20/17) Subjective awaiting fro VATS scheduled fro 1600 deneis chest pain, SOB Objective Last 24 Hour Vital Signs Date Time Temp Pulse Resp B/P (MAP) Pulse Ox O2 Delivery O2 Flow Rate FiO2 05/29/17 08:15 131/89 05/29/17 08:14 85 131/89 05/29/17 07:43 Nasal Cannula 2.0 05/29/17 07:43 95 Nasal Cannula 2.0 05/29/17 04:27 86 20 95 Nasal Cannula 2.0 28 05/29/17 04:26 86 20 95 Nasal Cannula 2.0 28 05/29/17 04:00 92 05/29/17 04:00 98.1 89 20 118/74 98 Nasal Cannula 2.0 05/29/17 00:38 87 20 94 Nasal Cannula 2.0 05/29/17 00:37 87 20 94 Nasal Cannula 2.0 05/29/17 00:36 94 Nasal Cannula 2.0 05/29/17 00:03 Nasal Cannula 2.0 05/29/17 00:02 93 Nasal Cannula 2.0 05/29/17 00:00 90 05/29/17 00:00 98.6 87 20 139/87 98 Nasal Cannula 2.0 05/28/17 20:00 98.5 85 20 132/74 95 Nasal Cannula 2.0 05/28/17 20:00 85 05/28/17 16:00 92 05/28/17 16:00 97.8 90 18 129/80 96 Nasal Cannula 2.0 General Appearance: no acute distress HEENT: normocephalic, atraumatic, anicteric, PERRL Respiratory/Chest: decreased breath sounds, other - CT to Pleurovac suction Cardiovascular: normal peripheral pulses, normal rate, regular rhythm, no JVD Abdomen: soft, non tender, non distended Extremities: no edema, pedal pulses normal Neurologic/Psychiatric: alert, oriented x 3, responsive Musculoskeletal: normal muscle bulk Laboratory Tests 05/29/17 04:00: White Blood Count 6.8, Red Blood Count 3.58L, Hemoglobin 8.5L, Hematocrit 29.3L , Mean Corpuscular Volume 82, Mean Corpuscular Hemoglobin 23.8L, Mean Corpuscular Hemoglobin Concent 29.1L, Red Cell Distribution Width 20.4H, Platelet Count 177, Mean Platelet Volume 6.9, Neutrophils (%) (Auto) 65.8, Lymphocytes (%) (Auto) 19.4L, Monocytes (%) (Auto) 9.6, Eosinophils (%) (Auto) 4.7H, Basophils (%) (Auto) 0.6, Prothrombin Time 10.4, Prothromb Time International Ratio 1.0, Activated Partial Thromboplast Time 36H, Sodium Level 139, Potassium Level 3.9, Chloride Level 104, Carbon Dioxide Level 34H, Anion Gap 1L, Blood Urea Nitrogen 16, Creatinine 0.6, Estimat Glomerular Filtration Rate > 60, Glucose Level 108H, Calcium Level 11.1H, Phosphorus Level 3.4, Magnesium Level 1.7L, Total Bilirubin 0.2, Aspartate Amino Transf (AST/SGOT) 17 , Alanine Aminotransferase (ALT/SGPT) 56, Alkaline Phosphatase 94, Total Protein 6.6, Albumin 2.6L, Globulin 4.0, Albumin/Globulin Ratio 0.6L Current Medications Medications (Trade) Dose Ordered Sig/Katya Route PRN Reason Start Time Stop Time Status Last Admin Dose Admin Acetaminophen (Tylenol) 650 mg Q4H PRN ORAL T>100.5 05/25/17 17:00 06/20/17 16:59 Acetaminophen/ Hydrocodone Bitart (Conner ) 1 ea Q6H PRN ORAL Moderate Breakthru Pain (5-7) 05/28/17 11:30 06/04/17 11:29 05/28/17 18:10 Al Hydroxide/Mg Hydroxide (Mylanta II) 30 ml Q6H PRN ORAL dyspepsia 05/25/17 17:00 06/20/17 16:59 Albuterol Sulfate (Proventil MDI) 2 puff Q4H PRN INH Shortness of Breath 05/28/17 19:00 06/27/17 18:59 05/29/17 00:00 Albuterol Sulfate (Proventil) 2.5 mg Q6HRT ONCE HHN 05/29/17 13:00 05/29/17 13:01 Carvedilol (Coreg) 3.125 mg DAILY ORAL 05/26/17 09:00 06/20/17 08:59 05/29/17 08:14 Dextrose (Dextrose 50%) STAT PRN IV Hypoglycemia 05/25/17 17:00 06/24/17 16:59 Dextrose/Sodium Chloride 1,000 ml @ 75 mls/hr [id number] IV 05/25/17 17:00 06/20/17 16:59 05/29/17 00:34 Diphenhydramine HCl (Benadryl) 25 mg Q6H PRN ORAL Itching/Pruritis 05/25/17 17:00 06/20/17 16:59 Gabapentin (Neurontin) 300 mg THREE TIMES A DAY ORAL 05/25/17 18:00 06/24/17 08:59 05/29/17 08:14 Heparin Sodium (Porcine) (Heparin 5000 units/ml) 5,000 units EVERY 12 HOURS SUBQ 05/25/17 21:00 06/20/17 08:59 05/28/17 09:42 Hydromorphone HCl (Dilaudid) 1 mg Q4H PRN IVP Severe Pain (Pain Scale 7-10) 05/28/17 12:00 06/03/17 11:59 05/29/17 09:09 Iron Sucrose 100 mg/Sodium Chloride 60 ml @ 240 mls/hr BEDTIME IV 05/25/17 21:00 05/29/17 21:01 05/28/17 20:29 Lisinopril (Prinivil) 20 mg DAILY ORAL 05/26/17 09:00 06/20/17 08:59 05/29/17 08:15 Nitroglycerin (Ntg) 0.4 mg Q5M X 3 DOSES PRN SL Prn Chest Pain 05/25/17 16:45 06/20/17 05:59 Ondansetron HCl (Zofran) 4 mg Q6H PRN IVP Nausea & Vomiting 05/25/17 18:00 06/20/17 05:59 Polyethylene Glycol (Miralax) 17 gm HSPRN PRN ORAL Constipation 05/25/17 21:00 06/24/17 20:59 Tamsulosin HCl (Flomax) 0.4 mg BID ORAL 05/25/17 18:00 06/20/17 08:59 05/29/17 08:15 Temazepam (Restoril) 15 mg HSPRN PRN ORAL Insomnia 05/25/17 21:00 06/01/17 20:59 05/29/17 02:03 [facility] Hospital[facility] Arellano NP May 29, 2017 12:28
[2017-05-29] MEDS ORDERED: Albuterol ud Inhalation HHN ONE (13:00)
[2017-05-29] MEDS ORDERED: Lidocaine 1% Plain 30 ml INJ ONE (15:50)
[2017-05-29] MEDS ORDERED: Cefepime 1gm vial ONE (15:50)
[2017-05-29] MEDS ORDERED: Bupivacaine 0.5% Inj 30 ml vial INJ ONE (15:51)
[2017-05-29] MEDS ORDERED: Lidocaine 1% 10mg/ml/Epi 0.005mg/ml 30ml vial INJ ONE (15:51)
[2017-05-29] MEDS ORDERED: NeoSporin Gu Irrig 1ml Amp IRRIG ONE (15:51)
[2017-05-29] MEDS ORDERED: Bacitracin 50000 Units Vial ONE (15:51)
[2017-05-29] MEDS ORDERED: Amikacin Rx to dose MISC PRN ×2 (16:45→22:00)
[2017-05-29] MEDS ORDERED: Bupivacaine 0.25% Inj 30ml INJ ONE (17:05)
--- NOTE | 2017-05-29 17:17 | Pre-Procedure Note/Attestation ---
Pre-Procedure Note/Attestation Complete Prior to Procedure Planned Procedure: right Indications for Procedure Pre-Operative Diagnosis: Right lung mass and pneumothorax Attestation I attest that I discussed the nature of the procedure; its benefits; risks and complications; and alternatives (and the risks and benefits of such alternatives ), prior to the procedure, with the patient (or the patient's legal associate financial representative). I attest that, if there was a reasonable possibility of needing a blood transfusion, the patient (or the patient's legal associate financial representative) was given the [facility] standardized written summary, pursuant to the [place] Blood Safety Act ([place] Health and Safety Code # 1645, as amended). I attest that I re-evaluated the patient just prior to the surgery and that there has been no change in the patient's H&P, except as documented below: MAGNOLIA VIERA M.D. May 29, 2017 17:17
[2017-05-29] MEDS ORDERED: Amikacin 900 MG in NS 110 ML IV SCH (18:00)
[2017-05-29] MEDS ORDERED: DiphenhydrAMINE 50mg/ml Inj IVP PRN (18:30)
[2017-05-29] MEDS ORDERED: Metoclopramide 10mg/2ml Inj IVP PRN (18:30)
[2017-05-29] MEDS ORDERED: fentaNYL 100 mcg/2 mL IV PRN (18:30)
[2017-05-29] MEDS ORDERED: Morphine Sulfate 2mg/ml Inj IVP PRN ×4 (18:30→23:15)
[2017-05-29] MEDS ORDERED: Midazolam 2mg/2ml Inj IVP PRN (18:30)
[2017-05-29 19:46] LABS: LYMPHOCYTES % (AUTO) 9.8 % (20.0-45.0); MEAN CORPUSCULAR HEMOGLOBIN 22.5 PG (27.0-31.0); MEAN CORPUSCULAR HGB CONC 27.4 G/DL (32.0-36.0); MEAN CORPUSCULAR VOLUME 82 FL (80-99); NEUTROPHILS % (AUTO) 80.2 % (45.0-75.0); PLATELET COUNT 157 K/UL (150-450); RED BLOOD COUNT 3.89 M/UL (4.70-6.10); RED CELL DISTRIBUTION WIDTH 20.9 % (11.6-14.8); WHITE BLOOD COUNT 10.9 K/UL (4.8-10.8)
[2017-05-29 20:06] LABS: ANION GAP 1 mmol/L (5-15); CALCIUM 10.3 MG/DL (8.5-10.1); CARBON DIOXIDE 34 MMOL/L (21-32); CHLORIDE 104 MMOL/L (98-107); CREATININE 0.5 MG/DL (0.55-1.30); GLOMERULAR FILTRATION RATE > 60 mL/min (>60); POTASSIUM 4.6 MMOL/L (3.5-5.1); SODIUM 139 MMOL/L (136-145)
[2017-05-29] MEDS ORDERED: Nitroglycerin Subl 0.4mg tab SL PRN (21:15)
[2017-05-29] MEDS ORDERED: Norco 5mg/325mg tab ORAL PRN ×2 (21:30)
[2017-05-29] MEDS ORDERED: Mylanta II UD 30ml ORAL PRN (21:30)
[2017-05-29] MEDS ORDERED: Miralax 17gm pkt ORAL PRN (21:30)
[2017-05-29] MEDS ORDERED: Albuterol ud Inhalation HHN PRN (21:30)
[2017-05-29] MEDS: Amikacin 900 MG in NS 110 ML IV SCH (21:35)
[2017-05-29] MEDS: Iron Sucrose 100 MG in NS 55 ML IV SCH (21:47)
[2017-05-29] MEDS: D5 1/2NS w/KCl 20mEq 1,000 ML IV SCH (21:47)
[2017-05-29] MEDS ORDERED: D5 1/2NS w/KCl 20mEq 1,000 ML IV SCH (22:00)
[2017-05-29] MEDS ORDERED: ceFAZolin sod 1 GM in D5W 55 ML IV SCH (22:00)
[2017-05-29] MEDS ORDERED: Ketorolac 60mg Inj IV PRN (23:15)
[2017-05-29] MEDS ORDERED: Ketorolac 30mg Inj IV PRN (23:30)
[2017-05-30] VITALS (24 sets, daily range): BP systolic 78–125; BP diastolic 45–76
[2017-05-30 00:07] LABS: APPEARANCE,URINE SLIGHTLY CLOUDY; KETONES,URINE NEGATIVE (NEGATIVE); LEUKOCYTE ESTERASE ,URINE 1+ (NEGATIVE); NITRITE,URINE NEGATIVE (NEGATIVE); PH,URINE 8 (4.5-8.0); PROTEIN,URINE 3+ (NEGATIVE); UROBILINOGEN,URINE NORMAL MG/DL (0.0-1.0)
[2017-05-30 00:17] LABS: RBC,URINE 40-60 /HPF (0 - 0); SQUAMOUS EPITHELIAL CELL,UR OCCASIONAL /LPF (NONE/OCC); WBC,URINE 0-2 /HPF (0 - 0)
[2017-05-30] MEDS: ceFAZolin sod 1 GM in D5W 55 ML IV SCH ×2 (00:35→08:02)
[2017-05-30] MEDS ORDERED: HYDROmorphone 1mg/ml Carpuject IVP PRN (05:45)
--- NOTE | 2017-05-30 06:02 | Operative Note - Dictated ---
DATE OF OPERATION: 05/29/2017 SURGEON: Chaparro Ceron M.D., speciality in Thoracic Surgery. PREOPERATIVE DIAGNOSES: 1. Right lower lobe lung nodule. 2. Right pneumothorax. POSTOPERATIVE DIAGNOSES: 1. Right lower lobe lung nodule. 2. Right pneumothorax. PROCEDURES PERFORMED: 1. Flexible bronchoscopy. 2. Right video-assisted thoracoscopic surgery. 3. Intrapleural pneumolysis. 4. Partial pleurectomy. 5. Superior segmentectomy. 6. Mechanical pleurodesis. 7. Intercostal nerve block. ANESTHESIA: Double-lumen general anesthesia. INDICATION: The patient is a 62-year-old male, who was admitted to [facility] with a right lower lobe nodule, for which he underwent a CT-guided biopsy. The patient was found to have a postprocedure right pneumothorax and Thoracic Surgery was then consulted for surgical intervention. The risks and benefits of the proposed operation were explained to the patient including, but not limited to, bleeding, infection, air leak, the need for blood transfusion, anesthetic complication, and less than 1%. In addition, alternatives versus no treatment options were also discussed. The patient fully understands the rationale behind the proposed operation with all questions answered to his satisfaction. DESCRIPTION OF PROCEDURE: After obtaining informed consent, the patient was then brought to the operating room and placed in a supine position and surgical time-out was performed. After induction of general anesthesia, SORIN hose stockings were placed. A flexible bronchoscope was introduced through the endotracheal tube. The trachea and aubrey were inspected. The aubrey was in the midline and sharp. The right tracheobronchial tree down to the subsegmental level was grossly normal and no endobronchial lesions were seen. Similarly, the left mainstem bronchus was intubated and no obvious endobronchial lesions were visualized at the subsegmental level. Minimal amount of mucopurulent secretion was lavaged and suctioned clear. The bronchoscope was pulled back and removed. The patient tolerated this procedure well with oxygen saturation greater than 96% throughout the procedure. Next, the patient was then placed in the left lateral decubitus position and prepped and draped in the usual sterile fashion. The patient also received preoperative intravenous antibiotics. A 1.5 cm incision was made at the fifth intercostal space. Dissection was carried down into the subcutaneous tissue. Entry into the right hemithorax was uneventful. A counter incision was made at the third intercostal space, this allowed the introduction of grasper into the right hemithorax. After placement of a Thoracoport as well as a video camera into the right chest, we then proceeded to examine the intrathoracic cavity. There was noted to be some adhesions tethering along the surrounding chest wall. These were taken down using a combination of sharp and blunt electrocauterization. After freeing the lung from the surrounding chest wall, we then proceeded to examine the parietal pleura. Areas of hardening in the lateral parietal pleura was seen and this piece of parietal pleura was then harvested and delivered off the surgical field as specimen. We then proceeded to palpate the nodule in the superior segment of the right lower lobe. Under direct visualization, the arterial branches to the superior segment were then transected. This was followed by transection of the superior segmental bronchus and the venous drainage of the superior segment. The entire superior segment was delivered off the field for frozen section. Frozen section of the superior segment demonstrated that it was adenocarcinoma. Since there was no preoperative pulmonary function tests performed, a decision was made not to perform the lobectomy at the present time. If the patient is deemed to be a surgical candidate, he can be arranged electively for a lobectomy. At this point, a mechanical pleurodesis was then performed using several bovie pads to induce localized inflammation into the right hemithorax. At the end of the procedure, 0.25% Marcaine 40 mL was used to perform an intercostal nerve block from 2nd-8th intercostal space in the usual fashion. A 28-Persian chest tube inserted into the right hemithorax and directly at the apex. The lung was allowed to inflate and the chest tube was anchored at the skin level using #0 Ethibond suture and then connected to a suction Pleur-evac. The wound was then reapproximated with two layers of 3-0 Vicryl and the skin was reapproximated with 4-0 Monocryl. Steri-Strips and dry dressing was applied. The patient tolerated the procedure well without any complications. Needle and sponges were correct at the end of the operation. The patient underwent extubation and transported to the recovery room in a satisfactory condition. ESTIMATED BLOOD LOSS: Minimal. COMPLICATIONS: None. SPECIMENS SUBMITTED: 1. Parietal pleura. 2. Superior segment of the right lower lobe. Wright M.D. DR: Sedrick JOB#: [id number] CC: [email or web address]
[2017-05-30 06:35] LABS: EOSINOPHILS % (AUTO) 1.2 % (0.0-3.0); LYMPHOCYTES % (AUTO) 10.2 % (20.0-45.0); MEAN CORPUSCULAR HEMOGLOBIN 24.8 PG (27.0-31.0); MEAN CORPUSCULAR HGB CONC 30.2 G/DL (32.0-36.0); MEAN CORPUSCULAR VOLUME 82 FL (80-99); MEAN PLATELET VOLUME 7.6 FL (6.5-10.1); MONOCYTES % (AUTO) 6.6 % (1.0-10.0); PLATELET COUNT 188 K/UL (150-450); RED BLOOD COUNT 3.99 M/UL (4.70-6.10); RED CELL DISTRIBUTION WIDTH 21.7 % (11.6-14.8); WHITE BLOOD COUNT 7.3 K/UL (4.8-10.8)
[2017-05-30 06:51] LABS: ANION GAP 2 mmol/L (5-15); CALCIUM 10.6 MG/DL (8.5-10.1); CARBON DIOXIDE 33 MMOL/L (21-32); CHLORIDE 104 MMOL/L (98-107); CREATININE 0.6 MG/DL (0.55-1.30); GLOMERULAR FILTRATION RATE > 60 mL/min (>60); POTASSIUM 4.3 MMOL/L (3.5-5.1); SODIUM 139 MMOL/L (136-145)
--- NOTE | 2017-05-30 08:03 | Pulmonolgy Critical Care Note ---
Critical Care - Asmt/Plan Assessment/Plan: ASSESSMENT renal colic R hydronephrosis R nephrolithiasis s/p 05/22 cystoscopy woth R double J stent placement and fluoroscopy COPD/emphysema s/p biopsy of R lung nodule adenocarcinoma R lung R pneumothorax /iatrogenic s/p 05/29 Flexible bronchoscopy with Right video-assisted thoracoscopic surgery , Intrapleural pneumolysis, Partial pleurectomy, Superior segmentectomy, Mechanical pleurodesis and Intercostal nerve block. tobacco abuse disorder elevated troponin CAD HTN multiple joint OA PLAN OF CARE ICU care s/p surgery frozen section demonstrated adenocarcinoma fup with pathology results CT to suction daily CXR empiric abx O2 titrate to keep sat above 92% pulmonary toilet pain management , pain specialist follows, per surgery: since no preoperative pulmonary function test was performed, a decision was made not to perform the lobectomy at the present time. If the patient is deemed to be a surgical candidate, he can be arranged electively for a lobectomy. cardio follows clearance obtained prior to surgery per cardio ; no s/sx of ACS ECG no ST changes ECHO with normal wall motion s/p PCI 2016 troponin below threshold perfusion scan -only small area of questionable significance cardio recommended to proceed as planned with lung surgery , cardio felt to be low to intermediate risk, but not prohibitive ECHO with pEF 55-60% and RVSP of 30, hx of DVT, on Xarelto BP management with BB and OLGA LIDIA, stable monitor HH, transfuse to keep Hgb above 8 , s/p 1 u PRBC s/p Venofer Bowel regimen PT/OT case discussed and evaluated by supervising physician Critical Care - Objective Last 24 Hour Vital Signs Date Time Temp Pulse Resp B/P (MAP) Pulse Ox O2 Delivery O2 Flow Rate FiO2 05/30/17 07:00 72 19 117/65 96 Nasal Cannula 3.0 05/30/17 06:40 Nasal Cannula 2.0 28 05/30/17 06:40 95 Nasal Cannula 2.0 28 05/30/17 06:40 71 18 Nasal Cannula 2.0 28 05/30/17 06:00 74 19 105/66 96 Nasal Cannula 3.0 05/30/17 05:00 74 19 93/58 96 Nasal Cannula 3.0 05/30/17 04:00 82 05/30/17 04:00 98.3 81 19 93/58 98 Nasal Cannula 3.0 05/30/17 03:00 83 19 104/61 96 Nasal Cannula 3.0 05/30/17 02:00 83 18 108/72 98 Nasal Cannula 3.0 05/30/17 01:00 90 14 92/58 99 Nasal Cannula 3.0 05/30/17 00:00 86 05/30/17 00:00 98.1 76 14 125/76 99 Nasal Cannula 3.0 05/29/17 23:00 86 14 154/95 99 Nasal Cannula 3.0 05/29/17 22:00 69 14 135/90 99 Nasal Cannula 3.0 05/29/17 21:00 66 14 117/73 99 Nasal Cannula 3.0 05/29/17 20:40 96 Nasal Cannula 2.0 28 05/29/17 20:40 72 19 Nasal Cannula 2.0 28 05/29/17 20:40 Nasal Cannula 2.0 28 05/29/17 20:35 97.9 65 14 115/78 97 Nasal Cannula 3.0 05/29/17 20:30 68 05/29/17 20:10 97.8 69 15 117/81 96 Nasal Cannula 3.0 05/29/17 20:02 97.8 05/29/17 19:55 70 19 124/87 97 Nasal Cannula 3.0 05/29/17 19:40 75 12 132/83 97 Nasal Cannula 3.0 05/29/17 19:30 80 16 125/85 97 Simple Mask 6.0 05/29/17 19:25 80 25 125/84 97 Simple Mask 6.0 05/29/17 19:20 82 25 107/78 97 Simple Mask 6.0 05/29/17 19:10 98.2 82 25 111/78 97 Simple Mask 6.0 05/29/17 15:30 98.8 74 20 150/73 97 Nasal Cannula 2.0 05/29/17 13:38 88 20 96 Nasal Cannula 2.0 28 05/29/17 12:00 61 05/29/17 12:00 97.6 72 20 139/85 95 Nasal Cannula 2.0 05/29/17 08:15 131/89 05/29/17 08:14 85 131/89 Status: awake - alertm oriented Condition: critical HEENT: atraumatic, normocephalic, other - O2 via NC Neck: full ROM Lungs: other - CT on the R to suction , BS with mdoerate air exchange Heart: HR/BP stable, regular - SR on tele Abdomen: soft, non-tender, active bowel sounds Extremities: no C/C/E Critical Care - Subjective ROS Limited/Unobtainable: Yes Interval Events: s/p VATS 05/29 afebrile, no leucocytosis no signs of respiratory distress + pain at incision site Condition: critical IV Access: peripheral EKG Rhythm: Sinus Rhythm FI02: 28 Sputum Amount: None CXR: CXR 05/30 -Postoperative appearance of the right lung with interval development of trace right pleural effusion. No definite pneumothorax. Subcutaneous emphysema of the right chest wall decreased. Lizeth Troy NP (Vanchtein) May 30, 2017 08:03
[2017-05-30] MEDS: Heparin 5000 units/ml inj SUBQ SCH ×2 (08:59→21:10)
[2017-05-30] MEDS: Lisinopril 20mg tab ORAL SCH (09:00)
[2017-05-30] MEDS ORDERED: Heparin 5000 units/ml inj SUBQ SCH (09:00)
[2017-05-30] MEDS: Tamsulosin 0.4mg cap ORAL SCH ×2 (09:00→17:07)
--- NOTE | 2017-05-30 10:52 | 48 Hour Post Anesthesia Eval ---
Post Anesthesia Evaluation Procedure: R VATS chest tube placement bronchoscopy Date of Evaluation: May 30, 2017 Time of Evaluation: 10:49 Blood Pressure Systolic: 94 0: 54 Pulse Rate: 76 Respiratory Rate: 22 Temperature (Fahrenheit): 97.6 O2 Sat by Pulse Oximetry: 98 Airway: patent Nausea: No Vomiting: No Pain Intensity: 3 Hydration Status: adequate Cardiopulmonary Status: comparatively stable no pressors O2 nasal canula saturation reasonable, mild dyspnea at rest Mental Status/LOC: patient returned to baseline Follow-up Care/Observations: n/a Post-Anesthesia Complications: none Follow-up care needed: N/A MORENO STOLL M.D. May 30, 2017 10:52
[2017-05-30] MEDS: D5 1/2NS w/KCl 20mEq 1,000 ML IV SCH (11:06)
--- NOTE | 2017-05-30 12:38 | Cardiology Progress Note ---
Assessment/Plan Assessment/Plan 1. Pneumothorax, iatrogenic. 2. Lung mass. 3. Coronary artery disease, status post bare metal stent placement in the left anterior descending artery and circumflex artery in 12/2015. 4. History of deep venous thrombosis, on Xarelto. 5. Chronic obstructive pulmonary disease. 6. History of systolic dysfunction of mild degree with apical hypokinesis now with normal wall motion 7. History of deep venous thrombosis. 8. Tobacco use disord no sig or sx of acs at this time echo normal wall motion s/p pci 201 perfusion only small area of questionable sig seem in icu looks good pain managment bp on the low side will give 250 cc bolus on ivf telel sinus d/w rn Subjective Cardiovascular: Denies: chest pain, palpitations Respiratory: Reports: shortness of breath Gastrointestinal/Abdominal: Denies: abdominal pain Genitourinary: Denies: burning Subjective righ t sided pain post op Objective Last 24 Hour Vital Signs Date Time Temp Pulse Resp B/P (MAP) Pulse Ox O2 Delivery O2 Flow Rate FiO2 05/30/17 12:00 65 05/30/17 12:00 98.5 68 16 87/54 100 Nasal Cannula 2.0 05/30/17 11:37 98.4 05/30/17 11:00 62 14 113/68 99 Nasal Cannula 2.0 05/30/17 10:52 76 22 98 05/30/17 10:06 98.4 05/30/17 10:00 60 15 97/58 93 Room Air 05/30/17 09:00 64 14 94/67 94 Nasal Cannula 3.0 05/30/17 09:00 113/71 05/30/17 08:59 73 113/71 05/30/17 08:32 98.4 05/30/17 08:00 70 05/30/17 08:00 98.4 79 14 113/71 96 Room Air 05/30/17 07:00 72 19 117/65 96 Nasal Cannula 3.0 05/30/17 06:40 Nasal Cannula 2.0 05/30/17 06:40 95 Nasal Cannula 2.0 28 05/30/17 06:40 71 18 Nasal Cannula 2.0 28 05/30/17 06:00 74 19 105/66 96 Nasal Cannula 3.0 05/30/17 05:00 74 19 93/58 96 Nasal Cannula 3.0 05/30/17 04:00 82 05/30/17 04:00 98.3 81 19 93/58 98 Nasal Cannula 3.0 05/30/17 03:00 83 19 104/61 96 Nasal Cannula 3.0 05/30/17 02:00 83 18 108/72 98 Nasal Cannula 3.0 05/30/17 01:00 90 14 92/58 99 Nasal Cannula 3.0 05/30/17 00:00 86 05/30/17 00:00 98.1 76 14 125/76 99 Nasal Cannula 3.0 05/29/17 23:00 86 14 154/95 99 Nasal Cannula 3.0 05/29/17 22:00 69 14 135/90 99 Nasal Cannula 3.0 05/29/17 21:00 66 14 117/73 99 Nasal Cannula 3.0 05/29/17 20:40 96 Nasal Cannula 2.0 28 05/29/17 20:40 72 19 Nasal Cannula 2.0 28 05/29/17 20:40 Nasal Cannula 2.0 28 05/29/17 20:35 97.9 65 14 115/78 97 Nasal Cannula 3.0 05/29/17 20:30 68 05/29/17 20:10 97.8 69 15 117/81 96 Nasal Cannula 3.0 05/29/17 20:02 97.8 05/29/17 19:55 70 19 124/87 97 Nasal Cannula 3.0 05/29/17 19:40 75 12 132/83 97 Nasal Cannula 3.0 05/29/17 19:30 80 16 125/85 97 Simple Mask 6.0 05/29/17 19:25 80 25 125/84 97 Simple Mask 6.0 05/29/17 19:20 82 25 107/78 97 Simple Mask 6.0 05/29/17 19:10 98.2 82 25 111/78 97 Simple Mask 6.0 05/29/17 15:30 98.8 74 20 150/73 97 Nasal Cannula 2.0 05/29/17 13:38 88 20 96 Nasal Cannula 2.0 28 General Appearance: alert Neck: no JVD Cardiovascular: normal rate, regular rhythm Respiratory/Chest: lungs clear, normal breath sounds Abdomen: normal bowel sounds, non tender, soft Extremities: no swelling Intake and Output 05/30/17 05/31/17 19:00 07:00 Intake Total 285 ml Output Total 625 ml Balance -340 ml Intake Oral 30 ml IV Total 205 ml Other 50 ml Output Urine Total 625 ml Laboratory Tests Test 05/29/17 19:35 05/29/17 23:30 05/30/17 06:10 05/30/17 09:40 White Blood Count 10.9 K/UL (4.8-10.8) #H 7.3 K/UL (4.8-10.8) Red Blood Count 3.89 M/UL (4.70-6.10) L 3.99 M/UL (4.70-6.10) L Hemoglobin 8.8 G/DL (14.2-18.0) L 9.9 G/DL (14.2-18.0) L Hematocrit 32.0 % (42.0-52.0) L 32.8 % (42.0-52.0) L Mean Corpuscular Volume 82 FL (80-99) 82 FL (80-99) Mean Corpuscular Hemoglobin 22.5 PG (27.0-31.0) L 24.8 PG (27.0-31.0) L Mean Corpuscular Hemoglobin Concent 27.4 G/DL (32.0-36.0) L 30.2 G/DL (32.0-36.0) L Red Cell Distribution Width 20.9 % (11.6-14.8) H 21.7 % (11.6-14.8) H Platelet Count 157 K/UL (150-450) 188 K/UL (150-450) Mean Platelet Volume 6.0 FL (6.5-10.1) L 7.6 FL (6.5-10.1) Neutrophils (%) (Auto) 80.2 % (45.0-75.0) H 80.0 % (45.0-75.0) H Lymphocytes (%) (Auto) 9.8 % (20.0-45.0) L 10.2 % (20.0-45.0) L Monocytes (%) (Auto) 6.0 % (1.0-10.0) 6.6 % (1.0-10.0) Eosinophils (%) (Auto) 3.0 % (0.0-3.0) 1.2 % (0.0-3.0) Basophils (%) (Auto) 1.0 % (0.0-2.0) 2.0 % (0.0-2.0) Sodium Level 139 MMOL/L (136-145) 139 MMOL/L (136-145) Potassium Level 4.6 MMOL/L (3.5-5.1) 4.3 MMOL/L (3.5-5.1) Chloride Level 104 MMOL/L (98-107) 104 MMOL/L (98-107) Carbon Dioxide Level 34 MMOL/L (21-32) H 33 MMOL/L (21-32) H Anion Gap 1 mmol/L (5-15) L 2 mmol/L (5-15) L Blood Urea Nitrogen 10 mg/dL (7-18) 8 mg/dL (7-18) Creatinine 0.5 MG/DL (0.55-1.30) L 0.6 MG/DL (0.55-1.30) Estimat Glomerular Filtration Rate > 60 mL/min (>60) > 60 mL/min (>60) Glucose Level 94 MG/DL (74-106) 100 MG/DL (74-106) Calcium Level 10.3 MG/DL (8.5-10.1) H 10.6 MG/DL (8.5-10.1) H Urine Color Pale yellow Urine Appearance Slightly cloudy Urine pH 8 (4.5-8.0) Urine Specific [place] 1.015 (1.005-1.035) Urine Protein 3+ (NEGATIVE) H Urine Glucose (UA) Negative (NEGATIVE) Urine Ketones Negative (NEGATIVE) Urine Occult Blood 5+ (NEGATIVE) H Urine Nitrite Negative (NEGATIVE) Urine Bilirubin Negative (NEGATIVE) Urine Urobilinogen Normal MG/DL (0.0-1.0) Urine Leukocyte Esterase 1+ (NEGATIVE) H Urine RBC 40-60 /HPF (0 - 0) H Urine WBC 0-2 /HPF (0 - 0) Urine Squamous Epithelial Cells Occasional /LPF Urine Bacteria None /HPF (NONE) Random Amikacin Level Pending HALINA WEIR May 30, 2017 12:38
--- NOTE | 2017-05-30 12:55 | Diagnostic Imaging Report ---
Indication: Postoperative Technique: XRAY Chest 1v Comparison: 05/29/2017 Findings: Right apically oriented chest tube noted. There is mild right chest wall subcutaneous emphysema. There is seen right lung nodule not definitively visualized. There is no definite pneumothorax. Heart size and mediastinal contours are stable. There is unchanged elevation of the left hemidiaphragm with adjacent streaky atelectasis/scarring. Osseous structures are stable. Impression: Interval thoracic surgery and right chest tube placement with expected subcutaneous some edema along the right chest wall. No definite pneumothorax.
--- NOTE | 2017-05-30 12:57 | Diagnostic Imaging Report ---
Indication: Postoperative Technique: XRAY Chest 1v Comparison: 05/29/2017 Findings: Postoperative change of the right lung. Right chest tube unchanged in position. Interval decrease in subcutaneous emphysema in the right chest wall. Slight blunting of the right costophrenic sulcus reflective of trace right pleural effusion. No definite pneumothorax. Heart size and mediastinal contours are stable. Unchanged elevation of the left hemidiaphragm with left basilar atelectasis/scarring. Impression: Postoperative appearance of the right lung with interval development of trace right pleural effusion. No definite pneumothorax. Subcutaneous emphysema of the right chest wall decreased.
[2017-05-30] MEDS ORDERED: Sodium Chloride 500ML 250 ML IV ONE (13:00)
--- NOTE | 2017-05-30 15:48 | Brief Operative Note ---
Immediate Post Operative Note Operative Note Pre-op Diagnosis: Right lung mass and pneumothorax Procedure: R VATS, DANYELLE, LLL segmentectomy, mechanical pleurodesis & nerve block Post-op Diagnosis: same as pre-op Surgeon: Osmany Anesthesia: general Specimen: yes Complications: none Condition: stable Fluids: 75 cc/hr Estimated Blood Loss: minimal Drains: other Implant(s) used?: No MAGNOLIA VIERA M.D. May 30, 2017 15:47
[2017-05-30] MEDS ORDERED: Tubing IV Secondary IV ONE ×2 (16:08→16:21)
[2017-05-30] MEDS ORDERED: Sterile Water Irrig 1000ml IRRIG ONE (16:21)
[2017-05-30] MEDS ORDERED: D5 1/2NS 1000ml IV ONE (16:21)
[2017-05-30] MEDS: Amikacin 900 MG in NS 110 ML IV SCH (21:50)
[2017-05-31] VITALS (16 sets, daily range): BP systolic 88–139; BP diastolic 54–96
[2017-05-31 05:52] LABS: BASOPHILS % (AUTO) 1.9 % (0.0-2.0); EOSINOPHILS % (AUTO) 4.5 % (0.0-3.0); LYMPHOCYTES % (AUTO) 20.5 % (20.0-45.0); MEAN CORPUSCULAR HEMOGLOBIN 24.1 PG (27.0-31.0); MEAN CORPUSCULAR HGB CONC 29.2 G/DL (32.0-36.0); MEAN CORPUSCULAR VOLUME 83 FL (80-99); MEAN PLATELET VOLUME 7.2 FL (6.5-10.1); MONOCYTES % (AUTO) 11.3 % (1.0-10.0); NEUTROPHILS % (AUTO) 61.9 % (45.0-75.0); PLATELET COUNT 178 K/UL (150-450); RED BLOOD COUNT 3.55 M/UL (4.70-6.10); RED CELL DISTRIBUTION WIDTH 22.5 % (11.6-14.8); WHITE BLOOD COUNT 6.7 K/UL (4.8-10.8)
[2017-05-31] MEDS: Morphine Sulfate 2mg/ml Inj IVP PRN ×2 (06:19→10:26)
[2017-05-31 06:25] LABS: ANION GAP 3 mmol/L (5-15); CALCIUM 10.5 MG/DL (8.5-10.1); CARBON DIOXIDE 31 MMOL/L (21-32); CHLORIDE 104 MMOL/L (98-107); CREATININE 0.6 MG/DL (0.55-1.30); GLOMERULAR FILTRATION RATE > 60 mL/min (>60); POTASSIUM 4.1 MMOL/L (3.5-5.1); SODIUM 138 MMOL/L (136-145)
--- NOTE | 2017-05-31 07:46 | Pulmonolgy Critical Care Note ---
Critical Care - Asmt/Plan Assessment/Plan: ASSESSMENT renal colic R hydronephrosis R nephrolithiasis s/p 05/22 cystoscopy woth R double J stent placement and fluoroscopy COPD/emphysema s/p biopsy of R lung nodule adenocarcinoma R lung R pneumothorax /iatrogenic s/p 05/29 Flexible bronchoscopy with Right video-assisted thoracoscopic surgery , Intrapleural pneumolysis, Partial pleurectomy, Superior segmentectomy, Mechanical pleurodesis. and Intercostal nerve block. tobacco abuse disorder elevated troponin CAD HTN multiple joint OA PLAN OF CARE ICU care s/p surgery frozen section demonstrated adenocarcinoma fup with pathology results CT to suction daily CXR empiric abx O2 titrate to keep sat above 92% pulmonary toilet pain management , pain specialist follows, per surgery: since no preoperative pulmonary function test was performed, a decision was made not to perform the lobectomy at the present time. If the patient is deemed to be a surgical candidate, he can be arranged electively for a lobectomy. cardio follows clearance obtained prior to surgery per cardio ; no s/sx of ACS ECG no ST changes ECHO with normal wall motion s/p PCI 2016 troponin below threshold perfusion scan -only small area of questionable significance cardio recommended to proceed as planned with lung surgery , cardio felt to be low to intermediate risk, but not prohibitive ECHO with pEF 55-60% and RVSP of 30, hx of DVT, BP management with BB and OLGA LIDIA, stable monitor HH, transfuse to keep Hgb above 8 , s/p 1 u PRBC s/p Venofer Bowel regimen PT/OT DVT prophylaxis transfer to tele addendum: CT just dc by CT surgeon transfer to tele CXR in am dc plan case discussed and evaluated by supervising physician Critical Care - Objective Last 24 Hour Vital Signs Date Time Temp Pulse Resp B/P (MAP) Pulse Ox O2 Delivery O2 Flow Rate FiO2 05/31/17 07:00 95 Nasal Cannula 2.0 28 05/31/17 07:00 Nasal Cannula 2.0 28 05/31/17 06:59 76 18 Nasal Cannula 2.0 28 05/31/17 06:00 82 18 94/56 94 Nasal Cannula 2.0 05/31/17 05:00 74 18 95/58 97 Nasal Cannula 2.0 05/31/17 04:00 98.0 74 14 93/58 97 Nasal Cannula 2.0 05/31/17 04:00 95 05/31/17 03:00 77 26 88/56 97 Nasal Cannula 2.0 05/31/17 02:00 82 24 89/58 97 Nasal Cannula 2.0 05/31/17 01:00 96 18 92/60 96 Nasal Cannula 2.0 05/31/17 00:00 98.1 93 18 105/64 94 Nasal Cannula 2.0 05/31/17 00:00 94 05/30/17 23:00 87 17 86/48 95 Nasal Cannula 2.0 05/30/17 22:00 89 18 100/64 93 Nasal Cannula 2.0 05/30/17 21:00 76 13 85/55 96 Nasal Cannula 2.0 05/30/17 20:00 83 05/30/17 20:00 98.0 80 16 101/68 94 Nasal Cannula 2.0 05/30/17 19:30 90 18 Nasal Cannula 2.0 28 05/30/17 19:30 94 Nasal Cannula 2.0 28 05/30/17 19:30 Nasal Cannula 2.0 28 05/30/17 19:00 83 14 86/50 97 Nasal Cannula 2.0 05/30/17 18:00 81 14 95/51 95 Nasal Cannula 2.0 05/30/17 17:00 72 16 98/58 98 Nasal Cannula 2.0 05/30/17 16:38 98.5 05/30/17 16:00 98.4 85 19 98/60 96 Nasal Cannula 2.0 05/30/17 16:00 78 05/30/17 15:00 75 16 83/49 97 Nasal Cannula 2.0 05/30/17 14:00 76 14 78/52 99 Nasal Cannula 2.0 05/30/17 13:00 80 14 99/45 100 Nasal Cannula 2.0 05/30/17 12:00 65 05/30/17 12:00 98.5 68 16 87/54 100 Nasal Cannula 2.0 05/30/17 11:00 62 14 113/68 99 Nasal Cannula 2.0 05/30/17 10:52 76 22 98 05/30/17 10:06 98.4 05/30/17 10:00 60 15 97/58 93 Room Air 05/30/17 09:00 64 14 94/67 94 Nasal Cannula 3.0 05/30/17 09:00 113/71 05/30/17 08:59 73 /05/30/17 08:32 98.4 05/30/17 08:00 70 05/30/17 08:00 98.4 79 14 / 96 Room Air Objective: Status: awake - alert, oriented Condition: critical HEENT: atraumatic, normocephalic, O2 via NC Neck: full ROM Lungs: other - CT on the R to suction , BS with moderate air exchange Heart: HR/BP stable, regular - SR on tele Abdomen: soft, non-tender, active bowel sounds Extremities: no C/C/E Critical Care - Subjective Interval Events: no signs of respiratory distress on o2 via NC pulse ox stable CT drainage decreasing -130 ml no chest pain, + pain at incisional site, intermittent controlled with current analgesic regimen afebrile, no leukocytosis HH trending down Condition: critical, improving IV Access: peripheral EKG Rhythm: Sinus Rhythm FI02: 28 Sputum Amount: None CXR: CXR 05/30 - Postoperative appearance of the right lung with interval development of trace right pleural effusion. No definite pneumothorax. Subcutaneous emphysema of the right chest wall decreased. Lizeth Troy NP ([place]) May 31, 2017 07:46
[2017-05-31] MEDS ORDERED: Albuterol/Ipratropium 3ml neb HHN PRN ×2 (08:00→16:00)
[2017-05-31] MEDS: Tamsulosin 0.4mg cap ORAL SCH ×2 (08:20→17:09)
[2017-05-31] MEDS: Lisinopril 20mg tab ORAL SCH (08:21)
[2017-05-31] MEDS: Heparin 5000 units/ml inj SUBQ SCH ×2 (08:26→21:22)
[2017-05-31 08:41] LABS: ABG ALLEN TEST POSITIVE; ABG BASE EXCESS 2.2; ABG PCO2 45.2 mmHg (35.0-45.0)
--- NOTE | 2017-05-31 12:11 | Cardiology Progress Note ---
Assessment/Plan Assessment/Plan 1. Pneumothorax, iatrogenic. 2. Lung mass. 3. Coronary artery disease, status post bare metal stent placement in the left anterior descending artery and circumflex artery in 12/2015. 4. History of deep venous thrombosis, on Xarelto. 5. Chronic obstructive pulmonary disease. 6. History of systolic dysfunction of mild degree with apical hypokinesis now with normal wall motion 7. History of deep venous thrombosis. 8. Tobacco use disord no sig or sx of acs at this time echo normal wall motion s/p pci perfusion only small area of questionable sig pain managment bp borderline will given another bolus of ivf on ivf telel sinus d/w rn may need snf on d/c Subjective Cardiovascular: Denies: lightheadedness Respiratory: Denies: shortness of breath Gastrointestinal/Abdominal: Denies: abdominal pain Genitourinary: Denies: burning Subjective still with some right sided pain post op Objective Last 24 Hour Vital Signs Date Time Temp Pulse Resp B/P (MAP) Pulse Ox O2 Delivery O2 Flow Rate FiO2 05/31/17 11:30 97.2 05/31/17 11:00 86 15 99/62 94 Nasal Cannula 2.0 05/31/17 10:00 85 19 98/54 94 Nasal Cannula 2.0 05/31/17 09:00 97.1 05/31/17 09:00 82 96/57 05/31/17 09:00 82 15 96/57 95 Nasal Cannula 2.0 05/31/17 08:21 103/61 05/31/17 08:00 84 05/31/17 08:00 98.2 84 18 102/64 95 Nasal Cannula 2.0 05/31/17 07:00 95 Nasal Cannula 2.0 28 05/31/17 07:00 Nasal Cannula 2.0 28 05/31/17 07:00 81 18 90/55 96 Nasal Cannula 2.0 05/31/17 06:59 76 18 Nasal Cannula 2.0 28 05/31/17 06:00 82 18 94/56 94 Nasal Cannula 2.0 05/31/17 05:00 74 18 95/58 97 Nasal Cannula 2.0 05/31/17 04:00 98.0 74 14 93/58 97 Nasal Cannula 2.0 05/31/17 04:00 95 05/31/17 03:00 77 26 88/56 97 Nasal Cannula 2.0 05/31/17 02:00 82 24 89/58 97 Nasal Cannula 2.0 05/31/17 01:00 96 18 92/60 96 Nasal Cannula 2.0 05/31/17 00:00 98.1 93 18 105/64 94 Nasal Cannula 2.0 05/31/17 00:00 94 05/30/17 23:00 87 17 86/48 95 Nasal Cannula 2.0 05/30/17 22:00 89 18 100/64 93 Nasal Cannula 2.0 05/30/17 21:00 76 13 85/55 96 Nasal Cannula 2.0 05/30/17 20:00 83 05/30/17 20:00 98.0 80 16 101/68 94 Nasal Cannula 2.0 05/30/17 19:30 90 18 Nasal Cannula 2.0 28 05/30/17 19:30 94 Nasal Cannula 2.0 28 05/30/17 19:30 Nasal Cannula 2.0 28 05/30/17 19:00 83 14 86/50 97 Nasal Cannula 2.0 05/30/17 18:00 81 14 95/51 95 Nasal Cannula 2.0 05/30/17 17:00 72 16 98/58 98 Nasal Cannula 2.0 05/30/17 16:00 98.4 85 19 98/60 96 Nasal Cannula 2.0 05/30/17 16:00 78 05/30/17 15:00 75 16 83/49 97 Nasal Cannula 2.0 05/30/17 14:00 76 14 78/52 99 Nasal Cannula 2.0 05/30/17 13:00 80 14 99/45 100 Nasal Cannula 2.0 General Appearance: no apparent distress, alert Neck: supple Cardiovascular: normal rate Respiratory/Chest: decreased breath sounds Abdomen: normal bowel sounds, non tender, soft Extremities: no swelling Intake and Output 05/31/17 06/01/17 19:00 07:00 Intake Total 420 ml Output Total 475 ml Balance -55 ml Intake Oral 420 ml Output Urine Total 475 ml Laboratory Tests Test 05/31/17 05:20 05/31/17 08:30 White Blood Count 6.7 K/UL (4.8-10.8) Red Blood Count 3.55 M/UL (4.70-6.10) L Hemoglobin 8.5 G/DL (14.2-18.0) L Hematocrit 29.3 % (42.0-52.0) L Mean Corpuscular Volume 83 FL (80-99) Mean Corpuscular Hemoglobin 24.1 PG (27.0-31.0) L Mean Corpuscular Hemoglobin Concent 29.2 G/DL (32.0-36.0) L Red Cell Distribution Width 22.5 % (11.6-14.8) H Platelet Count 178 K/UL (150-450) Mean Platelet Volume 7.2 FL (6.5-10.1) Neutrophils (%) (Auto) 61.9 % (45.0-75.0) Lymphocytes (%) (Auto) 20.5 % (20.0-45.0) Monocytes (%) (Auto) 11.3 % (1.0-10.0) H Eosinophils (%) (Auto) 4.5 % (0.0-3.0) H Basophils (%) (Auto) 1.9 % (0.0-2.0) Sodium Level 138 MMOL/L (136-145) Potassium Level 4.1 MMOL/L (3.5-5.1) Chloride Level 104 MMOL/L (98-107) Carbon Dioxide Level 31 MMOL/L (21-32) Anion Gap 3 mmol/L (5-15) L Blood Urea Nitrogen 17 mg/dL (7-18) Creatinine 0.6 MG/DL (0.55-1.30) Estimat Glomerular Filtration Rate > 60 mL/min (>60) Glucose Level 132 MG/DL (74-106) H Calcium Level 10.5 MG/DL (8.5-10.1) H Total Creatine Kinase 125 U/L (26-308) Arterial Blood pH 7.400 (7.350-7.450) Arterial Blood Partial Pressure CO2 45.2 mmHg (35.0-45.0) H Arterial Blood Partial Pressure O2 68.8 mmHg (75.0-100.0) L Arterial Blood HCO3 27.4 mmol/L (22.0-26.0) H Arterial Blood Oxygen Saturation 92.8 % (92.0-98.0) Arterial Blood Base Excess 2.2 Stu Test Positive HALINA WEIR May 31, 2017 12:11
[2017-05-31] MEDS ORDERED: Sodium Chloride 500ML 500 ML IV ONE (12:30)
--- NOTE | 2017-05-31 13:44 | Diagnostic Imaging Report ---
Indication: Status post chest tube removal Technique: XRAY Chest 1v Comparison: Earlier the same day. Findings/ Impression: No definite pneumothorax status post chest tube removal. Additional findings without significant interval change from the exam a few hours prior.
--- NOTE | 2017-05-31 13:47 | Diagnostic Imaging Report ---
Indication: Dyspnea Technique: XRAY Chest 1v Comparison: 05/30/2017 Findings: Postoperative change of the right lung. Right chest tube unchanged in position. There is minimal subcutaneous emphysema of the right chest wall, decreased from the prior exam. Trace right pleural effusion is stable. There is no definite pneumothorax. No definite pneumothorax. Heart size and mediastinal contours are stable. Unchanged elevation of the left hemidiaphragm with left basilar atelectasis/scarring. Impression: No significant interval change in appearance of the heart and lungs compared to one day prior.
--- NOTE | 2017-05-31 14:20 | Cardiology Report ---
APPROVED REPORT EKG Measurement Heart [id number] Sinus rhythm with occasional premature ventricular complexes Increased R/S ratio in V1, consider early transition or posterior infarct Abnormal ECG
[2017-05-31] MEDS ORDERED: Nitroglycerin Subl 0.4mg tab SL PRN (15:00)
[2017-05-31] MEDS ORDERED: Mylanta II UD 30ml ORAL PRN (16:00)
[2017-05-31] MEDS ORDERED: Amikacin Rx to dose MISC PRN (16:00)
[2017-05-31] MEDS ORDERED: Morphine Sulfate 2mg/ml Inj IVP PRN (16:00)
[2017-05-31] MEDS ORDERED: NS 500ML ONE (17:38)
[2017-05-31] MEDS ORDERED: Ketorolac 30mg Inj IV PRN (18:00)
[2017-05-31] MEDS: Norco 5mg/325mg tab ORAL PRN (20:00)
--- NOTE | 2017-05-31 20:52 | Wound Care Consultation ---
Wound Assessment Wound Assessment #1: Wound Present on Admission: No New Wound: Yes Status Change of Wound: No Wound Location Body Site Modif: right Wound Location Body Site: sacral Wound Type: pressure ulcer Dominik Test: Does not Dominik Pressure Ulcer Stage: Deep Tissue Injury Wound Thickness: Full Thickness Wound Length: 3.0 Wound Width: 3.0 Wound Depth: utd Percent of Wound Purple/Maroon: 100 Wound Drainage Amount: None Wound Drainage Odor: None/Absent Tissue Surrounding Wound: Intact Wound General Appearance: Reddened - purple Wound Assessment #2: Wound Number: 2 Wound Present on Admission: No New Wound: Yes Status Change of Wound: No Wound Location Body Site Modif: mid Wound Location Body Site: sacral Wound Type: pressure ulcer Dominik Test: Does not Dominik Pressure Ulcer Stage: Deep Tissue Injury Wound Thickness: Full Thickness Wound Length: 2.5 Wound Width: 2.5 Wound Depth: utd Percent of Wound Purple/Maroon: 100 Wound Drainage Amount: None Wound Drainage Odor: None/Absent Tissue Surrounding Wound: Erythemic Wound General Appearance: Reddened - purple Wound Comment #1 Mid sacral area DTI pressure ulcer. Skin still intact. Will cont same wound care order #2 Left sacral area stage I pressure ulcer. Resolved #3 Right sacral area DTI pressure ulcer. Skin still intact. Will cont same wound care order Reassessed this Pt today. No deterioration noted at this time. Will cont wound care per protocol and pressure ulcer preventative recommendations below Recommendation -Local wound care per protocol -Keep clean and dry -Turn and reposition -Optimize nutrition -Offload both heels -Heel protector on both heels -Low air loss mattress -Assess and f/u accordingly for any changes THADDEUS CROOK RN May 31, 2017 20:52
[2017-05-31] MEDS ORDERED: Miralax 17gm pkt ORAL PRN (21:00)
[2017-05-31] MEDS ORDERED: Amikacin 900 MG in NS 110 ML IV SCH (22:00)
[2017-06-01] VITALS (7 sets, daily range): BP systolic 96–113; BP diastolic 55–70
--- NOTE | 2017-06-01 07:51 | General Progress Note ---
Assessment/Plan Assessment/Plan renal colic R hydronephrosis R nephrolithiasis s/p 05/22 cystoscopy woth R double J stent placement and fluoroscopy COPD/emphysema s/p biopsy of R lung nodule adenocarcinoma R lung R pneumothorax /iatrogenic s/p 05/29 Flexible bronchoscopy with Right video-assisted thoracoscopic surgery , Intrapleural pneumolysis, Partial pleurectomy, Superior segmentectomy, Mechanical pleurodesis. and Intercostal nerve block. tobacco abuse disorder elevated troponin CAD HTN multiple joint OA PLAN OF CARE fu with pathology results ok to dc to snif after then Subjective ROS Limited/Unobtainable: No Constitutional: Reports: weakness Respiratory: Reports: shortness of breath Allergies: Coded Allergies: No Known Allergies (Unverified , 05/20/17) Objective Last 24 Hour Vital Signs Date Time Temp Pulse Resp B/P (MAP) Pulse Ox O2 Delivery O2 Flow Rate FiO2 06/01/17 05:51 80 06/01/17 03:53 97.7 82 21 107/64 96 Room Air 06/01/17 00:38 97.7 85 22 96/55 94 Nasal Cannula 3.0 32 06/01/17 00:22 97.7 85 22 96/55 Nasal Cannula 3.0 06/01/17 00:00 86 05/31/17 20:38 Nasal Cannula 3.0 32 05/31/17 20:38 94 Nasal Cannula 3.0 32 05/31/17 20:38 93 20 3.0 32 05/31/17 20:08 97.7 102 25 110/70 90 Nasal Cannula 2.0 05/31/17 20:00 91 05/31/17 16:00 85 05/31/17 14:00 103 21 134/94 95 Nasal Cannula 2.0 05/31/17 13:00 102 22 139/96 96 Nasal Cannula 2.0 05/31/17 12:00 88 05/31/17 12:00 98.7 87 20 109/59 96 Nasal Cannula 2.0 05/31/17 11:30 97.2 05/31/17 11:00 86 15 99/62 94 Nasal Cannula 2.0 05/31/17 10:00 85 19 98/54 94 Nasal Cannula 2.0 05/31/17 09:00 97.1 05/31/17 09:00 82 96/57 05/31/17 09:00 82 15 96/57 95 Nasal Cannula 2.0 05/31/17 08:21 103/61 05/31/17 08:00 84 05/31/17 08:00 98.2 84 18 102/64 95 Nasal Cannula 2.0 Laboratory Tests 05/31/17 08:30: Arterial Blood pH 7.400, Arterial Blood Partial Pressure CO2 45.2H, Arterial Blood Partial Pressure O2 68.8L, Arterial Blood HCO3 27.4H, Arterial Blood Oxygen Saturation 92.8, Arterial Blood Base Excess 2.2, Stu Test Positive Height (Feet): 5 Height (Inches): 6.00 Weight (Pounds): 130 General Appearance: no apparent distress EENT: PERRL/EOMI Neck: supple Cardiovascular: normal rate Respiratory/Chest: rhonchi - bilaterally Abdomen: soft Extremities: non-tender, other - atrophied musculature Neurologic: repairer recreational vehicle II-XII grossly normal Thien Wolff MD Jun 01, 2017 07:51
[2017-06-01 09:09] LABS: ANION GAP 2 mmol/L (5-15); CALCIUM 10.9 MG/DL (8.5-10.1); CARBON DIOXIDE 34 MMOL/L (21-32); CHLORIDE 102 MMOL/L (98-107); CREATININE 0.5 MG/DL (0.55-1.30); GLOMERULAR FILTRATION RATE > 60 mL/min (>60); POTASSIUM 3.9 MMOL/L (3.5-5.1); SODIUM 138 MMOL/L (136-145)
[2017-06-01 09:19] LABS: BASOPHILS % (AUTO) 1.2 % (0.0-2.0); EOSINOPHILS % (AUTO) 3.9 % (0.0-3.0); LYMPHOCYTES % (AUTO) 16.5 % (20.0-45.0); MEAN CORPUSCULAR HEMOGLOBIN 24.2 PG (27.0-31.0); MEAN CORPUSCULAR HGB CONC 28.6 G/DL (32.0-36.0); MEAN CORPUSCULAR VOLUME 85 FL (80-99); MEAN PLATELET VOLUME 6.8 FL (6.5-10.1); MONOCYTES % (AUTO) 10.5 % (1.0-10.0); PLATELET COUNT 209 K/UL (150-450); RED BLOOD COUNT 3.64 M/UL (4.70-6.10); WHITE BLOOD COUNT 7.3 K/UL (4.8-10.8)
--- NOTE | 2017-06-01 09:32 | General Progress Note ---
Assessment/Plan Assessment/Plan (1) Intractable pain (2) Lung mass (3) Chest wall pain (4) Pneumothorax s/p chest tube placement (5) Multiple joint OA (6) Multiple joint pain Pt will be continued on Ulm morphine and Dilaudid D/w Dr. Pineda and he concurred. Subjective Date patient seen: Jun 01, 2017 Time patient seen: 09:00 - AM Allergies: Coded Allergies: No Known Allergies (Unverified , 05/20/17) Subjective REVIEW OF SYSTEMS: Denies rash, fever, chills, sweating, dizziness, drowsiness, blurred vision, sore throat, or change in his weight. Denies nausea, vomiting, diarrhea, or blood in the stool or urine. No bowel or bladder incontinence. Complaining of shortness of breath and Generalized body pain. SUBJECTIVE: Patient is s/p VATS and chest tube removal. His pain has been stable. He was increased on the Dilaudid to 2mg IV Q4H PRN severe, Morphine 2mg IV Q4H PRN Moderate pain and Ulm 5/325mg Q4H PRN. Objective Last 24 Hour Vital Signs Date Time Temp Pulse Resp B/P (MAP) Pulse Ox O2 Delivery O2 Flow Rate FiO2 06/01/17 08:00 97.7 89 20 113/62 96 06/01/17 05:51 80 06/01/17 03:53 97.7 82 21 107/64 96 Room Air 06/01/17 00:38 97.7 85 22 96/55 94 Nasal Cannula 3.0 32 06/01/17 00:22 97.7 85 22 96/55 Nasal Cannula 3.0 06/01/17 00:00 86 05/31/17 20:38 Nasal Cannula 3.0 32 05/31/17 20:38 94 Nasal Cannula 3.0 32 05/31/17 20:38 93 20 3.0 32 05/31/17 20:08 97.7 102 25 110/70 90 Nasal Cannula 2.0 05/31/17 20:00 91 05/31/17 16:00 85 05/31/17 14:00 103 21 134/94 95 Nasal Cannula 2.0 05/31/17 13:00 102 22 139/96 96 Nasal Cannula 2.0 05/31/17 12:00 88 05/31/17 12:00 98.7 87 20 109/59 96 Nasal Cannula 2.0 05/31/17 11:30 97.2 05/31/17 11:00 86 15 99/62 94 Nasal Cannula 2.0 05/31/17 10:00 85 19 98/54 94 Nasal Cannula 2.0 Laboratory Tests 06/01/17 08:25: White Blood Count 7.3, Red Blood Count 3.64L, Hemoglobin 8.8L, Hematocrit 30.8L , Mean Corpuscular Volume 85, Mean Corpuscular Hemoglobin 24.2L, Mean Corpuscular Hemoglobin Concent 28.6L, Red Cell Distribution Width 23.0H, Platelet Count 209, Mean Platelet Volume 6.8, Neutrophils (%) (Auto) 68.0, Lymphocytes (%) (Auto) 16.5L, Monocytes (%) (Auto) 10.5H, Eosinophils (%) (Auto ) 3.9H, Basophils (%) (Auto) 1.2, Sodium Level 138, Potassium Level 3.9, Chloride Level 102, Carbon Dioxide Level 34H, Anion Gap 2L, Blood Urea Nitrogen 9, Creatinine 0.5L, Estimat Glomerular Filtration Rate > 60, Glucose Level 100, Calcium Level 10.9H Height (Feet): 5 Height (Inches): 6.00 Weight (Pounds): 130 Objective GENERAL: Alert, awake, and oriented. HEENT: PERRLA. NECK: Range of motion is full in all directions. No tenderness to paracervical muscles. No adenopathy. LUNGS: decreased breath sounds b/l with chest tube noted at right chest wall. HEART: Regular. ABDOMEN: Benign. BACK: Range of motion is decreased in flexion and extension with tenderness to paraspinal muscles. No tenderness to trapezius and rhomboid muscles. EXTREMITIES: No cyanosis. No clubbing. No edema. NEURO: No changes. BLANCA ROSS Jun 01, 2017 09:32
[2017-06-01] MEDS: Tamsulosin 0.4mg cap ORAL SCH ×2 (09:39→17:43)
[2017-06-01] MEDS: Lisinopril 20mg tab ORAL SCH (09:40)
[2017-06-01] MEDS: Heparin 5000 units/ml inj SUBQ SCH ×2 (09:42→21:52)
[2017-06-01] MEDS: Norco 5mg/325mg tab ORAL PRN ×2 (11:48→16:16)
--- NOTE | 2017-06-01 13:17 | Pulmonology Progress Note ---
Assessment/Plan Problems: (1) Lung mass (2) COPD (chronic obstructive pulmonary disease) (3) Renal stone Assessment/Plan -F/U final path -Will need full PFT's post-discharge -PET scan post discharge -Will determine need for definitive resection after above -Will need HEME-ONC F/U -PRN DUOnebs -IS -Once PFT's done should be on a maintenance regimen -DVT Px: Hep SQ -Pain control/supportive care Subjective Allergies: Coded Allergies: No Known Allergies (Unverified , 05/20/17) Subjective + pain, no cough, no SOB, no F/C CT out Objective Last 24 Hour Vital Signs Date Time Temp Pulse Resp B/P (MAP) Pulse Ox O2 Delivery O2 Flow Rate FiO2 06/01/17 09:40 113/62 06/01/17 09:40 89 113/62 06/01/17 08:00 91 06/01/17 08:00 97.7 89 20 113/62 96 06/01/17 05:51 80 06/01/17 03:53 97.7 82 21 107/64 96 Room Air 06/01/17 00:38 97.7 85 22 96/55 94 Nasal Cannula 3.0 32 06/01/17 00:22 97.7 85 22 96/55 Nasal Cannula 3.0 06/01/17 00:00 86 05/31/17 20:38 Nasal Cannula 3.0 32 05/31/17 20:38 94 Nasal Cannula 3.0 32 05/31/17 20:38 93 20 3.0 32 05/31/17 20:08 97.7 102 25 110/70 90 Nasal Cannula 2.0 05/31/17 20:00 91 05/31/17 16:00 85 05/31/17 14:00 103 21 134/94 95 Nasal Cannula 2.0 Intake and Output 06/01/17 06/02/17 19:00 07:00 # Bowel Movements 2 General Appearance: cachetic HEENT: normocephalic, atraumatic, anicteric, mucous membranes moist Respiratory/Chest: chest wall non-tender, lungs clear, normal breath sounds, no respiratory distress Cardiovascular: normal peripheral pulses, normal rate, regular rhythm Abdomen: normal bowel sounds, soft, non tender, no organomegaly, non distended Extremities: no cyanosis, no clubbing, no edema Laboratory Tests 06/01/17 08:25: White Blood Count 7.3, Red Blood Count 3.64L, Hemoglobin 8.8L, Hematocrit 30.8L , Mean Corpuscular Volume 85, Mean Corpuscular Hemoglobin 24.2L, Mean Corpuscular Hemoglobin Concent 28.6L, Red Cell Distribution Width 23.0H, Platelet Count 209, Mean Platelet Volume 6.8, Neutrophils (%) (Auto) 68.0, Lymphocytes (%) (Auto) 16.5L, Monocytes (%) (Auto) 10.5H, Eosinophils (%) (Auto ) 3.9H, Basophils (%) (Auto) 1.2, Sodium Level 138, Potassium Level 3.9, Chloride Level 102, Carbon Dioxide Level 34H, Anion Gap 2L, Blood Urea Nitrogen 9, Creatinine 0.5L, Estimat Glomerular Filtration Rate > 60, Glucose Level 100, Calcium Level 10.9H Current Medications Medications (Trade) Dose Ordered Sig/Katya Route PRN Reason Start Time Stop Time Status Last Admin Dose Admin Acetaminophen (Tylenol) 650 mg Q4H PRN ORAL T>100.5 05/31/17 18:00 06/28/17 21:59 Acetaminophen/ Hydrocodone Bitart ([place] 5/325) 1 tab Q4H PRN ORAL Moderate Pain (Pain Scale 4-6) 05/31/17 18:00 06/05/17 17:59 06/01/17 11:48 Al Hydroxide/Mg Hydroxide (Mylanta II) 30 ml Q6H PRN ORAL dyspepsia 05/31/17 16:00 06/20/17 15:59 Albuterol/ Ipratropium (Albuterol/ Ipratropium) 3 ml Q4H PRN HHN Shortness of Breath 05/31/17 16:00 06/05/17 07:59 Amikacin Protocol (Amikacin pharmacy to dose) 1 ea DAILY PRN MISC Per rx protocol 05/31/17 16:00 06/30/17 15:59 Amikacin Sulfate 900 mg/Sodium Chloride 113.6 ml @ 113.6 mls/ hr Q24H IV 05/31/17 22:00 06/05/17 21:59 05/31/17 21:20 Carvedilol (Coreg) 3.125 mg DAILY ORAL 06/01/17 09:00 06/20/17 08:59 06/01/17 09:40 Dextrose (Dextrose 50%) STAT PRN IV Hypoglycemia 05/31/17 18:00 06/28/17 17:59 Diphenhydramine HCl (Benadryl) 25 mg Q6H PRN ORAL Itching/Pruritis 05/31/17 16:00 06/20/17 21:59 Gabapentin (Neurontin) 300 mg THREE TIMES A DAY ORAL 05/31/17 18:00 06/24/17 08:59 06/01/17 09:39 Heparin Sodium (Porcine) (Heparin 5000 units/ml) 5,000 units EVERY 12 HOURS SUBQ 05/31/17 21:00 06/29/17 08:59 06/01/17 09:42 Hydromorphone HCl (Dilaudid) 2 mg Q4H PRN IVP Severe Pain (Pain Scale 7-10) 05/31/17 16:00 06/06/17 11:59 06/01/17 09:35 Ketorolac Tromethamine (Toradol 30mg) 30 mg Q6H PRN IV For Pain 6-10 05/31/17 18:00 06/03/17 17:59 Lisinopril (Prinivil) 20 mg DAILY ORAL 06/01/17 09:00 06/20/17 08:59 06/01/17 09:40 Morphine Sulfate (Morphine Sulfate) 2 mg Q4H PRN IVP Moderate Pain (Pain Scale 4-6) 05/31/17 16:00 06/06/17 15:59 05/31/17 15:18 Nitroglycerin (Ntg) 0.4 mg Q5M X 3 DOSES PRN SL Prn Chest Pain 05/31/17 15:00 06/20/17 14:59 Ondansetron HCl (Zofran) 4 mg Q6H PRN IVP Nausea & Vomiting 05/31/17 16:00 06/28/17 15:59 Polyethylene Glycol (Miralax) 17 gm HSPRN PRN ORAL Constipation 05/31/17 21:00 06/28/17 20:59 Tamsulosin HCl (Flomax) 0.4 mg BID ORAL 05/31/17 18:00 06/20/17 08:59 06/01/17 09:39 Temazepam (Restoril) 15 mg HSPRN PRN ORAL Insomnia 05/31/17 21:00 06/05/17 20:59 SHANIQUA CARTY M.D. Jun 01, 2017 13:17
--- NOTE | 2017-06-01 13:46 | Diagnostic Imaging Report ---
Indication: Dyspnea Comparison: 05/31/2017 A single view chest radiograph was obtained. Findings: Left hemidiaphragm is elevated. Interstitial edema suspected. A right pleural effusion could be present as the diaphragm is ill-defined. There is no delayed pneumothorax. IMPRESSION: Suspected mild CHF. No change from the prior day
[2017-06-01 21:10] LABS: ABG ALLEN TEST POSITIVE; ABG BASE EXCESS 11.3; ABG PCO2 62.5 mmHg (35.0-45.0)
[2017-06-02] VITALS: BP 97/61
[2017-06-02] MEDS: Norco 5mg/325mg tab ORAL PRN ×2 (00:37→05:57)
[2017-06-02 04:04] VITALS: BP 107/60
--- NOTE | 2017-06-02 07:29 | General Progress Note ---
Assessment/Plan Status: stable Assessment/Plan renal colic R hydronephrosis R nephrolithiasis s/p 05/22 cystoscopy woth R double J stent placement and fluoroscopy COPD/emphysema s/p biopsy of R lung nodule adenocarcinoma R lung R pneumothorax /iatrogenic s/p 05/29 Flexible bronchoscopy with Right video-assisted thoracoscopic surgery , Intrapleural pneumolysis, Partial pleurectomy, Superior segmentectomy, Mechanical pleurodesis. and Intercostal nerve block. tobacco abuse disorder elevated troponin CAD HTN multiple joint OA PLAN OF CARE fu with pathology results ok to dc to home with Care today Followup with Oncologist/pulmonary for lung mass/ info given to patient Subjective Constitutional: Reports: malaise HEENT: Reports: no symptoms Cardiovascular: Reports: no symptoms Respiratory: Reports: no symptoms Allergies: Coded Allergies: No Known Allergies (Unverified , 05/20/17) Objective Last 24 Hour Vital Signs Date Time Temp Pulse Resp B/P (MAP) Pulse Ox O2 Delivery O2 Flow Rate FiO2 06/02/17 04:04 96.1 74 20 107/60 97 Nasal Cannula 06/02/17 04:00 Nasal Cannula 3.0 06/02/17 04:00 77 06/02/17 00:00 97.7 78 18 97/61 94 Nasal Cannula 06/02/17 00:00 Nasal Cannula 3.0 06/02/17 00:00 78 06/01/17 20:38 Nasal Cannula 3.0 32 06/01/17 20:38 98 Nasal Cannula 3.0 32 06/01/17 20:38 88 20 3.0 32 06/01/17 20:00 97.9 80 19 100/62 95 Nasal Cannula 06/01/17 20:00 84 06/01/17 20:00 Nasal Cannula 3.0 06/01/17 16:00 97.7 85 20 113/70 99 Nasal Cannula 3.0 06/01/17 16:00 90 06/01/17 12:00 77 06/01/17 12:00 97.7 89 20 112/67 99 06/01/17 09:40 113/62 06/01/17 09:40 89 113/62 06/01/17 08:00 91 06/01/17 08:00 97.7 89 20 113/62 96 Laboratory Tests 06/01/17 08:25: White Blood Count 7.3, Red Blood Count 3.64L, Hemoglobin 8.8L, Hematocrit 30.8L , Mean Corpuscular Volume 85, Mean Corpuscular Hemoglobin 24.2L, Mean Corpuscular Hemoglobin Concent 28.6L, Red Cell Distribution Width 23.0H, Platelet Count 209, Mean Platelet Volume 6.8, Neutrophils (%) (Auto) 68.0, Lymphocytes (%) (Auto) 16.5L, Monocytes (%) (Auto) 10.5H, Eosinophils (%) (Auto ) 3.9H, Basophils (%) (Auto) 1.2, Sodium Level 138, Potassium Level 3.9, Chloride Level 102, Carbon Dioxide Level 34H, Anion Gap 2L, Blood Urea Nitrogen 9, Creatinine 0.5L, Estimat Glomerular Filtration Rate > 60, Glucose Level 100, Calcium Level 10.9H 06/01/17 21:00: Arterial Blood pH 7.399, Arterial Blood Partial Pressure CO2 62.5*H, Arterial Blood Partial Pressure O2 68.3L, Arterial Blood HCO3 37.8H, Arterial Blood Oxygen Saturation 83.4L, Arterial Blood Base Excess 11.3, Stu Test Positive Height (Feet): 5 Height (Inches): 6.00 Weight (Pounds): 130 General Appearance: no apparent distress EENT: PERRL/EOMI Neck: supple Cardiovascular: normal rate Respiratory/Chest: rhonchi - bilaterally Abdomen: soft Extremities: other - atrophied musculature Neurologic: senior manager creative services II-XII grossly normal Thien Wolff MD Jun 02, 2017 07:29
[2017-06-02] MEDS ORDERED: Morphine Sulfate 2mg/ml Inj IVP PRN (07:30)
[2017-06-02] MEDS ORDERED: Norco 5mg/325mg tab ORAL PRN (07:30)
--- NOTE | 2017-06-02 08:00 | Consultation ---
DATE OF CONSULTATION: 06/01/2017 NOTE: POOR AUDIO QUALITY HEMATOLOGY/ONCOLOGY CONSULTATION CONSULTING PHYSICIAN: Onofre Mojica M.D. REQUESTING PHYSICIAN: 1. Raheem Mcgovern M.D. 2. Lizeth ElliottR[facility] HospitalJonnie Arellano REASON FOR CONSULTATION: Evaluation of lung cancer. HISTORY OF PRESENT ILLNESS: Dear Dr. Mcgovern and Lizeth Troy: The patient is a pleasant 62-year-the old male with past medical history, which is significant for coronary artery disease presents with right lower lobe lung nodules, underwent a CT-guided biopsy. Postprocedure, the patient was found to have pneumothorax. A pigtail catheter was placed. Thoracic Surgery was consulted for further evaluation and treatment. Pathology report reviewed from 05/27/2017 and shows was present in the right lung. Microscopic evaluation is pending. CT of the chest from 05/22/2017 shows enlargement of pulmonary arteries, two adjacent nodules in the superior right lower lobe concerning for lung mass. Hematology Service was consulted for further evaluation and treatment. The patient is status post right video-assisted thorascopic surgery on ____, which shows adenocarcinoma, however, this report is still pending. The patient is pending potential lobectomy in the future. The patient still requires PFTs and PET scan. I have reviewed notes from most recent, which were left by Dr. Chaparro Ceron on 05/30/2017. The patient is status post left lower lobe mechanical pleurodesis, nerve block. PAST MEDICAL HISTORY: BPH, DVT, right wrist fracture, non-ST elevated DE with [place] REBEL bare metal stent placement, COPD, hip fracture, thrombosis of left lower extremity, and community-acquired pneumonia. ALLERGIES: No known drug allergies. SOCIAL HISTORY: He smokes for the past 30 years plus. No alcohol use. No illicit drug use. REVIEW OF SYSTEMS: CONSTITUTIONAL: No fevers, chills, or night sweats. SKIN: No rashes, bumps, or itching. HEENT: No headache, hearing or vision changes. BREASTS: No lumps, pain, or discharge. PULMONARY: No cough, sputum, or shortness of breath. GASTROINTESTINAL: No nausea, vomiting, or diarrhea. GENITOURINARY: No dysuria, frequency, or urgency. MUSCULOSKELETAL: No joint swelling, muscle pain, or trauma. PHYSICAL EXAMINATION: VITAL SIGNS: Reviewed. GENERAL: No distress. PULMONARY: Decreased breath sounds. CARDIOVASCULAR: Regular rate. No S3 or S4. ABDOMEN: Soft, nontender, and nondistended. EXTREMITIES: A 1+ edema. LABORATORY AND DIAGNOSTIC DATA: WBC 36, hemoglobin 8.8, and platelet count 209,000. Chemistry shows BUN of 9 and creatinine 0.5. Imaging, the chest x-ray from ____ shows suspected mild CHF. No changes from the prior day. ASSESSMENT AND RECOMMENDATIONS: 1. Lung mass. We will need to follow up on final pathology for definitive resection. We will need to get a PET scan as well as PFTs status post discharge. The final pathology report, which showed adenocarcinoma, is still pending. 2. Chronic obstructive pulmonary disease history. Nebulizer treatment as needed. 3. Anemia secondary to chronic disease. Continue to closely monitor. 4. Pneumothorax . 5. Coronary artery disease, status post bare metal stent placement. 6. History of deep vein thrombosis. We will continue to closely monitor. 7. Tobacco use history. Counseled on cessation. I appreciate the consultation. Onofre Mojica M.D. DR: ANTONIETTA JOB#: [id number] CC:
[2017-06-02] MEDS: Tamsulosin 0.4mg cap ORAL SCH (08:11)
[2017-06-02] MEDS: Heparin 5000 units/ml inj SUBQ SCH (08:12)
[2017-06-02 08:13] VITALS: BP 92/62
--- NOTE | 2017-06-02 08:28 | General Progress Note ---
Assessment/Plan Assessment/Plan (1) Intractable pain (2) Lung mass (3) Chest wall pain (4) Pneumothorax s/p chest tube placement (5) Multiple joint OA (6) Multiple joint pain Pt will be continued on [place] morphine and Dilaudid D/w Dr. Pineda and he concurred. Subjective Date patient seen: Jun 02, 2017 Time patient seen: 07:00 - am Allergies: Coded Allergies: No Known Allergies (Unverified , 05/20/17) Subjective REVIEW OF SYSTEMS: Denies rash, fever, chills, sweating, dizziness, drowsiness, blurred vision, sore throat, or change in his weight. Denies nausea, vomiting, diarrhea, or blood in the stool or urine. No bowel or bladder incontinence. Complaining of shortness of breath and Generalized body pain. SUBJECTIVE: Patient has been tolerating the pain on the medications and has no new complaints. Objective Last 24 Hour Vital Signs Date Time Temp Pulse Resp B/P (MAP) Pulse Ox O2 Delivery O2 Flow Rate FiO2 06/02/17 08:13 97.3 78 18 92/62 93 Nasal Cannula 2.0 06/02/17 04:04 96.1 74 20 107/60 97 Nasal Cannula 06/02/17 04:00 Nasal Cannula 3.0 06/02/17 04:00 77 06/02/17 00:00 97.7 78 18 97/61 94 Nasal Cannula 06/02/17 00:00 Nasal Cannula 3.0 06/02/17 00:00 78 06/01/17 20:38 Nasal Cannula 3.0 32 06/01/17 20:38 98 Nasal Cannula 3.0 32 06/01/17 20:38 88 20 3.0 32 06/01/17 20:00 97.9 80 19 100/62 95 Nasal Cannula 06/01/17 20:00 84 06/01/17 20:00 Nasal Cannula 3.0 06/01/17 16:00 97.7 85 20 113/70 99 Nasal Cannula 3.0 06/01/17 16:00 90 06/01/17 12:00 77 06/01/17 12:00 97.7 89 20 112/67 99 06/01/17 09:40 113/62 06/01/17 09:40 89 113/62 Laboratory Tests 06/01/17 21:00: Arterial Blood pH 7.399, Arterial Blood Partial Pressure CO2 62.5*H, Arterial Blood Partial Pressure O2 68.3L, Arterial Blood HCO3 37.8H, Arterial Blood Oxygen Saturation 83.4L, Arterial Blood Base Excess 11.3, Stu Test Positive Height (Feet): 5 Height (Inches): 6.00 Weight (Pounds): 130 Objective GENERAL: Alert, awake, and oriented. HEENT: PERRLA. NECK: Range of motion is full in all directions. No tenderness to paracervical muscles. No adenopathy. LUNGS: decreased breath sounds b/l with chest tube noted at right chest wall. HEART: Regular. ABDOMEN: Benign. BACK: Range of motion is decreased in flexion and extension with tenderness to paraspinal muscles. No tenderness to trapezius and rhomboid muscles. EXTREMITIES: No cyanosis. No clubbing. No edema. NEURO: No changes. BLANCA ROSS Jun 02, 2017 08:28
[2017-06-02] MEDS: Lisinopril 20mg tab ORAL SCH (08:35)
--- NOTE | 2017-06-02 09:46 | Cardiology Progress Note ---
Assessment/Plan Assessment/Plan 1. Pneumothorax, iatrogenic. 2. Lung mass. 3. Coronary artery disease, status post bare metal stent placement in the left anterior descending artery and circumflex artery in 12/2015. 4. History of deep venous thrombosis, on Xarelto. 5. Chronic obstructive pulmonary disease. 6. History of systolic dysfunction of mild degree with apical hypokinesis now with normal wall motion 7. History of deep venous thrombosis. 8. Tobacco use disord no sig or sx of acs at this time echo normal wall motion perfusion only small area of questionable sig bp borderlinedecreased lisinopril form 20 to 5 mg telel sinus d/w rn dc palsn as per dr beth Subjective Cardiovascular: Denies: chest pain, lightheadedness, palpitations Respiratory: Reports: shortness of breath Gastrointestinal/Abdominal: Denies: abdominal pain Genitourinary: Denies: burning Subjective pain are better Objective Last 24 Hour Vital Signs Date Time Temp Pulse Resp B/P (MAP) Pulse Ox O2 Delivery O2 Flow Rate FiO2 06/02/17 08:35 95/06/02/17 08:34 78 95/62 06/02/17 08:13 97.3 78 18 92/62 93 Nasal Cannula 2.0 06/02/17 04:04 96.1 74 20 107/60 97 Nasal Cannula 06/02/17 04:00 Nasal Cannula 3.0 06/02/17 04:00 77 06/02/17 00:00 97.7 78 18 97/61 94 Nasal Cannula 06/02/17 00:00 Nasal Cannula 3.0 06/02/17 00:00 78 06/01/17 20:38 Nasal Cannula 3.0 32 06/01/17 20:38 98 Nasal Cannula 3.0 32 06/01/17 20:38 88 20 3.0 32 06/01/17 20:00 97.9 80 19 100/62 95 Nasal Cannula 06/01/17 20:00 84 06/01/17 20:00 Nasal Cannula 3.0 06/01/17 16:00 97.7 85 20 113/70 99 Nasal Cannula 3.0 06/01/17 16:00 90 06/01/17 12:00 77 06/01/17 12:00 97.7 89 20 112/67 99 General Appearance: no apparent distress, alert Neck: supple Cardiovascular: normal rate, regular rhythm Respiratory/Chest: decreased breath sounds Abdomen: normal bowel sounds, non tender, soft Extremities: no swelling Intake and Output 06/02/17 06/03/17 19:00 07:00 Intake Total 240 ml Balance 240 ml Intake Oral 240 ml Laboratory Tests Test 06/01/17 21:00 Arterial Blood pH 7.399 (7.350-7.450) Arterial Blood Partial Pressure CO2 62.5 mmHg (35.0-45.0) *H Arterial Blood Partial Pressure O2 68.3 mmHg (75.0-100.0) L Arterial Blood HCO3 37.8 mmol/L (22.0-26.0) H Arterial Blood Oxygen Saturation 83.4 % (92.0-98.0) L Arterial Blood Base Excess 11.3 Stu Test Positive HALINA WEIR Jun 02, 2017 09:46
[2017-06-02 12:00] VITALS: BP 98/72
[2017-06-03] MEDS ORDERED: Lisinopril 2.5mg tab ORAL SCH (09:00)
--- NOTE | 2017-06-03 09:27 | Discharge Summary ---
Discharge Summary Hospital Course Date of Admission May 20, 2017 at 21:50 Date of Discharge Jun 02, 2017 at 13:35 Admitting Diagnosis Ureteral stone with obstruction GEORGIE Lobato is a 62 year old male who was admitted on May 20, 2017 at 21:50 for Ureteral Stone With Obstruction Hospital Course [id number] Discharge Discharge Disposition Patient was discharged to Home with Home Health(06) Discharge Diagnoses: Catrachita Zambrano NP Jun 03, 2017 09:27
--- NOTE | 2017-06-04 04:45 | Discharge Summary 2 SIG ---
DATE OF ADMISSION: 05/20/2017 DATE OF DISCHARGE: 06/02/2017 ATTENDING PHYSICIAN: Raheem Mcgovern M.D. CONSULTANTS: 1. Santino Crane M.D. 2. Jah Pineda M.D. 3. Onofre Mojica M.D. 4. Chaparro Ceron M.D. 5. Daniel Fischer M.D. BRIEF HOSPITAL COURSE: The patient is a 62-year-old male with history of COPD, presented to ED complaining of left flank pain for three days, which was severe 01/22 and also has pain on the right shoulder. He had kidney stones in the past and symptoms were worsening. Evaluation at ED, work-up showed no leukocytosis. Chest x-ray showed a right mid lung spiculated nodule. Renal ultrasound showed moderate right hydronephrosis with a large calculus at the right ureteropelvic junction. There is no left hydronephrosis. There are multiple cysts seen on both kidneys and multiple right intrarenal calculi. Urologist was consulted. On 05/22/2017, he underwent cystoscopy with right double-J stent placement and fluoroscopy by Dr. Fischer. He had abnormal chest x-ray findings. CT scan of the chest revealed 2 adjacent spiculated nodules in the superior segment of the right lower lobe concerning for primary lung malignancy. There is enlargement of the pulmonary arteries suggesting pulmonary artery hypertension and progressive lung emphysema. On 05/25/2017, he underwent right lung fine-needle aspiration of the right lower lobe mass. On x-ray, he had a pneumothorax. A pigtail chest vent catheter was then inserted. Dr. Crane was consulted for cardia clearance. The patient will be requiring VATS therapy for treatment of pneumothorax and removal of lung segment. His EKG showed normal sinus rhythm with normal QRS axis, normal EKG, which has been unchanged since the last EKG of 03/12/2017. Echocardiogram done showed ejection fraction of 55% to 60%. There was no aortic regurgitation and no mitral regurgitation with trace tricuspid regurgitation. He underwent a myocardial perfusion scan, which was nonischemic. Biopsy of the lung nodules revealed adenocarcinoma. On 05/29/2017, he underwent flexible bronchoscopy with right video-assisted thoracoscopic surgery, intrapleural pneumolysis, partial pleurectomy, superior segmentectomy, mechanical pleurodesis and intercostal nerve block by Dr. Ceron. Per surgery since no preoperative pulmonary function test was performed. A decision was made not to perform the lobectomy at this time. He is deemed to be a surgical candidate, which can be arranged electively as an outpatient. He will need a PFT and PET scan and was advised to follow up with Hem/Onc as an outpatient. Chest tube was removed on 05/30/2017. Postoperatively, there was no pneumothorax. He was saturating well on room air and was eventually discharged to home with home health. FINAL DIAGNOSES: 1. Renal colic with right hydronephrosis and right nephrolithiasis causing obstructive uropathy, status post cystoscopy with right double-J stent placement and fluoroscopy on 05/22/2017. 2. Acute chronic obstructive pulmonary disease/emphysema. 3. Status post biopsy of right lung nodule. 4. Adenocarcinoma of the right lung. 5. Right pneumothorax/iatrogenic. 6. Status post flexible bronchoscopy with right video-assisted thoracoscopic surgery, intrapleural pneumonolysis, partial pleurectomy, superior segmentectomy, mechanical pleurodesis and intercostal nerve block on 05/29/2017. 7. Tobacco use disorder. 8. Elevated troponin. 9. Coronary artery disease. 10. Hypertension. 11. Multiple osteoarthritis. 12. Deep tissue injury pressure ulcer on the sacral area and stage I pressure ulcer on the left sacral area, present on admission. DISPOSITION: The patient was discharged home with home health. DISCHARGE MEDICATIONS: Refer to medication list. DISCHARGE INSTRUCTIONS: Follow up with PMD and Hem/Oncology as an outpatient. He will eventually need PFT and PET scan arranged. He was also advised need to follow up with Urologist for removal of stent. Thien Wolff M.D. I have been assigned to dictate discharge summary on this account and I was not involved in the patient's management. Catrachita Zambrano N.P. DR: JL/V :24 JOB#: [id number] CC: SHASHI
== END 2017-06-02 13:35 | disposition home health service (06) | DRG 950 ==
LOC: EDBD 18:04 → EMR 18:35 → EDBEDREQ 21:29 → 3E 21:50 → EDBEDREQ 21:58 → 2W 05-25 16:12 → ICU 05-29 17:28 → 2E 05-31 14:10
PROC: 0T768DZ Dilation of Right Ureter with Intraluminal Device, Via Natural or Artificial Opening Endoscopic (ICD-10-PCS; principal; 2017-05-22 16:30)
PROC: 0W9930Z Drainage of Right Pleural Cavity with Drainage Device, Percutaneous Approach (ICD-10-PCS; 2017-05-25)
PROC: 0BDF8ZX Extraction of Right Lower Lung Lobe, Via Natural or Artificial Opening Endoscopic, Diagnostic (ICD-10-PCS; 2017-05-25)
PROC: 0B5N4ZZ Destruction of Right Pleura, Percutaneous Endoscopic Approach (ICD-10-PCS; 2017-05-29)
PROC: 0BNN4ZZ Release Right Pleura, Percutaneous Endoscopic Approach (ICD-10-PCS; 2017-05-29)
PROC: 0BBF4ZZ Excision of Right Lower Lung Lobe, Percutaneous Endoscopic Approach (ICD-10-PCS; 2017-05-29)
PROC: 0BJ08ZZ Inspection of Tracheobronchial Tree, Via Natural or Artificial Opening Endoscopic (ICD-10-PCS; 2017-05-29)
PROC: 0BBN4ZZ Excision of Right Pleura, Percutaneous Endoscopic Approach (ICD-10-PCS; 2017-05-29)
DX: N13.2 Hydronephrosis with renal and ureteral calculous obstruction (principal); L89.151 Pressure ulcer of sacral region, stage 1; C34.31 Malignant neoplasm of lower lobe, right bronchus or lung; J44.9 Chronic obstructive pulmonary disease, unspecified; I10 Essential (primary) hypertension; D64.9 Anemia, unspecified; J95.811 Postprocedural pneumothorax; Z87.442 Personal history of urinary calculi; M25.511 Pain in right shoulder; I25.10 Atherosclerotic heart disease of native coronary artery without angina pectoris; Z95.5 Presence of coronary angioplasty implant and graft; Z72.0 Tobacco use; I25.2 Old myocardial infarction; Z86.718 Personal history of other venous thrombosis and embolism; Z79.01 Long term (current) use of anticoagulants; R07.89 Other chest pain
CPT/HCPCS: 36415; 36600; 71010; 71260; 74000; 75989; 76000; 76775; 78452; 80048; 80053; 80150; 81001; 81003; 82150; 82378; 82550; 82607; 82746; 82803; 83540; 83550; 83615; 83690; 83735; 83880; 84100; 84484; 85007; 85025; 85044; 85060; 85610; 85651; 85730; 86850; 86900; 86901; 86920; 87086; 93005; 93017; 93306; 94003; 94150; 94640; 94664; 94760; 99285; J2250; J2405; J2710; J2785

== ENCOUNTER → 2017-12-31 | Emergency (ER) | payer OTHER ==
[~2017-12-31] VITALS: Ht 172.7 cm; Wt 63.5 kg
[~2017-12-31] MED LIST: CARVEDILOL3.125 MG ORAL; Cefepime HCl 1 GM in D5W 55 ML IVPB ONE; Ketorolac 30mg Inj IV ONE; LISINOPRIL20 MG ORAL; Morphine Sulfate 4mg/ml Inj IVP ONE; PLAVIX75 MG ORAL; SPIRIVA18 MCG INH; SYMBICORT 1601 PUFFS INH; TAMSULOSIN HCL0.4 MG ORAL; VENTOLIN HFA18 GM INH; VITAMIN D1000 UNI1 ORAL
[2017-12-31 12:00] VITALS: BP 106/81
[2017-12-31 12:35] LABS: BASOPHILS % (AUTO) 1.3 % (0.0-2.0); EOSINOPHILS % (AUTO) 0.7 % (0.0-3.0); HEMATOCRIT 49.7 % (42.0-52.0); LYMPHOCYTES % (AUTO) 10.2 % (20.0-45.0); MEAN CORPUSCULAR VOLUME 86 FL (80-99); MONOCYTES % (AUTO) 6.7 % (1.0-10.0); NEUTROPHILS % (AUTO) 81.2 % (45.0-75.0); PLATELET COUNT 252 K/UL (150-450); RED BLOOD COUNT 5.76 M/UL (4.70-6.10); RED CELL DISTRIBUTION WIDTH 16.5 % (11.6-14.8); WHITE BLOOD COUNT 7.4 K/UL (4.8-10.8)
--- NOTE | 2017-12-31 12:35 | Emergency Room Report ---
History of Present Illness General Chief Complaint: Pain Source: Patient Present Illness HPI Patient presents with right flank pain. Patient states that he's had renal stones broken up by his urologist recently. There were 2 smaller stones that he was left to pass on his own. He denies any fevers or chills. He does have increased hematuria and increased pain in his flank recently. The pain is 7/10 at this time right flank radiating down to his groin. The patient also has mildly productive cough and states he has lung cancer in his right upper lobe. He continues to smoke at this time. He denies any chest pain, productive cough, hemoptysis. Some weight loss. No depression, SI. No headache. No rashes. Allergies: Coded Allergies: No Known Allergies (Unverified , 05/20/17) Patient History Past Medical History: see triage record Past Surgical History: other - ureteral stent R Social History: Reports: smoking; Denies: alcohol use, drug use Social History Narrative at home Reviewed Nursing Documentation: PMH: Agreed; PSxH: Agreed Nursing Documentation-PMH Past Medical History: No History, Except For Hx COPD: Yes - emphysema Hx Cancer: Yes - Lung Review of Systems All Other Systems: negative except mentioned in HPI Physical Exam Vital Signs Date Time Temp Pulse Resp B/P (MAP) Pulse Ox O2 Delivery O2 Flow Rate FiO2 12/31/17 11:51 98.1 112 20 126/85 95 Room Air 98.1 Sp02 EP Interpretation: reviewed, normal General Appearance: no apparent distress, GCS 15, non-toxic, thin, Chronically Ill Head: normocephalic Eyes: bilateral eye normal inspection, bilateral eye PERRL ENT: moist mucus membranes Neck: supple Respiratory: lungs clear, normal breath sounds Cardiovascular #1: regular rate, rhythm Cardiovascular #2: 2+ radial (R) Gastrointestinal: normal inspection, normal bowel sounds, non tender, no mass, non-distended Genitourinary: CVA tenderness (R) Musculoskeletal: back normal, gait/station normal, normal range of motion Neurologic: alert, oriented x3, grossly normal Psychiatric: mood/affect normal Skin: normal inspection, warm/dry, other - sallo Medical Decision Making Diagnostic Impression: Primary Impression: Pyelonephritis Additional Impressions: S/P ureteral stent placement Lung mass ER Course Patient presents with R flank pain. DDx: renal stone, pyelonephritis, occlusion of stent, muscle strain amongst others. Evaluation with films and labs. Treatment with IV hydration and analgesia. Labs with normal WBC and pyuria. Xrays with RUL mass and stent R ureter. Antibiotics begun for presumptive pyelonephritis. Improved with treatment, however complex patient with stent needs admission for IV antibiotics and urologic evaluation. Need to assess stent. CT ordered. Patient states he has to take care of "film" at home and insists on leaving AMA. States will return in [address] ([address] not performed) Laboratory Tests Test 12/31/17 12:23 12/31/17 12:29 White Blood Count 7.4 K/UL (4.8-10.8) Red Blood Count 5.76 M/UL (4.70-6.10) Hemoglobin 15.0 G/DL (14.2-18.0) Hematocrit 49.7 % (42.0-52.0) Mean Corpuscular Volume 86 FL (80-99) Mean Corpuscular Hemoglobin 26.1 PG (27.0-31.0) L Mean Corpuscular Hemoglobin Concent 30.3 G/DL (32.0-36.0) L Red Cell Distribution Width 16.5 % (11.6-14.8) H Platelet Count 252 K/UL (150-450) Mean Platelet Volume 7.2 FL (6.5-10.1) Neutrophils (%) (Auto) 81.2 % (45.0-75.0) H Lymphocytes (%) (Auto) 10.2 % (20.0-45.0) L Monocytes (%) (Auto) 6.7 % (1.0-10.0) Eosinophils (%) (Auto) 0.7 % (0.0-3.0) Basophils (%) (Auto) 1.3 % (0.0-2.0) Prothrombin Time 10.7 SEC (9.30-11.50) Prothrombin Time INR 1.0 (0.9-1.1) PTT 26 SEC (23-33) Sodium Level 137 MMOL/L (136-145) Potassium Level 4.7 MMOL/L (3.5-5.1) Chloride Level 101 MMOL/L (98-107) Carbon Dioxide Level 28 MMOL/L (21-32) Anion Gap 8 mmol/L (5-15) Blood Urea Nitrogen 18 mg/dL (7-18) Creatinine 0.7 MG/DL (0.55-1.30) Estimate Glomerular Filtration Rate > 60 mL/min (>60) Glucose Level 102 MG/DL (74-106) Calcium Level 10.6 MG/DL (8.5-10.1) H Total Bilirubin 0.2 MG/DL (0.2-1.0) Aspartate Amino Transferase (AST) 20 U/L (15-37) Alanine Aminotransferase (ALT) 19 U/L (12-78) Alkaline Phosphatase 155 U/L (46-116) H Total Creatine Kinase 113 U/L (26-308) Troponin I 0.000 ng/mL (0.000-0.056) Total Protein 8.7 G/DL (6.4-8.2) H Albumin 3.1 G/DL (3.4-5.0) L Globulin 5.6 g/dL Albumin/Globulin Ratio 0.6 (1.0-2.7) L Lipase 138 U/L (73-393) Urine Color Yellow Urine Appearance Slightly cloudy Urine pH 5 (4.5-8.0) Urine Specific [place] 1.010 (1.005-1.035) Urine Protein 3+ (NEGATIVE) H Urine Glucose (UA) Negative (NEGATIVE) Urine Ketones Negative (NEGATIVE) Urine Occult Blood 5+ (NEGATIVE) H Urine Nitrite Negative (NEGATIVE) Urine Bilirubin Negative (NEGATIVE) Urine Urobilinogen Normal MG/DL (0.0-1.0) Urine Leukocyte Esterase 3+ (NEGATIVE) H Urine RBC 40-60 /HPF (0 - 0) H Urine WBC 15-20 /HPF (0 - 0) H Urine Squamous Epithelial Cells Few /LPF (NONE/OCC) Urine Bacteria Few /HPF (NONE) Urine Mucus Moderate /LPF (NONE/OCC) H EKG Diagnostic Results Rate: tachycardiac Rhythm: NSR ST Segments: no acute changes Rhythm Strip Diag. Results EP Interpretation: yes Rhythm: no PVC's, no ectopy, other - Sinus tachycardia Chest X-Ray Diagnostic Results Chest X-Ray Diagnostic Results : Chest X-Ray Ordered: Yes # of Views/Limited/Complete: 1 View Indication: Other EP Interpretation: Yes Interpretation: no effusion, no pneumothorax, other - RUL mass Impression: Other Electronically Signed by: Girma Dobbins MD Other X-Ray Diagnostic Results Other X-Ray Diagnostic Results : X-Ray ordered: abd # of Views/Limited Vs Complete: 1 View Indication: Pain EP Interpretation: Yes Interpretation: nonspecific bowel gas, no sbo, other - stent R Impression: Other Electronically Signed by: Girma Dobbins MD Last Vital Signs Date Time Temp Pulse Resp B/P (MAP) Pulse Ox O2 Delivery O2 Flow Rate FiO2 12/31/17 15:50 98.5 104 26 106/81 94 Room Air Status: improved Disposition: AGAINST MEDICAL ADVICE Condition: Serious Girma Dobbins M.D. Dec 31, 2017 12:35
[2017-12-31 12:40] LABS: ANION GAP 8 mmol/L (5-15); BLOOD UREA NITROGEN 18 mg/dL (7-18); CALCIUM 10.6 MG/DL (8.5-10.1); CARBON DIOXIDE 28 MMOL/L (21-32); CHLORIDE 101 MMOL/L (98-107); CREATININE 0.7 MG/DL (0.55-1.30); POTASSIUM 4.7 MMOL/L (3.5-5.1); SODIUM 137 MMOL/L (136-145)
[2017-12-31 12:44] LABS: ALANINE AMINOTRANSFERASE 19 U/L (12-78); ALBUMIN 3.1 G/DL (3.4-5.0); ALBUMIN/GLOBULIN RATIO 0.6 (1.0-2.7); ALKALINE PHOSPHATASE 155 U/L (46-116); ASPARTATE AMINO TRANSFERASE 20 U/L (15-37); BILIRUBIN,TOTAL 0.2 MG/DL (0.2-1.0); CREATINE KINASE 113 U/L (26-308)
[2017-12-31 13:00] VITALS: BP 107/68
[2017-12-31 13:09] LABS: APPEARANCE,URINE SLIGHTLY CLOUDY; BILIRUBIN, URINE NEGATIVE (NEGATIVE); GLUCOSE, URINE (UA) NEGATIVE (NEGATIVE); KETONES,URINE NEGATIVE (NEGATIVE); LEUKOCYTE ESTERASE ,URINE 3+ (NEGATIVE); NITRITE,URINE NEGATIVE (NEGATIVE); PH,URINE 5 (4.5-8.0); PROTEIN,URINE 3+ (NEGATIVE); UROBILINOGEN,URINE NORMAL MG/DL (0.0-1.0)
[2017-12-31 13:28] LABS: COLOR,URINE YELLOW
[2017-12-31 14:45] VITALS: BP 110/69
[2017-12-31 15:50] VITALS: BP 106/81
--- NOTE | 2017-12-31 17:07 | Diagnostic Imaging Report ---
Indication: Flank pain Technique: Supine view of the abdomen Comparison: none Findings: There is a right nephroureteral stent in place. A calcification projects over the expected region of the lower pole right kidney, measuring 15 mm in diameter. A cluster of smaller calcifications measures 9 mm in diameter in the adjacent position. Bowel gas pattern is unremarkable. The left hemidiaphragm is elevated. There is left hip surgical hardware. Impression: Right nephroureteral stent in place Calcifications projected over the lower pole the right kidney, likely lower pole calyceal calculi. Correlate with prior imaging studies
--- NOTE | 2017-12-31 17:11 | Diagnostic Imaging Report ---
Indication: Cough Technique: One view of the chest Comparison: Findings: Left hemidiaphragm is elevated. The right lung is hyperinflated. There is scarring and volume loss in the right lung apex could there is a spiculated masslike opacity which measures approximately 3 cm in diameter, probably reflects scarring but underlying mass is also a possibility. Surgical david are seen in the right pulmonary hilum. There is elevation of left hemidiaphragm and left basilar atelectasis. There is thoracic scoliotic deformity Impression: Right apical opacity with volume loss, likely reflects scarring, but underlying mass lesion not excludable Evidence of prior right lung surgery-correlate with surgical history No definite acute process Left basilar atelectasis with elevation of the left hemidiaphragm Findings discussed by phone with Dr. Gutierrez in the emergency room at the time of interpretation
--- NOTE | 2018-01-01 16:56 | Cardiology Report ---
APPROVED REPORT EKG Measurement Heart [id number] Sinus tachycardia Biatrial enlargement ST elevation, probably due to early repolarization Abnormal ECG
== END | disposition left against medical advice (07) ==
LOC: EDBD 11:57 → MERGE 11:57 → EMR 14:05
DX: N12 Tubulo-interstitial nephritis, not specified as acute or chronic (principal); R91.8 Other nonspecific abnormal finding of lung field; J44.9 Chronic obstructive pulmonary disease, unspecified; Z85.118 Personal history of other malignant neoplasm of bronchus and lung
CPT/HCPCS: 36415; 71045; 74018; 80053; 81003; 82550; 83690; 84484; 85025; 85610; 85730; 86850; 86900; 86901; 87086; 93005; 99284; J0692; J1885; J2270; J2405

== ENCOUNTER 2018-01-12 14:45 | Emergency (ER) | payer OTHER ==
[~2018-01-12] VITALS: Ht 167.6 cm; Wt 51.7 kg
[~2018-01-12 14:45] MED LIST changes: -Cefepime HCl 1 GM in D5W 55 ML IVPB ONE; -Ketorolac 30mg Inj IV ONE; -Morphine Sulfate 4mg/ml Inj IVP ONE
[2018-01-12 15:00] VITALS: BP 102/69
[2018-01-12] MEDS ORDERED: Morphine Sulfate 4mg/ml Inj (IV USE ONLY) IVP ONE (15:00)
[2018-01-12] MEDS ORDERED: Ketorolac 30mg Inj IV ONE (15:00)
[2018-01-12 15:39] LABS: BASOPHILS % (AUTO) 1.5 % (0.0-2.0); EOSINOPHILS % (AUTO) 1.7 % (0.0-3.0); HEMATOCRIT 37.3 % (42.0-52.0); HEMOGLOBIN 11.9 G/DL (14.2-18.0); LYMPHOCYTES % (AUTO) 11.3 % (20.0-45.0); MEAN CORPUSCULAR VOLUME 86 FL (80-99); MONOCYTES % (AUTO) 7.4 % (1.0-10.0); NEUTROPHILS % (AUTO) 78.1 % (45.0-75.0); PLATELET COUNT 136 K/UL (150-450); RED BLOOD COUNT 4.35 M/UL (4.70-6.10); RED CELL DISTRIBUTION WIDTH 16.2 % (11.6-14.8); WHITE BLOOD COUNT 6.4 K/UL (4.8-10.8)
[2018-01-12 15:42] LABS: ANION GAP 4 mmol/L (5-15); BLOOD UREA NITROGEN 12 mg/dL (7-18); CALCIUM 10.2 MG/DL (8.5-10.1); CARBON DIOXIDE 31 MMOL/L (21-32); CHLORIDE 102 MMOL/L (98-107); CREATININE 0.6 MG/DL (0.55-1.30); POTASSIUM 4.2 MMOL/L (3.5-5.1); SODIUM 137 MMOL/L (136-145)
[2018-01-12 15:47] LABS: ALANINE AMINOTRANSFERASE 17 U/L (12-78); ALKALINE PHOSPHATASE 142 U/L (46-116); APPEARANCE,URINE CLOUDY; ASPARTATE AMINO TRANSFERASE 16 U/L (15-37); BILIRUBIN, URINE NEGATIVE (NEGATIVE); BILIRUBIN,TOTAL 0.3 MG/DL (0.2-1.0); GLUCOSE, URINE (UA) NEGATIVE (NEGATIVE); KETONES,URINE NEGATIVE (NEGATIVE); LEUKOCYTE ESTERASE ,URINE 2+ (NEGATIVE); NITRITE,URINE NEGATIVE (NEGATIVE); PH,URINE 6.5 (4.5-8.0); PROTEIN,URINE 3+ (NEGATIVE); UROBILINOGEN,URINE NORMAL MG/DL (0.0-1.0)
[2018-01-12 15:48] LABS: COLOR,URINE ORANGE
[2018-01-12 16:02] LABS: ALBUMIN 2.7 G/DL (3.4-5.0)
[2018-01-12 16:03] LABS: ALBUMIN/GLOBULIN RATIO 0.6 (1.0-2.7)
--- NOTE | 2018-01-12 16:24 | Diagnostic Imaging Report ---
Indication: Pain Technique: Noncontrast CT of the abdomen and pelvis utilizing automated exposure control. Axial, sagittal and coronal reformats presented. CT dose: Total DLP 713.43 mGycm; CTDI vol 10.21,9.84 mGy Comparison: No prior CT of the abdomen available for comparison. Correlation made to images of the lower chest/upper abdomen from CT chest 05/25/2017 Findings: Please note that evaluation of the abdominal and pelvic viscera and vascular structures is limited without the use of intravenous and oral contrast. Within these limitations the following observations are made: Images through the lower lungs demonstrate severe emphysema. There is surgical material with some adjacent soft tissue attenuation in the region of the posterior right lower lobe (series 10 image #4). This is likely postsurgical in etiology consistent with known history of resection of the previously identified spiculated nodules in this region. The possibility of recurrent or residual disease in this area cannot be excluded. There is unchanged elevation of the left hemidiaphragm. There is adjacent linear atelectasis or scarring in the left lower lobe. Stomach is mildly distended but similar in appearance to prior chest CT. There is copious stool throughout the colon suggestive of constipation. Some dense stool with mild rectal wall thickening. Correlate for a degree of fecal impaction. There is no free air. No evidence to suggest high-grade mechanical small bowel obstruction. There are unchanged well-circumscribed low-attenuation lesions in the liver and kidneys, some are too small to fully characterize but likely represent cysts. Adrenal glands, spleen and pancreas grossly unremarkable. Contrast is noted within the renal collecting system likely related to prior administration of IV contrast. There is an indwelling right-sided ureteral stent. There is slight asymmetric prominence of the right-sided calyces relative to the left. Difficult to assess for calyceal stones given dense contrast in the collecting system but likely there are stones in the lower pole of the right kidney. There also may be a stone adjacent to the proximal portion of the ureteral stent in the region of the ureterovesicular junction (a large stone was noted in this region in the past). Contrast opacifies the bladder. Scoliosis and multilevel degenerative change of the spine. Left femoral fixation hardware is noted. There are degenerative changes of the bilateral hips. There is extensive atherosclerotic vascular calcification of the aorta and its branches. IMPRESSION: Limited exam without intravenous and oral contrast. Within these limitations: * Dense contrast noted in the bilateral renal collecting systems. Question prior administration of intravenous contrast (no record of such administration today). * Indwelling right-sided ureteral stent appears appropriately positioned. There is mild asymmetric prominence of the right-sided calyces compared to the left. Comparison with imaging before and after ureteral stent placement would be helpful to assess for presence of obstructive uropathy. The right-sided collecting system appears significantly decompressed when compared to 05/22/2017. * Likely calyceal stones in a right lower pole calyx. Multiple residual stone around portions of the stent in the right UPJ. * Copious stool throughout the colon suggesting constipation. Some dense stool with possible rectal wall thickening raising question for very mild fecal impaction. * Severe emphysema noted in the lung bases. * Postoperative appearance of the superior segment of the right lower lobe. * 2. Resection of the previously identified spiculated lung nodules (biopsy showed adenocarcinoma). Some soft tissue attenuation noted adjacent to the suture line likely postoperative in appearance. The possibility of recurrent or residual disease not excluded. Follow-up recommended. * Atherosclerotic disease and extensive coronary arterial calcifications. The CT scanner at [facility] is accredited by the [employer] and the scans are performed using protocols designed to limit radiation exposure to as low as reasonably achievable to attain images of sufficient resolution adequate for diagnostic evaluation.
[2018-01-12 17:00] VITALS: BP 129/93
[2018-01-12] MEDS ORDERED: HYDROcodone/Acetamin 10/325 tab ORAL ONE (17:15)
--- NOTE | 2018-01-12 17:17 | Emergency Room Report ---
History of Present Illness General Chief Complaint: Abdominal Pain Source: Patient, EMS Present Illness HPI Patient present with complaints of right-sided flank and inguinal type discomfort Patient gives extended history of kidney stones with stent placement Pain is 10 out of 10 sharp Denies any chest pain or shortness of breath denies any vomiting or diarrhea Patient presents by paramedics patient reports recent visits to [place] He also reports that he has follow-up with his urologist in the next 2 weeks Allergies: Coded Allergies: No Known Allergies (Unverified , 05/20/17) Patient History Past Medical History: see triage record Pertinent Family History: none Reviewed Nursing Documentation: PMH: Agreed; PSxH: Agreed Nursing Documentation-PMH Hx Hypertension: Yes Hx Cancer: Yes - Lung Cancer Hx Gastrointestinal Problems: Yes - Kidney stone Hx Neurological Problems: No Review of Systems All Other Systems: negative except mentioned in HPI Physical Exam Vital Signs Date Time Temp Pulse Resp B/P (MAP) Pulse Ox O2 Delivery O2 Flow Rate FiO2 01/12/18 14:39 97.9 96 16 106/71 96 Room Air 97.9 01/12/18 17:00 2.0 Sp02 EP Interpretation: reviewed, normal General Appearance: no apparent distress - Patient appears thin however in no acute distress Head: normocephalic, atraumatic Eyes: bilateral eye PERRL, bilateral eye EOMI ENT: hearing grossly normal, normal pharynx, TMs + canals normal, uvula midline Neck: full range of motion, supple, no meningismus, no bony tend Respiratory: lungs clear, normal breath sounds, no rhonchi, no respiratory distress, no retraction, no accessory muscle use Cardiovascular #1: normal peripheral pulses, regular rate, rhythm, no edema, no gallop, no JVD, no murmur Gastrointestinal: normal bowel sounds, non tender, soft, no mass, no organomegaly, non-distended, no guarding, no hernia, no pulsatile mass, no rebound Genitourinary: no CVA tenderness Musculoskeletal: normal inspection Neurologic: oriented x3, responsive, logger driving horses III-XII nml as tested, motor strength/ tone normal, sensory intact Psychiatric: mood/affect normal Skin: normal color, no rash, warm/dry, palpation normal Lymphatic: normal inspection, no adenopathy Medical Decision Making Diagnostic Impression: Primary Impression: renal colic ER Course Multiple differentials considered Given the patient's discomfort Patient had imaging studies obtained IV hydration and pain medication CT was obtained radiology contacted me and asked regarding other previous studies as there appeared to be contrast After asking the patient reports that he had a chest CT today That was ordered by his heme oncologist Patient had previous lung carcinoma resection Is being followed for a possible new mass At this time no obvious signs of obstructive pathology are seen patient's urine does show evidence of blood however no convincing evidence of infection he has also recently finished a course of antibiotics patient has done better throughout his stay feel he requires improved follow-up with his urologist and primary physician improved home pain management and is otherwise stable for close outpatient follow-up Labs Test 01/12/18 15:06 White Blood Count 6.4 K/UL (4.8-10.8) Red Blood Count 4.35 M/UL (4.70-6.10) Hemoglobin 11.9 G/DL (14.2-18.0) Hematocrit 37.3 % (42.0-52.0) Mean Corpuscular Volume 86 FL (80-99) Mean Corpuscular Hemoglobin 27.5 PG (27.0-31.0) Mean Corpuscular Hemoglobin Concent 32.0 G/DL (32.0-36.0) Red Cell Distribution Width 16.2 % (11.6-14.8) Platelet Count 136 K/UL (150-450) Mean Platelet Volume 8.6 FL (6.5-10.1) Neutrophils (%) (Auto) 78.1 % (45.0-75.0) Lymphocytes (%) (Auto) 11.3 % (20.0-45.0) Monocytes (%) (Auto) 7.4 % (1.0-10.0) Eosinophils (%) (Auto) 1.7 % (0.0-3.0) Basophils (%) (Auto) 1.5 % (0.0-2.0) Urine Color [place] Urine Appearance Cloudy Urine pH 6.5 (4.5-8.0) Urine Specific [place] 1.005 (1.005-1.035) Urine Protein 3+ (NEGATIVE) Urine Glucose (UA) Negative (NEGATIVE) Urine Ketones Negative (NEGATIVE) Urine Occult Blood 5+ (NEGATIVE) Urine Nitrite Negative (NEGATIVE) Urine Bilirubin Negative (NEGATIVE) Urine Urobilinogen Normal MG/DL (0.0-1.0) Urine Leukocyte Esterase 2+ (NEGATIVE) Urine RBC Tntc /HPF (0 - 0) Urine WBC 10-15 /HPF (0 - 0) Urine Squamous Epithelial Cells None /LPF (NONE/OCC) Urine Bacteria Occasional /HPF (NONE) Sodium Level 137 MMOL/L (136-145) Potassium Level 4.2 MMOL/L (3.5-5.1) Chloride Level 102 MMOL/L (98-107) Carbon Dioxide Level 31 MMOL/L (21-32) Anion Gap 4 mmol/L (5-15) Blood Urea Nitrogen 12 mg/dL (7-18) Creatinine 0.6 MG/DL (0.55-1.30) Estimat Glomerular Filtration Rate > 60 mL/min (>60) Glucose Level 119 MG/DL (74-106) Calcium Level 10.2 MG/DL (8.5-10.1) Total Bilirubin 0.3 MG/DL (0.2-1.0) Aspartate Amino Transf (AST/SGOT) 16 U/L (15-37) Alanine Aminotransferase (ALT/SGPT) 17 U/L (12-78) Alkaline Phosphatase 142 U/L (46-116) Total Protein 7.4 G/DL (6.4-8.2) Albumin 2.7 G/DL (3.4-5.0) Globulin 4.7 g/dL Albumin/Globulin Ratio 0.6 (1.0-2.7) Lipase 88 U/L (73-393) CT/MRI/US Diagnostic Results CT/MRI/US Diagnostic Results : Impression CT abdomen pelvisIMPRESSION: Limited exam without intravenous and oral contrast. Within these limitations: * Dense contrast noted in the bilateral renal collecting systems. Question prior administration of intravenous contrast (no record of such administration today). * Indwelling right-sided ureteral stent appears appropriately positioned. There is mild asymmetric prominence of the right-sided calyces compared to the left. Comparison with imaging before and after ureteral stent placement would be helpful to assess for presence of obstructive uropathy. The right-sided collecting system appears significantly decompressed when compared to 05/22/2017. * Likely calyceal stones in a right lower pole calyx. Multiple residual stone around portions of the stent in the right UPJ. * Copious stool throughout the colon suggesting constipation. Some dense stool with possible rectal wall thickening raising question for very mild fecal impaction. * Severe emphysema noted in the lung bases. * Postoperative appearance of the superior segment of the right lower lobe. * 2. Resection of the previously identified spiculated lung nodules (biopsy showed adenocarcinoma). Some soft tissue attenuation noted adjacent to the suture line likely postoperative in appearance. The possibility of recurrent or residual disease not excluded. Follow-up recommended. * Atherosclerotic disease and extensive coronary arterial calcifications. Last Vital Signs Date Time Temp Pulse Resp B/P (MAP) Pulse Ox O2 Delivery O2 Flow Rate FiO2 01/12/18 17:13 97.9 01/12/18 17:00 78 19 129/93 99 Nasal Cannula 2.0 Status: improved Disposition: HOME, SELF-CARE Condition: Improved Referrals: [facility],REFERRING (PCP) Patient Instructions: Renal Colic, [id number] Additional Instructions: Follow-up with your urologist who placed the stent in the last 3 weeks is extremely important. Yanni Gutierrez DO Jan 12, 2018 17:17
[2018-01-12 17:18] VITALS: BP 129/93
== END 2018-01-12 17:22 | disposition home or self-care (01) ==
LOC: EDBD 14:45 → EMR 14:52
DX: N23 Unspecified renal colic (principal); I10 Essential (primary) hypertension; Z85.118 Personal history of other malignant neoplasm of bronchus and lung
CPT/HCPCS: 36415; 74176; 80053; 81003; 83690; 85025; 87086; 96361; 96374; 96375; 99284; J1885; J2270; J2405

== ENCOUNTER 2018-01-14 21:22 | Emergency (ER) | payer OTHER ==
[~2018-01-14] VITALS: Ht 172.7 cm; Wt 51.7 kg
[2018-01-14] MEDS ORDERED: Morphine Sulfate 4mg/ml Inj (IV USE ONLY) IVP ONE ×2 (21:45→23:00)
[2018-01-14] MEDS ORDERED: Ketorolac 30mg Inj IV ONE (21:45)
[2018-01-14 21:58] LABS: BASOPHILS % (AUTO) 0.9 % (0.0-2.0); EOSINOPHILS % (AUTO) 2.6 % (0.0-3.0); HEMATOCRIT 41.4 % (42.0-52.0); HEMOGLOBIN 12.9 G/DL (14.2-18.0); MEAN CORPUSCULAR VOLUME 86 FL (80-99); NEUTROPHILS % (AUTO) 72.5 % (45.0-75.0); PLATELET COUNT 152 K/UL (150-450); RED BLOOD COUNT 4.82 M/UL (4.70-6.10); RED CELL DISTRIBUTION WIDTH 15.7 % (11.6-14.8); WHITE BLOOD COUNT 5.4 K/UL (4.8-10.8)
[2018-01-14 21:59] LABS: APPEARANCE,URINE CLOUDY; BILIRUBIN, URINE NEGATIVE (NEGATIVE); COLOR,URINE PALE YELLOW; GLUCOSE, URINE (UA) NEGATIVE (NEGATIVE); KETONES,URINE NEGATIVE (NEGATIVE); LEUKOCYTE ESTERASE ,URINE 3+ (NEGATIVE); NITRITE,URINE NEGATIVE (NEGATIVE); PH,URINE 7 (4.5-8.0); PROTEIN,URINE 3+ (NEGATIVE); UROBILINOGEN,URINE NORMAL MG/DL (0.0-1.0)
[2018-01-14 22:00] VITALS: BP 128/81
[2018-01-14 22:16] LABS: ANION GAP 6 mmol/L (5-15); BLOOD UREA NITROGEN 9 mg/dL (7-18); CALCIUM 10.3 MG/DL (8.5-10.1); CARBON DIOXIDE 32 MMOL/L (21-32); CHLORIDE 102 MMOL/L (98-107); CREATININE 0.7 MG/DL (0.55-1.30); SODIUM 140 MMOL/L (136-145)
[2018-01-14 22:21] LABS: ALANINE AMINOTRANSFERASE 17 U/L (12-78); ALBUMIN 2.7 G/DL (3.4-5.0); ALBUMIN/GLOBULIN RATIO 0.5 (1.0-2.7); ALKALINE PHOSPHATASE 147 U/L (46-116); ASPARTATE AMINO TRANSFERASE 15 U/L (15-37); BILIRUBIN,TOTAL 0.3 MG/DL (0.2-1.0)
[2018-01-14] MEDS ORDERED: cefTRIAXone 1 GM in NS 55 ML IVPB ONE (22:45)
--- NOTE | 2018-01-14 22:49 | Emergency Room Report ---
History of Present Illness General Chief Complaint: Abdominal Pain Source: Patient, EMS Present Illness HPI 62-year-old male presents ED complaining of abdominal pain and dysuria times one day. Brought in by EMS from home. Patient states he has history of kidney stones and states that he was seen here recently for the kidney stones and was seen at [facility] a few days ago for the same problem. Was subsequently discharged. States pain is persisting and he has hematuria. Pain is sharp, 9 out of 10, nonradiating. Denies fevers or chills. Denies chest pain or shortness of breath. No other aggravating relieving factors. Denies any other associated symptoms Allergies: Coded Allergies: No Known Allergies (Unverified , 05/20/17) Patient History Past Medical History: HTN, COPD, other - lung cancer Past Surgical History: none Pertinent Family History: none Social History: Denies: smoking, alcohol use, drug use Immunizations: UTD Reviewed Nursing Documentation: PMH: Agreed; PSxH: Agreed Nursing Documentation-PMH Hx Cardiac Problems: Yes Hx Hypertension: Yes Hx COPD: Yes Hx Cancer: No Hx Neurological Problems: No Review of Systems All Other Systems: negative except mentioned in HPI Physical Exam Vital Signs Date Time Temp Pulse Resp B/P (MAP) Pulse Ox O2 Delivery O2 Flow Rate FiO2 01/14/18 21:19 97.7 91 18 123/87 97 Room Air 97.7 Sp02 EP Interpretation: reviewed, normal General Appearance: alert, GCS 15, non-toxic, mild distress, cachetic Head: normocephalic, atraumatic Eyes: bilateral eye normal inspection, bilateral eye PERRL ENT: hearing grossly normal, normal pharynx, no angioedema, normal voice Neck: full range of motion, supple/symm/no masses Respiratory: chest non-tender, lungs clear, normal breath sounds, speaking full sentences Cardiovascular #1: regular rate, rhythm, no edema Cardiovascular #2: 2+ carotid (R), 2+ carotid (L), 2+ radial (R), 2+ radial (L) , 2+ dorsalis pedis (R), 2+ dorsalis pedis (L) Gastrointestinal: normal bowel sounds, soft, non-distended, no guarding, no rebound, tenderness - supraupbic Rectal: deferred Genitourinary: normal inspection, no CVA tenderness Musculoskeletal: back normal, gait/station normal, normal range of motion, non- tender Neurologic: alert, oriented x3, responsive, motor strength/tone normal, sensory intact, speech normal Psychiatric: judgement/insight normal, memory normal, mood/affect normal, no suicidal/homicidal ideation Reflexes: 3+ bicep (R), 3+ bicep (L), 3+ tricep (R), 3+ tricep (L), 3+ knee (R) , 3+ knee (L) Skin: normal color, no rash, warm/dry, well hydrated Lymphatic: no adenopathy Medical Decision Making Diagnostic Impression: Primary Impression: Pyelonephritis Additional Impression: Kidney stone ER Course Hospital Course 62-year-old M presents to ED with lower abd pain. h/o kidney stones Differential diagnosis includes-appendicitis, cholecystitis, kidney stone, pyelonephritis Clinical course Patient placed on stretcher. After initial history and physical I ordered labs , IV fluids, pain medications and CT scan Labs - no leukocytosis, electrolytes ok, LFTs normal, UA + blood + bacteria CT scan on 01/12 was limited because of contrast administered doing a outpatient CT scan earlier in the day. Spoke to his urologist Dr. De; he agrees that patient likely requires admission to cause of multiple ED visits recently. Recommends repeat CT repeat CT shows mild hydro on right, kidney stone on left. Antibiotics given. patient required repeated doses of pain meds Because of insurance patient will be transferred I feel this is a highly complex case requiring extensive working including EKG/ Rhythm strip, Xray/CT/US, Blood/urine lab work, repeat exams while in ED, and administration of strong opiates/narcotics for pain control, admission to hospital or close patient follow up. Diagnosis - kidney stone, pyelonephritis Transferred in serious condition Labs Test 01/14/18 21:35 01/14/18 21:40 Urine Color Pale yellow Urine Appearance Cloudy Urine pH 7 (4.5-8.0) Urine Specific [place] 1.010 (1.005-1.035) Urine Protein 3+ (NEGATIVE) Urine Glucose (UA) Negative (NEGATIVE) Urine Ketones Negative (NEGATIVE) Urine Occult Blood 5+ (NEGATIVE) Urine Nitrite Negative (NEGATIVE) Urine Bilirubin Negative (NEGATIVE) Urine Urobilinogen Normal MG/DL (0.0-1.0) Urine Leukocyte Esterase 3+ (NEGATIVE) Urine RBC Tntc /HPF (0 - 0) Urine WBC 20-30 /HPF (0 - 0) Urine Squamous Epithelial Cells None /LPF (NONE/OCC) Urine Bacteria Occasional /HPF (NONE) White Blood Count 5.4 K/UL (4.8-10.8) Red Blood Count 4.82 M/UL (4.70-6.10) Hemoglobin 12.9 G/DL (14.2-18.0) Hematocrit 41.4 % (42.0-52.0) Mean Corpuscular Volume 86 FL (80-99) Mean Corpuscular Hemoglobin 26.8 PG (27.0-31.0) Mean Corpuscular Hemoglobin Concent 31.2 G/DL (32.0-36.0) Red Cell Distribution Width 15.7 % (11.6-14.8) Platelet Count 152 K/UL (150-450) Mean Platelet Volume 7.5 FL (6.5-10.1) Neutrophils (%) (Auto) 72.5 % (45.0-75.0) Lymphocytes (%) (Auto) 17.0 % (20.0-45.0) Monocytes (%) (Auto) 7.0 % (1.0-10.0) Eosinophils (%) (Auto) 2.6 % (0.0-3.0) Basophils (%) (Auto) 0.9 % (0.0-2.0) Sodium Level 140 MMOL/L (136-145) Potassium Level 4.0 MMOL/L (3.5-5.1) Chloride Level 102 MMOL/L (98-107) Carbon Dioxide Level 32 MMOL/L (21-32) Anion Gap 6 mmol/L (5-15) Blood Urea Nitrogen 9 mg/dL (7-18) Creatinine 0.7 MG/DL (0.55-1.30) Estimat Glomerular Filtration Rate > 60 mL/min (>60) Glucose Level 86 MG/DL (74-106) Calcium Level 10.3 MG/DL (8.5-10.1) Total Bilirubin 0.3 MG/DL (0.2-1.0) Aspartate Amino Transf (AST/SGOT) 15 U/L (15-37) Alanine Aminotransferase (ALT/SGPT) 17 U/L (12-78) Alkaline Phosphatase 147 U/L (46-116) Total Protein 7.7 G/DL (6.4-8.2) Albumin 2.7 G/DL (3.4-5.0) Globulin 5.0 g/dL Albumin/Globulin Ratio 0.5 (1.0-2.7) Lipase 86 U/L (73-393) CT/MRI/US Diagnostic Results CT/MRI/US Diagnostic Results : Imaging Test Ordered: CT A/P Impression A right-sided pigtail catheter present. Mild hydronephrosis with lower pole right renal calculus measures 2.5 cm similar to prior exam dated 01/12/18. 4 mm nonobstructing left renal calculus. Left renal cyst. Last Vital Signs Date Time Temp Pulse Resp B/P (MAP) Pulse Ox O2 Delivery O2 Flow Rate FiO2 01/14/18 21:55 97.7 01/14/18 21:19 91 18 123/87 97 Room Air Status: improved Disposition: [facility] Condition: Serious Referrals: [facility],REFERRING (PCP) Joseph Trujillo MD Jan 14, 2018 22:49
[2018-01-14 23:00] VITALS: BP 125/84
[2018-01-14] MEDS ORDERED: Tamsulosin 0.4mg cap ORAL ONE (23:00)
[2018-01-15 00:05] VITALS: BP 125/84
--- NOTE | 2018-01-15 11:38 | Diagnostic Imaging Report ---
Indication: Abdominal pain for 3 days Technique: Spiral acquisitions obtained through the abdomen and pelvis. No oral contrast utilized, per emergency room physician request No IV contrast utilized, per referring physician request.. Multiplanar reconstructions were generated. Total dose length product 479.45 mGycm. CTDIvol(s) 9.87 mGy. Dose reduction achieved using automated exposure control Comparison: 01/12/2018 Findings: Normal appendix. There are colonic diverticula. No evidence of diverticulitis. No small bowel distention. No free or loculated intraperitoneal gas or fluid. Again demonstrated is eventration of the left hemidiaphragm. The distal esophagus, stomach, duodenum are unremarkable. Lack of IV contrast limits assessment of the solid organs. Multiple hepatic cysts are again demonstrated. The liver appears somewhat enlarged. The gallbladder and bile ducts are unremarkable. The pancreas demonstrates a calcification in the tail. The adrenals are unremarkable. The left kidney demonstrates an interpolar region 4 mm calyceal calculus, obscured on the previous exam by contrast. It demonstrates a 2.4 cm upper pole cyst. The right kidney demonstrates a 2.4 cm upper pole cyst. There is a 2 mm interpolar region calyceal calculus, and to large lower pole calyceal calculi, one measuring 13 mm diameter the other measuring 17 mm diameter. There is a right nephroureteral stent again demonstrated, proximal pigtail in the upper pole collecting system, distal pigtail in the bladder. The right renal collecting system is minimally hydronephrotic, no more so than on the previous exam. The bladder itself is mildly distended, otherwise unremarkable. Unremarkable for age prostate. No pelvic mass or adenopathy. No retroperitoneal or mesenteric mass or adenopathy. The included lung bases demonstrate some fibrotic change on the right, some compressive atelectatic change on the left. The bones demonstrate degenerative spondylosis and mild lumbar scoliotic deformity. There is left hip hardware present. Compared with the prior exam, previously demonstrated urinary system contrast is no longer evident Impression: No acute abnormality Colonic diverticulosis. No evidence of diverticulitis Multiple large right intrarenal calculi, also previously reported. Right nephroureteral stent in good position. Only minimal right hydronephrosis, unchanged from previous study Small left renal nonobstructive left renal calyceal calculus Mild hepatomegaly Right basilar pulmonary fibrotic change in left basilar atelectatic changes Other findings as noted, including hepatic and renal cysts, degenerative spondylosis, lumbar scoliosis, left hip hardware This agrees with the preliminary interpretation provided overnight by [facility] teleradiology service. The CT scanner at [facility] is accredited by the [employer] and the scans are performed using protocols designed to limit radiation exposure to as low as reasonably achievable to attain images of sufficient resolution adequate for diagnostic evaluation.
== END 2018-01-15 00:05 | disposition short-term general hospital (02) ==
LOC: EDBD 21:22 → EMR 21:34
DX: N20.0 Calculus of kidney (principal); N13.30 Unspecified hydronephrosis; I10 Essential (primary) hypertension; J44.9 Chronic obstructive pulmonary disease, unspecified; Z85.118 Personal history of other malignant neoplasm of bronchus and lung
CPT/HCPCS: 36415; 74176; 80053; 81003; 83690; 85025; 87086; 96361; 96365; 96375; 96376; 99285; J0696; J1885; J2270